=== PATIENT | male | born 1980 | race Two or more races ===

== ENCOUNTER → 2016-12-11 | Day surgery (SDC) | payer MEDICARE, MEDICAID ==
[~2016-12-11] VITALS: Ht 175.3 cm; Wt 104.8 kg
[~2016-12-11] MED LIST: DEXAMETHASONE SOD PHOS 10MG/1ML VIAL INJ ONE; HYDROmorphone HCL 2 MG/ML VL IV PRN; KETOROLAC TROMETH 30 MG/ML 1ML VIAL IV ONE; LABETALOL HCL 5 MG/ML 4ML SYRINGE IV PRN; METOCLOPRAMIDE HCL 5MG/ml INJ 2ml VIAL IV ONE; MIDAZOLAM HCL 1MG/1ML-2 ML VIAL IV PRN; MIDAZOLAM HCL 1MG/1ML-2 ML VIAL ONE; MORPHINE SULF INJ 2 MG/ML SYRINGE 1ML IV PRN; ONDANSETRON HCL 4 MG/2 ML VIAL IV ONE; PROPOFOL 10 MG/ML 20 ML IV ONE; ceFAZolin 1GM/50ML D5W 50 ML IV ONE; ePHEDrine SULFATE 50 MG/ML AMP IV PRN; fentaNYL CITRATE 100 MCG/2 ML VL ONE
[2016-12-11 15:30] VITALS: BP 154/83
== END | disposition home or self-care (01) ==
LOC: SUR 09:29
PROVIDERS: ATTEND Urology
DX: N34.2 Other urethritis (principal); E66.9 Obesity, unspecified
CPT/HCPCS: 52224; C1769; J0690; J1100; J2250; J2704; J2765; J3010; J7030

== ENCOUNTER 2017-10-29 17:13 | Emergency (ER) | payer MEDICAID, MEDICARE ==
[~2017-10-29] VITALS: Ht 172.7 cm; Wt 158.8 kg
[2017-10-29 17:30] VITALS: BP 133/70
[2017-10-29 18:04] LABS: Basophils # (auto) 0 uL; Basophils % (auto) 0.5 % (0.0-2.0); Eosinophils # (auto) 0.1 uL; Eosinophils % (auto) 2.4 % (0.0-7.0); Hematocrit 40.8 % (41.0-53.0); Hemoglobin 13.7 g/dL (13.5-17.5); Lymphocytes # (auto) 0.9 uL; Lymphocytes % (auto) 17.7 % (10.0-50.0); Mean Corpuscular Hemoglobin 29.3 pg (28.0-32.0); Mean Corpuscular Hgb Conc. 33.6 g/dL (32.0-36.0); Mean Corpuscular Volume 87.2 fL (80.0-100.0); Monocytes # (auto) 0.6 uL; Monocytes % (auto) 11.1 % (0.0-12.0); Neutrophils # (auto) 3.4 uL; Neutrophils % (auto) 68.3 % (37.0-80.0); Nucleated Red Blood Cells % 0.3 %; Platelet Count (auto) 254 10^3/uL (140-450); Red Blood Cells 4.68 10^6/uL (4.5-5.90); Red Cell Distribution Width 14.7 % (11.8-14.3)
[2017-10-29 18:12] LABS: Albumin 3.1 g/dL (3.4-5.0); BUN/Creatinine Ratio 9.5; Bilirubin, Total 0.2 mg/dL (0.2-1.0); Calcium 8.3 mg/dL (8.5-10.1); Potassium 3.9 mmol/L (3.5-5.1); Total Protein 6.9 g/dL (6.4-8.2)
[2017-10-29 18:30] LABS: INR 0.97 (0.9-1.15); Partial Thromboplastin Time 27.2 sec (23.78-33.04); Prothrombin Time 10.4 sec (9.27-12.13)
== END 2017-10-29 22:21 | disposition home or self-care (01) ==
LOC: EDBD 17:13 → ER 17:17
DX: K52.9 Noninfective gastroenteritis and colitis, unspecified (principal); E78.5 Hyperlipidemia, unspecified; I10 Essential (primary) hypertension; E07.9 Disorder of thyroid, unspecified; Z88.8 Allergy status to other drugs, medicaments and biological substances
CPT/HCPCS: 36415; 80053; 85025; 85610; 85730

== ENCOUNTER 2024-03-16 22:48 | Inpatient (IN) | payer OTHER, MEDICAID ==
[~2024-03-16] VITALS: Ht 165.1 cm; Wt 156.2 kg
[2024-03-17 00:21] LABS: Basophils # (auto) 0 10 ^3/uL (0-0.2); Basophils % (auto) 0.4 % (0.0-2.0); Eosinophils # (auto) 0.1 10 ^3/uL (0-0.8); Eosinophils % (auto) 1.7 % (0.0-7.0); Hematocrit 35.7 % (41.0-53.0); Hemoglobin 12.3 g/dL (13.5-17.5); Lymphocytes # (auto) 1.5 10 ^3/uL (0.4-5.4); Lymphocytes % (auto) 28.3 % (10.0-50.0); Mean Corpuscular Hemoglobin 30.1 pg (28.0-32.0); Mean Corpuscular Hgb Conc. 34.6 g/dL (32.0-36.0); Monocytes # (auto) 0.5 10 ^3/uL (0-1.3); Monocytes % (auto) 10.2 % (0.0-12.0); Neutrophils # (auto) 3.1 10 ^3/uL (1.6-8.6); Neutrophils % (auto) 59.4 % (37.0-80.0); Platelet Count (auto) 168 10^3/uL (140-450); Red Cell Distribution Width 15.3 % (11.8-14.3); White Blood Cell 5.2 10^3/uL (4.4-10.8)
[2024-03-17 00:32] LABS: Chloride 107 mmol/L (98-107); Potassium 4.3 mmol/L (3.5-5.1); Sodium 139 mmol/L (136-145)
[2024-03-17 00:33] LABS: Anion Gap 7 (5-15); Carbon Dioxide 25 mmol/L (20-31)
[2024-03-17 00:34] LABS: Calcium 8.9 mg/dL (8.7-10.4)
[2024-03-17 00:38] LABS: Glucose 245 mg/dL (74-106)
[2024-03-17 00:39] LABS: BUN/Creatinine Ratio 13.9 (10.0-20.0); Blood Urea Nitrogen 11 mg/dL (9-23)
[2024-03-17 00:54] LABS: Lactic Acid w/Reflex 2.3 mmol/L (0.4-2.0)
--- NOTE | 2024-03-17 01:23 | ED.PDOC ---
History of Present Illness HPI Comments 43 y/o M with Hx of ASD, cerebral palsy, HLD. HTN, seizures, thyroid disease, and morbid obesity BIBA for c/o non-radiating, left-sided chest pain, shortness of breath, cough and fever, onset this morning. Patient is a resident of a longterm facility. He reports ongoing chest pain which is to left chest and radiates to the axillary area. He denies nausea, vomiting or sweating. Chief Complaint: Shortness of Breath Time Seen by MD: 00:40 Reviewed Notes: Nurses Notes, Improvement Lead Notes, Medications, Allergies Allergies: Coded Allergies: Paliperidone (Verified Allergy, Severe, 12/11/16) Risperidone (Verified Allergy, Severe, 12/11/16) Ondansetron (Unverified Allergy, Unknown, NAUSEA, 10/29/17) Sulfamethoxazole w/Trimethoprim (Verified Allergy, Unknown, 12/11/16) Information Source: Patient, Emergency Med Personnel Mode of Arrival: EMS Severity: Moderate Timing: Hours Duration: Since onset Prehospital treatment: 12 Lead EKG, [employer] Past Medical History PAST MEDICAL HISTORY: High Lipids, HTN, Seizures, Thyroid Past Medical History (Other): ASD, cerebral palsy, morbid obesity Surgical History: Denies all surgeries Family History Family History: Unknown Social History Smoker: Non-Smoker Alcohol: Denies ETOH Use Drugs: Denies Drug Use Lives In: Home (longterm) Constitutional: reports: fever; denies: chills, diaphoresis, fatigue, malaise, sweats, weakness, others EENTM: denies: blurred vision, double vision, ear bleeding, ear discharge, ear drainage, ear pain, ear ringing, eye pain, eye redness, hearing loss, mouth pain, mouth swelling, nasal discharge, nose bleeding, nose congestion, nose pain, photophobia, tearing, throat pain, throat swelling, voice changes, others Respiratory: reports: cough, shortness of breath; denies: hemoptysis, or thopnea, SOB at rest, SOB with excertion, stridor, wheezing, others Cardiovascular: reports: chest pain; denies: dizzy spells, diaphoresis, Dyspnea on exertion, edema, irregular heart beat, left arm pain, lightheadedness, palpitations, PND, syncope, others Gastrointestinal: denies: abdomen distended, abdominal pain, blood streaked bowels, constipated, diarrhea, dysphagia, difficulty swallowing, hematemesis, melena, nausea, poor appetite, poor fluid intake, rectal bleeding, rectal pain, vomiting, others Genitourinary: denies: burning, dysuria, flank pain, frequency, hematuria, incontinence, penile discharge, penile sore, pain, testicle pain, testicle swelling, urgency, others Neurological: denies: dizziness, fainting, headache, left sided numbness, left sided weakness, numbness, paresthesia, pre-existing deficit, right sided numbness, right sided weakness, seizure, speech problems, tingling, tremors, we akness, others Musculoskeletal: denies: back pain, gout, joint pain, joint swelling, muscle pain, muscle stiffness, neck pain, others Integumetry: denies: bruises, change in color, change in hair/nails, dryness, laceration, lesions, lumps, rash, wounds, others Allergic/Immunocompromised: denies: Difficulty Healing, Frequent Infections, Hives, Itching, others Hematologic/Lymphatic: denies: anemia, blood clots, easy bleeding, easy bruising, swollen glands, others Endocrine: denies: excessive hunger, excessive sweating, excessive thirst, excessive urination, flushing, intolerance to cold, intolerance to heat, unexplained weight gain, unexplained weight loss, others Psychiatric: denies: anxiety, bipolar disorder, depression, hopeless, panic disorder, schizophrenia, sleepless, suicidal, others All Other Systems: Reviewed and Negative Physical Exam General Appearance: No Apparent Distress, Obese HEENT: PERRL/EOMI Neck: Full Range of Motion, Normal Inspection Respiratory: Decreased Breath Sounds, No Accessory Muscle Use, No Respiratory Distress Cardiovascular: No JVD, Regular Rate/Rhythm Breast Exam: Deferred Gastrointestinal: Non Tender, Soft Genitalia: Deferred Pelvic: Deferred Rectal: Deferred Extremities: Leg edema, Normal range of motion, Non-tender, Pedal edema Neurologic: Alert, Normal Mood, Other (Flat affect) Cerebellar Function: NOT DONE Reflexes: NOT DONE Skin: Dry, Normal Color, Warm Lymphatic: NOT DONE Was a procedure done? Was a procedure done?: No EKG EKG : Comments Sinus rhythm, rate 73, normal intervals, normal axis, normal QRS, nonspecific T change. Differential Dx Considerations may include: Bronchitis, pneumonia, viral syndrome, URI, chest wall pain, ACS, OR, PE, among others X-Ray, Labs, Meds, VS Vital Signs Date Time Temp Pulse Resp B/P (MAP) Pulse Ox O2 Delivery O2 Flow Rate FiO2 03/16/24 23:01 98.9 74 17 140/83 (102) 96 03/16/24 23:00 17 96 Room Air* 0 21 03/16/24 22:51 73 Lab Test 03/17/24 04:25 03/17/24 01:55 03/16/24 23:59 Range/Units Urine Color Pending Urine Clarity Pending Urine pH Pending Urine Specific [place] Pending Urine Protein Pending Urine Ketones Pending Urine Blood Pending Urine Nitrite Pending Urine Bilirubin Pending Urine Urobilinogen Pending Urine Leukocyte Esterase Pending Urine RBC Pending Urine WBC Pending Urine Squamous Epithelial Cells Pending Urine Bacteria Pending Urine Glucose Pending Lactic Acid Level 1.6 2.3 *H 0.4-2.0 mmol/L Troponin I High Sensitivity < 3 L < 3 L </=54 ng/L White Blood Count 5.2 4.4-10.8 10^3/uL Red Blood Count 4.10 L 4.5-5.90 10^6/uL Hemoglobin 12.3 L 13.5-17.5 g/dL Hematocrit 35.7 L 41.0-53.0 % Mean Corpuscular Volume 87.0 80.0-100.0 fL Mean Corpuscular Hemoglobin 30.1 28.0-32.0 pg Mean Corpuscular Hemoglobin Concent 34.6 32.0-36.0 g/dL Red Cell Distribution Width 15.3 H 11.8-14.3 % Platelet Count 168 140-450 10^3/uL Mean Platelet Volume 7.5 6.9-10.8 fL Neutrophils (%) (Auto) 59.4 37.0-80.0 % Lymphocytes (%) (Auto) 28.3 10.0-50.0 % Monocytes (%) (Auto) 10.2 0.0-12.0 % Eosinophils (%) (Auto) 1.7 0.0-7.0 % Basophils (%) (Auto) 0.4 0.0-2.0 % Neutrophils # (Auto) 3.1 1.6-8.6 10 ^3/uL Lymphocytes # (Auto) 1.5 0.4-5.4 10 ^3/uL Monocytes # (Auto) 0.5 0-1.3 10 ^3/uL Eosinophils # (Auto) 0.1 0-0.8 10 ^3/uL Basophils # (Auto) 0 0-0.2 10 ^3/uL Nucleated Red Blood Cells 0.0 % Sodium Level 139 136-145 mmol/L Potassium Level 4.3 3.5-5.1 mmol/L Chloride Level 107 98-107 mmol/L Carbon Dioxide Level 25 20-31 mmol/L Anion Gap 7 5-15 Blood Urea Nitrogen 11 9-23 mg/dL Creatinine 0.79 0.700-1.30 mg/dL Glomerular Filtration Rate Calc 114 >90 mL/min BUN/Creatinine Ratio 13.9 10.0-20.0 Serum Glucose 245 H 74-106 mg/dL Calcium Level 8.9 8.7-10.4 mg/dL B-Type Natriuretic Peptide 9.26 0-100 pg/mL PROCEDURE(s): CXRP - CHEST PORTABLE REASON: cp ORDER NUMBER(s): [id number], ACCESSION NUMBER(s): [id number] CHEST RADIOGRAPH Indication: cp Technique: Single frontal view of the chest was obtained Comparison: None FINDINGS: Lines and Tubes: None Lungs: No focal consolidation. Pleura: No effusion. No pneumothorax. Cardiomediastinal contours: Unremarkable Bones: No acute osseous abnormality. IMPRESSION: 1. No acute cardiopulmonary disease. X-Ray, Labs, Meds, VS Comment 43 y/o M with Hx of ASD, cerebral palsy, HLD. HTN, seizures, thyroid disease, and morbid obesity complaining of shortness a breath, cough, subjective fever and chest pain Vitals unremarkable Exam remarkable for diminished breath sounds, lower extremity edema EKG sinus rhythm, nonspecific T changes Chest x-ray unremarkable CBC unremarkable, basic metabolic panel remarkable for glucose 245, BNP and serial troponins negative Lactate 2.3 Patient treated with the following in the ED: Albuterol 5 mg/Atrovent 0.5 mg nebulized, aspirin 325 mg p.o. On re-evaluation, patient appears to be resting comfortably, but still complaining of chest pain. Heart score is 4. Plan is to admit the patient for Cardiology evaluation. Time of 1ST Reevaluation: 01:10 Reevaluation 1ST: Unchanged Time of 2ND Reevaluation: 05:21 Reevaluation 2ND: Unchanged Patient Education/Counseling: Diagnosis, Treatment Family Education/Counseling: No Family Present Departure 1 Departure Time of Disposition: 05:21 Impression: Primary Impression: Chest pain Qualified Codes: I25.9 - Chronic ischemic heart disease, unspecified Disposition: 09 ADMITTED INPATIENT Admit to: Tele Condition: Guarded Critical Care Note Critical Care Time?: No Stability Stability form required: No Heart Score Heart Score: Heart Score Response (Comments) Value History Moderate Suspicious 1 EKG Repolarization Disturb 1 Age <45 0 Risk Factors >3 or Hx ASHD 2 Troponin Normal limit 0 Total 4 I personally scribed for ANTONETTE LOPEZ MD ([email or web address]) on 03/17/24 at 01:23. Electronically submitted by Denzel Robles [email or web address]). ANTONETTE LOPEZ MD Mar 17, 2024 01:23
[2024-03-17 04:51] LABS: Urine Bacteria None Seen /hpf (None Seen)
--- NOTE | 2024-03-17 05:12 | DVH ---
CHEST RADIOGRAPH Indication: cp Technique: Single frontal view of the chest was obtained Comparison: None FINDINGS: Lines and Tubes: None Lungs: No focal consolidation. Pleura: No effusion. No pneumothorax. Cardiomediastinal contours: Unremarkable Bones: No acute osseous abnormality. IMPRESSION: 1. No acute cardiopulmonary disease.
[2024-03-17] MEDS: ASPirin 325 MG TAB PO ONE (05:20)
[2024-03-17] MEDS: ALBUTEROL SULF 2.5 MG/0.5ML(0.5%) NEB SOLN NEB ONE (05:22)
[2024-03-17 05:23] VITALS: BP 118/80; PULSE 74; RESP 16; TEMP 97; O2SAT 100
[2024-03-17] MEDS: IPRATROPIUM BROM 0.5 MG/2.5ML INH SOL NEB ONE (05:23)
[2024-03-17 05:51] LABS: Urine Blood TRACE /uL (Negative); Urine Clarity Clear (Clear); Urine Color Yellow (Yellow); Urine Mucus FEW (None Seen); Urine Protein, UAD TRACE (Negative); Urine Specific Gravity 1.036 (1.001-1.035); Urine Urobilinogen 2 mg/dL (Negative); Urine WBC 2 /hpf (0 - 3)
[2024-03-17 06:36] VITALS: PULSE 69; RESP 20; O2SAT 97
--- NOTE | 2024-03-17 07:14 | DVHHP2 ---
History of Present Illness Reason for Visit: Chest pain History of Present Illness 43-year-old male presents for evaluation of chest pain. Patient presents with a one day history of left-sided chest pain that is nonradiating and associated shortness for breath. Denies fever or chills. Denies nausea or vomiting. No other acute complaints reported. Past Medical History Seizure, thyroid, autism, hypertension, dyslipidemia, morbid obesity, cerebral palsy Past Surgical History None Family History Noncontributory Smoke: No ALCOHOL: none Drugs: None Lives: with Family Review of Systems Review of Systems Systems are currently negative otherwise addressed in HPI. Allergies: Coded Allergies: Paliperidone (Verified Allergy, Severe, 12/11/16) Risperidone (Verified Allergy, Severe, 12/11/16) Ondansetron (Unverified Allergy, Unknown, NAUSEA, 10/29/17) Sulfamethoxazole w/Trimethoprim (Verified Allergy, Unknown, 12/11/16) Medications Current Medications Medications Dose Ordered Sig/[place] Route Start Time Stop Time Status Last Admin Dose Admin Lisinopril 20 mg DAILY PO 03/17/24 10:00 UNV Divalproex Sodium 500 mg BID PO 03/17/24 10:00 UNV Tamsulosin HCl 0.4 mg QPM PO 03/17/24 18:00 UNV Fluoxetine HCl 20 mg DAILY PO 03/17/24 10:00 UNV Quetiapine Fumarate 200 mg BID PO 03/17/24 10:00 UNV Aspirin 81 mg DAILY PO 03/17/24 10:00 UNV Atorvastatin Calcium 10 mg HS PO 03/17/24 22:00 UNV Albuterol 2.5 mg Q6HPRN PRN NEB 03/17/24 07:15 UNV Temazepam 15 mg QHSP PRN PO 03/17/24 07:15 UNV Ondansetron HCl 4 mg Q4HP PRN IV 03/17/24 07:15 UNV Acetaminophen 650 mg Q6HP PRN PO 03/17/24 07:15 UNV Nitroglycerin 0.4 mg Q5MINP PRN SL 03/17/24 07:15 UNV Morphine Sulfate 2 mg Q30M PRN IV 03/17/24 07:15 UNV Exam Vital Signs Vital Signs Date Time Temp Pulse Resp B/P (MAP) Pulse Ox O2 Delivery O2 Flow Rate FiO2 03/17/24 06:36 69 20 97 Room Air* 0 21 03/17/24 06:02 97.7 118/80 (40) 97.7 Exam Gen: 43-year-old male in mild distress, obese Skin: Warm, dry, normal color and texture, no rash. HEENT: Normocephalic atraumatic, mucous membranes moist and pink. Neck: Cervical and supraclavicular nodes normal without enlargement, trachea is midline, thyroid gland is normal without masses. Pulmonary: Clear to auscultation and percussion bilaterally. Cardiac: Regular rate and rhythm. No murmur Abdomen: Soft, nontender, nondistended, bowel sounds present all 4 quadrants, no guarding, no rigidity, no organomegaly. Extremities: No cyanosis, clubbing, no edema Neuro: Cranial nerves II through XII grossly intact, normal affect and speech, no focal motor deficits. Labs/Xrays ORDERING PHYSICIAN: ANTONETTE LOPEZ MD PROCEDURE(s): CXRP - CHEST PORTABLE REASON: cp ORDER NUMBER(s): [id number], ACCESSION NUMBER(s): [id number] CHEST RADIOGRAPH Indication: cp Technique: Single frontal view of the chest was obtained Comparison: None FINDINGS: Lines and Tubes: None Lungs: No focal consolidation. Pleura: No effusion. No pneumothorax. Cardiomediastinal contours: Unremarkable Bones: No acute osseous abnormality. IMPRESSION: 1. No acute cardiopulmonary disease. Labs Test 03/17/24 04:25 03/17/24 01:55 03/16/24 23:59 Range/Units Urine Color Yellow Yellow Urine Clarity Clear Clear Urine pH 6.0 5.0-9.0 Urine Specific [place] 1.036 H 1.001-1.035 Urine Protein Trace H Negative Urine Ketones 1+ H Negative Urine Blood Trace H Negative /uL Urine Nitrite Negative Negative Urine Bilirubin Negative Negative Urine Urobilinogen 2 H Negative mg/dL Urine Leukocyte Esterase Negative Negative /uL Urine RBC 13 0 - 3 /hpf Urine WBC 2 0 - 3 /hpf Urine Squamous Epithelial Cells Few <5 /hpf Urine Bacteria None seen None Seen /hpf Urine Mucus Few None Seen Urine Glucose 4+ H Normal mg/dL Lactic Acid Level 1.6 0.4-2.0 mmol/L Troponin I High Sensitivity < 3 L </=54 ng/L White Blood Count 5.2 4.4-10.8 10^3/uL Red Blood Count 4.10 L 4.5-5.90 10^6/uL Hemoglobin 12.3 L 13.5-17.5 g/dL Hematocrit 35.7 L 41.0-53.0 % Mean Corpuscular Volume 87.0 80.0-100.0 fL Mean Corpuscular Hemoglobin 30.1 28.0-32.0 pg Mean Corpuscular Hemoglobin Concent 34.6 32.0-36.0 g/dL Red Cell Distribution Width 15.3 H 11.8-14.3 % Platelet Count 168 140-450 10^3/uL Mean Platelet Volume 7.5 6.9-10.8 fL Neutrophils (%) (Auto) 59.4 37.0-80.0 % Lymphocytes (%) (Auto) 28.3 10.0-50.0 % Monocytes (%) (Auto) 10.2 0.0-12.0 % Eosinophils (%) (Auto) 1.7 0.0-7.0 % Basophils (%) (Auto) 0.4 0.0-2.0 % Neutrophils # (Auto) 3.1 1.6-8.6 10 ^3/uL Lymphocytes # (Auto) 1.5 0.4-5.4 10 ^3/uL Monocytes # (Auto) 0.5 0-1.3 10 ^3/uL Eosinophils # (Auto) 0.1 0-0.8 10 ^3/uL Basophils # (Auto) 0 0-0.2 10 ^3/uL Nucleated Red Blood Cells 0.0 % Sodium Level 139 136-145 mmol/L Potassium Level 4.3 3.5-5.1 mmol/L Chloride Level 107 98-107 mmol/L Carbon Dioxide Level 25 20-31 mmol/L Anion Gap 7 5-15 Blood Urea Nitrogen 11 9-23 mg/dL Creatinine 0.79 0.700-1.30 mg/dL Glomerular Filtration Rate Calc 114 >90 mL/min BUN/Creatinine Ratio 13.9 10.0-20.0 Serum Glucose 245 H 74-106 mg/dL Calcium Level 8.9 8.7-10.4 mg/dL B-Type Natriuretic Peptide 9.26 0-100 pg/mL Assessment/Plan Assessment/Plan Assessment Chest pain rule out ACS Hypertension Autism History of seizures Plan Admit the patient to telemetry to the hospitalist ACS protocol Echocardiogram pending Resume home medications Continue treatment per orders. Plan discussed with: Patient My Orders Orders - OLIVARESMARLINE FONTANA AGACNP Procedure Category Date Status Time * Cardiology Consult CONS 03/17/24 Transmitted 07:04 Lisinopril Tablet PHA 03/17/24 Logged (Zestril Tablet) 10:[address] Tablet PHA 03/17/24 Logged (Depakote "Dr" Tabl 10:00 Tamsulosin PHA 03/17/24 Logged Hydrochloride (Flomax) 18:00 Fluoxetine Capsule PHA 03/17/24 Logged (Prozac Capsule) 10:00 Quetiapine Fumarate PHA 03/17/24 Logged Tablet (Seroquel Tab 10:00 Aspirin Tablet PHA 03/17/24 Logged 10:00 Atorvastatin (Lipitor) PHA 03/17/24 Logged 22:00 Albuterol Medneb PHA 03/17/24 Logged (Ventolin Medneb) 07:15 Basic Metabolic Panel LAB 03/18/24 Verified 04:00 Admit ADMIT 03/17/24 Transmitted 07:04 Temazepam (Restoril) PHA 03/17/24 Logged 07:15 Ondansetron Hcl PHA 03/17/24 Logged (Zofran) 07:15 Complete Blood Count LAB 03/18/24 Verified 04:00 Cardiac DIET 03/17/24 Transmitted Diet-2gna,Lofat,Lochol Breakfast Echo 2d Mode Cardiac US 03/17/24 Logged DOP 07:04 Condition: Fair [facility] 03/17/24 In Process 07:04 Acetaminophen Tablet [facility] 03/17/24 Logged (Tylenol Tablet) 07:15 Bedrest With Bathroom [facility] 03/17/24 In Process Privileg 07:04 Nitroglycerin [facility] 03/17/24 Logged Sublingual (Ntrostat 07:15 Morphine Sulfate PHA 03/17/24 Logged Injection 07:15 Stat Ekg For Chest [facility] 03/17/24 In Process Pain 07:04 Notify Md Of Changes [facility] 03/17/24 In Process From Base 07:04 Assistant Distribution Manager For [facility] 03/17/24 In Process 24 Hours 07:04 Emergency Dysrhythmia [facility] 03/17/24 In Process Protocol 07:04 Rhythm Strips Once [facility] 03/17/24 In Process Every Shift 07:04 Oxygen By Nasal RT 03/17/24 Transmitted Cannula 07:04 Date of Service: Mar 17, 2024 Billing Provider: MARLINE OLIVARES Common Visit Codes: [id number] INP/OBS CARE (HIGH) MARLINE OLIVARES Mar 17, 2024 07:14
[2024-03-17] MEDS ORDERED: TEMAZEPAM 15 MG CAP PO PRN (07:15)
[2024-03-17] MEDS ORDERED: NITROGLYCERIN 0.4 MG SL TAB SL PRN (07:15)
[2024-03-17] MEDS ORDERED: ALBUTEROL SULF 2.5 MG/0.5ML(0.5%) NEB SOLN NEB PRN (07:15)
--- NOTE | 2024-03-17 08:58 | DVHINCON2 ---
Date Seen: Mar 17, 2024 Referring Physician TRINA Read Reason for Consultation Chest pain History of Present Illness This is a 43-year-old male who presented to the emergency room via EMS from a intermediate facility with a chief complaint of chest pain since last night. Describes his chest pain as substernal radiating to the left area, pressure- like, worse with inspiration/expiration, and worse with movement. The pain was reproducible upon auscultation. He underwent a 12 lead electrocardiogram revealing normal sinus rhythm. Serial troponin levels are negative. Significant medical history includes congenital heart disease with atrial septal defect, cerebral palsy, seizure activity, autism, hypertension, depression, and morbid obesity. Past Medical History Past medical history reviewed. No other significant than mentioned above. Past Surgical History Falling object retrieval from urethra Family History Unable to obtain family history at this time. Social History Unable to obtain social history this time. Allergies: Coded Allergies: Paliperidone (Verified Allergy, Severe, 12/11/16) Risperidone (Verified Allergy, Severe, 12/11/16) Ondansetron (Unverified Allergy, Unknown, NAUSEA, 10/29/17) Sulfamethoxazole w/Trimethoprim (Verified Allergy, Unknown, 12/11/16) Home Meds Home medications reviewed. Current Medications Current Medications Medications (Trade) Dose Ordered Sig/[place] Route PRN Reason Start Time Stop Time Status Last Admin Lisinopril (Zestril Tablet) 20 mg DAILY PO 03/17/24 10:00 Divalproex Sodium (Depakote "Dr" Tablet) 500 mg BID PO 03/17/24 10:00 Tamsulosin HCl (Flomax) 0.4 mg QPM PO 03/17/24 18:00 Fluoxetine HCl (PROzac CAPSULE) 20 mg DAILY PO 03/17/24 10:00 Quetiapine Fumarate (SEROquel TABLET) 200 mg BID PO 03/17/24 10:00 Aspirin 81 mg DAILY PO 03/17/24 10:00 Atorvastatin Calcium (Lipitor) 10 mg HS PO 03/17/24 22:00 Albuterol (Ventolin Medneb) 2.5 mg Q6HPRN PRN NEB SHORTNESS OF BREATH 03/17/24 07:15 Temazepam (Restoril) 15 mg QHSP PRN PO FOR INSOMNIA 03/17/24 07:15 Ondansetron HCl (Zofran) 4 mg Q4HP PRN IV NAUSEA / VOMITING 03/17/24 07:15 Acetaminophen (Tylenol Tablet) 650 mg Q6HP PRN PO PAIN SCALE 1-3 OR TEMP>100.4 03/17/24 07:15 Nitroglycerin (Ntrostat Sublingual) 0.4 mg Q5MINP PRN SL FOR CHEST PAIN 03/17/24 07:15 Morphine Sulfate 2 mg Q30M PRN IV FOR CHEST PAIN 03/17/24 07:15 Review of Systems Constitutional: No symptom reported Ears, Nose, & Throat: No symptom reported Eyes: No symptom reported Neurological: No symptoms reported Pulmonary/Respiratory: No symptom reported Cardiovascular: No symptom reported Gastrointestinal: No symptom reported Genitourinary: No symptom reported Musculoskeletal: Chest pain Skin: No symptom reported Psychiatric: No symptom reported Endocrine: No symptom reported Hemotologic/Lymphatic: No symptom reported Vital Signs Vital Signs Date Time Temp Pulse Resp B/P (MAP) Pulse Ox O2 Delivery O2 Flow Rate FiO2 03/17/24 06:36 69 20 97 Room Air* 0 21 03/17/24 06:02 97.7 118/80 (93) 97.7 Physical Exam General Appearance: Cooperative. Cognitive delay present. Morbidly obese. In no acute distress Head Exam: Normal inspection Neck Exam: Normal inspection. Non-tender. Normal alignment Pulmonary/Respiratory: Chest tender to palpation/auscultation. Clear bilateral breath sounds Cardiovascular/Chest: Regular rate and rhythm. S1, S2. NSR. No murmurs. No JVD. Peripheral Pulses: 2+ Radial (R). 2+ Radial (L). 2+ Pedal (R). 2+ Pedal (L) Abdominal Exam: Normal bowel sounds. Soft. Nontender. Ankle Exam: Negative ankle edema Lower extremities: Negative lower extremity edema Neuro/Mental Status: A&O x3. Coherent. Positive cognitive delay Thoughts/Psych: Normal thought pattern. Appropriate mood and affect. Passive Appearance: In no acute distress Skin Exam: Normal inspection. Normal color. Warm. Dry Labs/Diagnostic Data Labs Test 03/17/24 04:25 03/17/24 01:55 03/16/24 23:59 Range/Units Urine Color Yellow Yellow Urine Clarity Clear Clear Urine pH 6.0 5.0-9.0 Urine Specific [place] 1.036 H 1.001-1.035 Urine Protein Trace H Negative Urine Ketones 1+ H Negative Urine Blood Trace H Negative /uL Urine Nitrite Negative Negative Urine Bilirubin Negative Negative Urine Urobilinogen 2 H Negative mg/dL Urine Leukocyte Esterase Negative Negative /uL Urine RBC 13 0 - 3 /hpf Urine WBC 2 0 - 3 /hpf Urine Squamous Epithelial Cells Few <5 /hpf Urine Bacteria None seen None Seen /hpf Urine Mucus Few None Seen Urine Glucose 4+ H Normal mg/dL Lactic Acid Level 1.6 0.4-2.0 mmol/L Troponin I High Sensitivity < 3 L </=54 ng/L White Blood Count 5.2 4.4-10.8 10^3/uL Red Blood Count 4.10 L 4.5-5.90 10^6/uL Hemoglobin 12.3 L 13.5-17.5 g/dL Hematocrit 35.7 L 41.0-53.0 % Mean Corpuscular Volume 87.0 80.0-100.0 fL Mean Corpuscular Hemoglobin 30.1 28.0-32.0 pg Mean Corpuscular Hemoglobin Concent 34.6 32.0-36.0 g/dL Red Cell Distribution Width 15.3 H 11.8-14.3 % Platelet Count 168 140-450 10^3/uL Mean Platelet Volume 7.5 6.9-10.8 fL Neutrophils (%) (Auto) 59.4 37.0-80.0 % Lymphocytes (%) (Auto) 28.3 10.0-50.0 % Monocytes (%) (Auto) 10.2 0.0-12.0 % Eosinophils (%) (Auto) 1.7 0.0-7.0 % Basophils (%) (Auto) 0.4 0.0-2.0 % Neutrophils # (Auto) 3.1 1.6-8.6 10 ^3/uL Lymphocytes # (Auto) 1.5 0.4-5.4 10 ^3/uL Monocytes # (Auto) 0.5 0-1.3 10 ^3/uL Eosinophils # (Auto) 0.1 0-0.8 10 ^3/uL Basophils # (Auto) 0 0-0.2 10 ^3/uL Nucleated Red Blood Cells 0.0 % Sodium Level 139 136-145 mmol/L Potassium Level 4.3 3.5-5.1 mmol/L Chloride Level 107 98-107 mmol/L Carbon Dioxide Level 25 20-31 mmol/L Anion Gap 7 5-15 Blood Urea Nitrogen 11 9-23 mg/dL Creatinine 0.79 0.700-1.30 mg/dL Glomerular Filtration Rate Calc 114 >90 mL/min BUN/Creatinine Ratio 13.9 10.0-20.0 Serum Glucose 245 H 74-106 mg/dL Calcium Level 8.9 8.7-10.4 mg/dL B-Type Natriuretic Peptide 9.26 0-100 pg/mL Assessment Noncardiac chest pain, pleuritic in nature Rule out structural heart disease Congenital heart disease with ASD Hypertension Cerebral palsy Seizure activity Morbid obesity Autism Plan/Recommendation (Dr. Mackey) The patient presents with noncardiac chest pain. The symptoms are pleuritic in nature. Given history of congenital heart disease including an atrial septal defect we will continue further cardiac evaluation with a transthoracic echocardiogram with a bubble study. In the setting of an unremarkable ec hocardiogram, there is no further cardiac workup indicated at this time. Thank you for allowing us to participate in this patient's care. Please call if you have any questions or concerns. This medical document was created using an electronic medical record system with voice recognition software and computerized dictation system. Although this document has been carefully reviewed, there might still be some phonetic and typographical errors. Occasional wrong-word or ``sound-alike substitutions may have occurred due to the inherent limitations of voice recognition software. These areas are purely typographical due to imperfections of the software programs and do not reflect any compromise in the patient's medical care. Please read the chart carefully and recognize, using context, where these substitutions have occurred. Plan discussed with: Patient, Other Date of Service: Mar 17, 2024 Billing Provider: PATY MACKEY MD Cardiology Common Codes: [id number] INP/OBS CARE (High) STARKSANTONIA [facility] Mar 17, 2024 08:58
[2024-03-17 09:10] VITALS: PULSE 67; RESP 18; O2SAT 99
[2024-03-17] MEDS: ONDANSETRON HCL 4 MG/2 ML VIAL IV PRN (09:44)
[2024-03-17] MEDS: MORPHINE SULFATE INJ 2 MG/ml SYRG IV PRN (09:44)
--- NOTE | 2024-03-17 10:39 | ECG ---
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
[2024-03-17] MEDS: ASPirin 81 mg TAB PO SCH (11:05)
[2024-03-17] MEDS: QUEtiapine FUMARATE 100 MG TAB PO SCH (11:08)
[2024-03-17] MEDS: FLUoxetine HCL 20 MG CAP PO SCH (11:09)
[2024-03-17] MEDS: LISINOPRIL 20 MG TAB PO SCH (11:12)
[2024-03-17] MEDS ORDERED: CLON0.5T4 PO (11:51)
[2024-03-17] MEDS ORDERED: DIVA1TAB59 PO (11:51)
[2024-03-17] MEDS ORDERED: DIVA1TAB58 PO (11:51)
[2024-03-17] MEDS: TAMSULOSIN HYDROCHLORIDE 0.4 MG CAP PO SCH (18:00)
[2024-03-17 18:42] VITALS: O2SAT 96
[2024-03-17 21:00] VITALS: BP 99/58; PULSE 73; RESP 17; TEMP 98.5; O2SAT 96
[2024-03-17 21:19] LABS: COVID19 ANTIGEN SOFIA FIA NEGATIVE (NEGATIVE)
[2024-03-17 21:20] LABS: Rapid Influenza A Negative (Negative); Rapid Influenza B Negative (Negative)
[2024-03-17] MEDS: ATORVASTATIN 20 MG TAB PO SCH (21:50)
[2024-03-18] VITALS (10 sets, daily range): BP systolic 104–139; BP diastolic 58–77; PULSE 72–90; RESP 17–20; TEMP 98.3–98.6; O2SAT 93–100
[2024-03-18 05:57] LABS: Basophils # (auto) 0 10 ^3/uL (0-0.2); Basophils % (auto) 0.3 % (0.0-2.0); Eosinophils # (auto) 0.1 10 ^3/uL (0-0.8); Eosinophils % (auto) 2.5 % (0.0-7.0); Hematocrit 35.8 % (41.0-53.0); Hemoglobin 12.2 g/dL (13.5-17.5); Lymphocytes # (auto) 1.4 10 ^3/uL (0.4-5.4); Lymphocytes % (auto) 28.5 % (10.0-50.0); Mean Corpuscular Hemoglobin 29.5 pg (28.0-32.0); Mean Corpuscular Hgb Conc. 34.2 g/dL (32.0-36.0); Mean Corpuscular Volume 86.5 fL (80.0-100.0); Monocytes # (auto) 0.4 10 ^3/uL (0-1.3); Monocytes % (auto) 9.2 % (0.0-12.0); Neutrophils # (auto) 2.9 10 ^3/uL (1.6-8.6); Neutrophils % (auto) 59.5 % (37.0-80.0); Nucleated Red Blood Cells % 0.3 %; Platelet Count (auto) 177 10^3/uL (140-450); Red Blood Cells 4.14 10^6/uL (4.5-5.90); Red Cell Distribution Width 15.2 % (11.8-14.3); White Blood Cell 4.8 10^3/uL (4.4-10.8)
[2024-03-18 06:04] LABS: Anion Gap 7 (5-15); Carbon Dioxide 29 mmol/L (20-31); Chloride 105 mmol/L (98-107); Sodium 141 mmol/L (136-145)
[2024-03-18 06:05] LABS: Calcium 9.2 mg/dL (8.7-10.4)
[2024-03-18 06:10] LABS: BUN/Creatinine Ratio 13.5 (10.0-20.0); Blood Urea Nitrogen 10 mg/dL (9-23)
[2024-03-18 06:14] LABS: Glucose 120 mg/dL (74-106)
[2024-03-18] MEDS: ACETAMINOPHEN 325 MG TAB PO PRN (09:17)
[2024-03-18 12:29] LABS: Alanine Aminotransferase 12 U/L (7-40); Albumin 3.4 g/dL (3.2-4.8); Alkaline Phosphatase 65 U/L (46-116); Anion Gap 5 (5-15); Aspartate Aminotransferase 10 U/L (13-40); Bilirubin, Total 0.2 mg/dL (0.2-1.0); Blood Urea Nitrogen 13 mg/dL (9-23); Calcium 9.3 mg/dL (8.7-10.4); Carbon Dioxide 31 mmol/L (20-31); Chloride 104 mmol/L (98-107); Cholesterol 155 mg/dL (< 200); Glucose 131 mg/dL (74-106); HDL Cholesterol 31 mg/dL (40-59); LDL Cholesterol 92 mg/dL (< 100); Potassium 4.1 mmol/L (3.5-5.1); Sodium 140 mmol/L (136-145); Total Protein 5.9 g/dL (5.7-8.2)
[2024-03-18 13:11] LABS: Triglycerides 241 mg/dL (< 150)
--- NOTE | 2024-03-18 13:23 | DVHSR ---
APPROVED REPORT EXAM: Two-dimensional and M-mode echocardiogram with Doppler, color Doppler and Bubble Study. Blood Pressure: 104/64 mmHg INDICATION Chest Pain RISK FACTORS Obesity: Height: 5'5", DIMENSIONS LVDd5.0 (3.8-5.7cm)LA (2D)4.0 (1.9-4.0cm)Aortic Root3.1 (2.0-3.7cm) LVDs3.0 (2.5-4.0cm)LA (MM) (1.9-4.0cm)Aortic Cusp Exc2.4 (1.5-2.0cm) EF (%) 69.0 (55-70%)Rt. Atrium3.5 (1.9-4.0cm)Asc. Aorta3.3 cm IVSd1.0 (0.7-1.1cm)RV (D) (1.8-2.4cm) PWd0.8 (0.7-1.1cm) Mitral Valve MitralMitral Stenosis E wave0.62m/sMV Mean GR.mmHg A wave0.58m/sMV Peak GR.mmHg E/A ratio1.12D MVAcm2 DECEL Dyhc180thGEPCV 1/2 Timems Aortic Valve Aortic ValveAortic Stenosis V11.25m/Jaki Mean GR.3mmHg V21.22m/Jaki Peak GR.6mmHg LVOT Diameter2.3 (1.8-2.4cm)Doppler AVA4.25cm2 Pulmonic Valve V20.81m/s Other Information Quality : Technically LimitedRhythm : Technically limited study due to body habitus. Conclusion Normal left ventricular size and dimension. Normal left ventricular systolic function estimated ejec tion fraction 55%. Normal diastolic function. Normal right ventricular size and dimension. Normal right ventricular systolic function. Normal biatrial size and dimension. Normal aortic valve structure and function. Normal mitral valve structure and function. Normal tricuspid valve structure and function. The pulmonary valve is grossly normal. No pericardial effusion.
--- NOTE | 2024-03-18 13:36 | DVHPN2 ---
Consult Progress Note Subjective Patient reports: No new complaints Review of Systems: HEENT:Normal, CVS:Normal, RESPIRATORY:Normal, GI:Normal Objective vital signs Vital Sign Date Time Temp Pulse Resp B/P (MAP) Pulse Ox O2 Delivery O2 Flow Rate FiO2 03/18/24 13:00 73 17 115/68 (84) 94 03/18/24 10:03 Room Air* 0 21 03/18/24 09:00 98.3 98.3 Total Intake and Output 03/17/24 03/17/24 03/18/24 15:00 23:00 07:00 Intake Total 300 ml Balance 300 ml medications Current Medications Medications Dose Ordered Sig/Savana Route Start Time Stop Time Status Last Admin Dose Admin Lisinopril 20 mg DAILY PO 03/17/24 10:00 03/18/24 09:19 20 MG Divalproex Sodium 500 mg BID PO 03/17/24 10:00 03/18/24 09:20 500 MG Tamsulosin HCl 0.4 mg QPM PO 03/17/24 18:00 Fluoxetine HCl 20 mg DAILY PO 03/17/24 10:00 03/18/24 09:23 20 MG Quetiapine Fumarate 200 mg BID PO 03/17/24 10:00 03/18/24 09:18 200 MG Aspirin 81 mg DAILY PO 03/17/24 10:00 03/18/24 09:19 81 MG Atorvastatin Calcium 10 mg HS PO 03/17/24 22:00 03/17/24 21:50 10 MG Albuterol 2.5 mg Q6HPRN PRN NEB 03/17/24 07:15 Temazepam 15 mg QHSP PRN PO 03/17/24 07:15 Ondansetron HCl 4 mg Q4HP PRN IV 03/17/24 07:15 03/17/24 09:44 4 MG Acetaminophen 650 mg Q6HP PRN PO 03/17/24 07:15 03/18/24 09:17 650 MG Nitroglycerin 0.4 mg Q5MINP PRN SL 03/17/24 07:15 Morphine Sulfate 2 mg Q30M PRN IV 03/17/24 07:15 03/17/24 09:44 2 MG Examination: GENERAL:Normal, NECK:Normal laboratory and microbiology Laboratory Tests 03/18/24 11:56 03/18/24 05:28 Test 03/18/24 11:56 Range/Units Serum Glucose 131 H 74-106 mg/dL Problem List/Assessment/Plan Problems(with codes): (1) Chest pain (2) Cerebral palsy Problem List/Assessment/Plan Noncardiac chest pain, pleuritic in nature Rule out structural heart disease Congenital heart disease with ASD Hypertension Cerebral palsy Seizure activity Morbid obesity Autism Echocardiogram shows normal left ventricular systolic function with estimated ejection fraction 65%. No dynamic EKG changes was noted. No significant valve pathology was noted. Normal chamber size indicating absence of intracardiac shunting. Patient's symptom is unlikely due to cardiac etiology. I would recommend ruling out other causes of of noncardiac chest pain. Plan discussed with: Patient Date of Service: Mar 18, 2024 Billing Provider: PATY MACKEY MD Common Visit Codes: [id number] INP/OBS CARE(HIGH) PATY MACKEY MD Mar 18, 2024 13:35
--- NOTE | 2024-03-18 16:55 | DVHPNRES ---
Progress Note Date Seen: Mar 18, 2024 Resident Creating Document: CINDYTROYSHARRONDESTINY RESIDENT Medical Necessity Reason Pt with a Central, PICC or Fol: No Subjective Review of Systems Patient is a 43-year-old male with a past medical history of seizure disorder, hypothyroidism, autism, hypertension, dyslipidemia, , depression, morbid obesity, ?atrial septal defec, obstructive sleep apnea presented to the ED with a chief complaint of chest pain for 1 day prior to admission. Patient reported that he felt substernal , pressure-like and sometimes sharp chest pain radiated with a left arm which happened on sitting with worsening on taking deep breaths and change of position, associated with the shortness of breath patient denied palpitations, nausea, vomiting, abdominal pain, headache, fever, chills. On arrival to the ED 12 lead ECG was done which revealed sinus rhythm without any evidence of acute ischemia, troponin levels were within normal limits. Chest x- ray showed no acute cardiopulmonary disease. On reviewing the labs patient had elevated lactic acid at 2.3 and triglyceride elevated at 240 mg/dL. Past medical history: As per HPI Past surgical history: None reported Social history: Patient reveals that he lives in a shelter, denies smoking, alcohol, drug use. Family history: Not able to get a proper history Home medications: Lisinopril 20 mg once daily, divalproex sodium 500 mg b.i.d. p.o., fluoxetine 20 mg daily p.o., quetiapine 200 mg b.i.d. p.o., tamsulosin 0.4 mg Review of systems Patient seen and examined at the bedside. Patient is somnolent but responds to questions and wakes up to stimulation. A/O x 3. Patient reported mild chest pain which had reproducible tenderness on palpation. Patient repeatedly kept saying that he had a hole in his heart. Patient was evaluated by Cardiology and echocardiogram with a bubble study was done which showed normal left ventricular ejection fraction 65%, no significant valve pathology, normal chamber size indicating absence of intracardiac shunting. Patient had cough nonproductive for which he was started on ceftriaxone. Patient's urinalysis showed elevated urine specific gravity likely due to dehydration. Objective vital signs Vital Sign Date Time Temp Pulse Resp B/P (MAP) Pulse Ox O2 Delivery O2 Flow Rate FiO2 03/18/24 13:00 73 17 115/68 (84) 94 03/18/24 10:03 Room Air* 0 21 03/18/24 09:00 98.3 98.3 Total Intake and Output 03/17/24 03/17/24 03/18/24 15:00 23:00 07:00 Intake Total 300 ml Balance 300 ml medications Current Medications Medications Dose Ordered Sig/Savana Route Start Time Stop Time Status Last Admin Dose Admin Lisinopril 20 mg DAILY PO 03/17/24 10:00 03/18/24 09:19 20 MG Divalproex Sodium 500 mg BID PO 03/17/24 10:00 03/18/24 09:20 500 MG Tamsulosin HCl 0.4 mg QPM PO 03/17/24 18:00 Fluoxetine HCl 20 mg DAILY PO 03/17/24 10:00 03/18/24 09:23 20 MG Quetiapine Fumarate 200 mg BID PO 03/17/24 10:00 03/18/24 09:18 200 MG Aspirin 81 mg DAILY PO 03/17/24 10:00 03/18/24 09:19 81 MG Albuterol 2.5 mg Q6HPRN PRN NEB 03/17/24 07:15 Temazepam 15 mg QHSP PRN PO 03/17/24 07:15 Ondansetron HCl 4 mg Q4HP PRN IV 03/17/24 07:15 03/17/24 09:44 4 MG Acetaminophen 650 mg Q6HP PRN PO 03/17/24 07:15 03/18/24 09:17 650 MG Nitroglycerin 0.4 mg Q5MINP PRN SL 03/17/24 07:15 Morphine Sulfate 2 mg Q30M PRN IV 03/17/24 07:15 03/17/24 09:44 2 MG Atorvastatin Calcium 20 mg HS PO 03/18/24 22:00 Ceftriaxone Sodium 50 ml @ 100 mls/hr DAILY@09 IV 03/19/24 09:00 Examination Physical Examination Gen - no pallor, no icterus, no cyanosis, no clubbing, no LAD, no edema . Skin - Patients skin is warm and dry HEENT - normocephalic, atraumatic, moist mucous membranes. Neck - full ROM, no LAD, no JVD Pulmonary - B/L vesicular breath sounds. no crackles , no wheezing, no stridor. cardiovascular - normal S1,S2 heard. no murmurs heard. peripheral pulses normal radial 2+, pedal 2+. capillary refill normal <2 secs. GI - soft abdomen without tenderness to palpation . no hepatospleenomegaly. Bowel sounds + Neurological - Patient is A/O X 3. Bilateral upper extremity strength 5/5, bilateral lower extremity strength 5/5, no facial droop, normal speech, no tremor, no sensory deficiets. laboratory and microbiology Laboratory Tests 03/18/24 11:56 03/18/24 05:28 Test 03/18/24 11:56 Range/Units Serum Glucose 131 H 74-106 mg/dL Problem List/Assessment/Plan Problem List/Assessment/Plan Assessment and plan # Chest pain ACS ruled out likely costochondritis - 12 lead ECG showed normal sinus rhythm without acute ischemic changes - troponins within normal limit - echocardiogram showed normal left ventricular ejection fraction 65%,, no significant valve pathology, normal chamber size indicating no intracardiac shunt. - patient given acetaminophen mild, ibuprofen moderate, morphine severe pain # ? Community-acquired pneumonia likely due to Gram +/- bacteria - patient is started on Rocephin 1 g IV daily - saturating above 95% on room air # lactic acidosis - Likely due to dehydration - Patient given IV fluids # history of seizure disorder Patient is started on home medication of divalproex 500 mg p.o. b.i.d. # history of hypertension On lisinopril 20 mg once daily # history of depression Started on fluoxetine 20 mg p.o. daily # history of a obstructive sleep apnea Patient on CPAP at night Goals of care discussed with the patient for over 20 minutes. Full code Plan discussed with Dr. Casiano Plan discussed with: Patient My Orders My Orders Orders - KATIE MITCHELL Procedure Category Date Status Time Atorvastatin (Lipitor) PHA 03/18/24 In Process 22:00 Ceftriaxone 1gm/50ml PHA 03/19/24 In Process D5w (Rocephin) 09:00 Date of Service: Mar 18, 2024 Billing Provider: ADITI COTO MD Common Visit Codes: [id number] INP/OBS CARE(HIGH) KATIE MITCHELL RESIDENT Mar 18, 2024 16:55 ADITI COTO MD Mar 18, 2024 22:35
[2024-03-18] MEDS: cefTRIAXone 1GM/50ML D5W 50 ML IV ONE (17:59)
[2024-03-18] MEDS ORDERED: IBUPROFEN 400 MG TAB PO PRN (19:45)
[2024-03-18] MEDS: ATORVASTATIN 20 MG TAB PO SCH (20:44)
[2024-03-18] MEDS: LACTATED RINGER'S 1,000 ML IV ONE (20:45)
[2024-03-19 01:00] VITALS: BP 110/60; PULSE 80; RESP 18; O2SAT 98
[2024-03-19 02:20] VITALS: PULSE 82; O2SAT 98
[2024-03-19 05:00] VITALS: BP 98/60; PULSE 78; RESP 20; TEMP 98.8; O2SAT 99
[2024-03-19 06:32] LABS: Basophils # (auto) 0 10 ^3/uL (0-0.2); Basophils % (auto) 0.2 % (0.0-2.0); Eosinophils # (auto) 0.1 10 ^3/uL (0-0.8); Eosinophils % (auto) 2.6 % (0.0-7.0); Hematocrit 34.1 % (41.0-53.0); Hemoglobin 11.6 g/dL (13.5-17.5); Lymphocytes # (auto) 1.1 10 ^3/uL (0.4-5.4); Lymphocytes % (auto) 26.1 % (10.0-50.0); Mean Corpuscular Hemoglobin 29.7 pg (28.0-32.0); Mean Corpuscular Hgb Conc. 34.1 g/dL (32.0-36.0); Mean Corpuscular Volume 87.1 fL (80.0-100.0); Monocytes # (auto) 0.4 10 ^3/uL (0-1.3); Monocytes % (auto) 8.8 % (0.0-12.0); Neutrophils # (auto) 2.7 10 ^3/uL (1.6-8.6); Neutrophils % (auto) 62.3 % (37.0-80.0); Nucleated Red Blood Cells % 0.1 %; Platelet Count (auto) 170 10^3/uL (140-450); Red Blood Cells 3.92 10^6/uL (4.5-5.90); Red Cell Distribution Width 15.3 % (11.8-14.3); White Blood Cell 4.3 10^3/uL (4.4-10.8)
[2024-03-19 06:41] LABS: Anion Gap 8 (5-15); Calcium 9.1 mg/dL (8.7-10.4); Carbon Dioxide 29 mmol/L (20-31); Chloride 104 mmol/L (98-107); Potassium 4.1 mmol/L (3.5-5.1); Sodium 141 mmol/L (136-145)
[2024-03-19 06:47] LABS: BUN/Creatinine Ratio 12.8 (10.0-20.0); Blood Urea Nitrogen 11 mg/dL (9-23)
[2024-03-19 06:51] LABS: Glucose 245 mg/dL (74-106)
[2024-03-19 07:45] VITALS: PULSE 75
[2024-03-19 08:27] VITALS: O2SAT 96
[2024-03-19 08:35] VITALS: BP 117/62; PULSE 72; RESP 17; O2SAT 95
[2024-03-19] MEDS: cefTRIAXone 1GM/50ML D5W 50 ML IV SCH (09:00)
--- NOTE | 2024-03-19 21:03 | DVHDSRES ---
Discharge Summary Date of Admission Resident Creating Document: KATIE MITCHELL RESIDENT Mar 17, 2024 at 07:04 Date of Discharge: Mar 19, 2024 Admitting Diagnosis Chest pain rule out ACS Hypertension Autism History of seizures Wounds: no wounds Labs/Diagnostic Data: Laboratory Results Test 03/19/24 05:34 03/18/24 11:56 03/17/24 20:20 03/17/24 04:25 White Blood Count 4.3 10^3/uL (4.4-10.8) Red Blood Count 3.92 10^6/uL (4.5-5.90) Hemoglobin 11.6 g/dL (13.5-17.5) Hematocrit 34.1 % (41.0-53.0) Mean Corpuscular Volume 87.1 fL (80.0-100.0) Mean Corpuscular Hemoglobin 29.7 pg (28.0-32.0) Mean Corpuscular Hemoglobin Concent 34.1 g/dL (32.0-36.0) Red Cell Distribution Width 15.3 % (11.8-14.3) Platelet Count 170 10^3/uL (140-450) Mean Platelet Volume 7.3 fL (6.9-10.8) Neutrophils (%) (Auto) 62.3 % (37.0-80.0) Lymphocytes (%) (Auto) 26.1 % (10.0-50.0) Monocytes (%) (Auto) 8.8 % (0.0-12.0) Eosinophils (%) (Auto) 2.6 % (0.0-7.0) Basophils (%) (Auto) 0.2 % (0.0-2.0) Neutrophils # (Auto) 2.7 10 ^3/uL (1.6-8.6) Lymphocytes # (Auto) 1.1 10 ^3/uL (0.4-5.4) Monocytes # (Auto) 0.4 10 ^3/uL (0-1.3) Eosinophils # (Auto) 0.1 10 ^3/uL (0-0.8) Basophils # (Auto) 0 10 ^3/uL (0-0.2) Nucleated Red Blood Cells 0.1 % Sodium Level 141 mmol/L (136-145) Potassium Level 4.1 mmol/L (3.5-5.1) Chloride Level 104 mmol/L (98-107) Carbon Dioxide Level 29 mmol/L (20-31) Anion Gap 8 (5-15) Blood Urea Nitrogen 11 mg/dL (9-23) Creatinine 0.86 mg/dL (0.700-1.30) Glomerular Filtration Rate Calc 112 mL/min (>90) BUN/Creatinine Ratio 12.8 (10.0-20.0) Serum Glucose 245 mg/dL (74-106) Calcium Level 9.1 mg/dL (8.7-10.4) Valproic Acid Level 46.7 ug/mL (50-100) Total Bilirubin 0.2 mg/dL (0.2-1.0) Aspartate Amino Transferase (AST) 10 U/L (13-40) Alanine Aminotransferase (ALT) 12 U/L (7-40) Alkaline Phosphatase 65 U/L (46-116) Total Protein 5.9 g/dL (5.7-8.2) Albumin 3.4 g/dL (3.2-4.8) Triglycerides Level 241 mg/dL (< 150) Cholesterol Level 155 mg/dL (< 200) LDL Cholesterol 92 mg/dL (< 100) HDL Cholesterol 31 mg/dL (40-59) Influenza Type A Antigen Negative (Negative) Influenza Type B Antigen Negative (Negative) SARS-CoV-2 Antigen (Rapid) Negative (NEGATIVE) Urine Color Yellow (Yellow) Urine Clarity Clear (Clear) Urine pH 6.0 (5.0-9.0) Urine Specific [place] 1.036 (1.001-1.035) Urine Protein Trace (Negative) Urine Ketones 1+ (Negative) Urine Blood Trace /uL (Negative) Urine Nitrite Negative (Negative) Urine Bilirubin Negative (Negative) Urine Urobilinogen 2 mg/dL (Negative) Urine Leukocyte Esterase Negative /uL (Negative) Urine RBC 13 /hpf (0 - 3) Urine WBC 2 /hpf (0 - 3) Urine Squamous Epithelial Cells Few /hpf (<5) Urine Bacteria None seen /hpf (None Seen) Urine Mucus Few (None Seen) Urine Glucose 4+ mg/dL (Normal) Test 03/17/24 01:55 03/16/24 23:59 Lactic Acid Level 1.6 mmol/L (0.4-2.0) Troponin I High Sensitivity < 3 ng/L (</=54) B-Type Natriuretic Peptide 9.26 pg/mL (0-100) Other Laboratory Tests 03/19/24 05:34 Brief Hx & Hospital Course: Patient is a 43-year-old male with a past medical history of seizure disorder, hypothyroidism, autism, hypertension, dyslipidemia, , depression, morbid obesity, ?atrial septal defec, obstructive sleep apnea presented to the ED with a chief complaint of chest pain for 1 day prior to admission. Patient reported that he felt substernal , pressure-like and sometimes sharp chest pain radiated with a left arm which happened on sitting with worsening on taking deep breaths and change of position, associated with the shortness of breath patient denied palpitations, nausea, vomiting, abdominal pain, headache, fever, chills. On arrival to the ED 12 lead ECG was done which revealed sinus rhythm without any evidence of acute ischemia, troponin levels were within normal limits. Chest x- ray showed no acute cardiopulmonary disease. On reviewing the labs patient had elevated lactic acid at 2.3 and triglyceride elevated at 240 mg/dL. Cardiology were consulted and an echocardiogram was done which showed normal LVEF 65%, no significant valve pathology was noted, normal chamber size indicated absence of intracardiac shunting. Cardiology recommended ruling out noncardiac causes of chest pain. Patient reported that he was diagnosed with a obstructive sleep apnea and has trouble sleeping at night with nighttime awakenings occasionally. During the hospital stay patient was given CPAP machine at night which helped him sleep better at patient reported feeling better the next morning. Patient is recommended to be worked up for obstructive sleep apnea in the outpatient clinic with the primary care provider. Patient is being discharged in stable condition to a long term and is advised to continue on his home medication and follow up with the primary care provider in 1 week. Patient denied chest pain, shortness of breath, dizziness at the time discharge. Consults/Reason for consult Cardiology consultation for chest pain, history of ASD Operations or Procedures Echocardiogram was done which was reported as normal left ventricular systolic function with estimated ejection fraction 65%. No dynamic EKG changes was noted. No significant valve pathology was noted. Normal chamber size indicating absence of intracardiac shunting. Condition at Discharge: Good Final Diagnosis/Problems List # Chest pain ACS ruled out likely costochondritis # H/o ASD, ECHO showed no evidemce of intracardiac shunting # ?Community-acquired pneumonia likely due to Gram +/- bacteria # lactic acidosis, resolved # history of seizure disorder # history of hypertension # history of depression # history of a obstructive sleep apnea Discharge Disposition: Home Discharge Instruct/Medications Diet: Regular Activity: No Restrictions, As Tolerated Activity comment: adivised to sleep in right or left lateral position until the patient gets the CPAP machine Follow Up/Referral: Follow up with the PCP in one week for further workup of ZENOBIA and need for CPAP machine at night. Follow up in the D/C clinic in one week Medications: continue home meds Discharge Statement: "Patient was advised to return to the ER or call 911 if any headaches, dizziness, shortness of breath, chest pain, abdominal pain, bleeding, fevers, or worsening of medical condition. Patient was counseled about treatment plan, medications, possible side effects, patientverbalized understanding. All questions were answered to the best of my ability. This discharge took greater then 30 minutes in planning, reviewing documentation, counseling the patient, and discussing with other team members." ASSESSMENT ASSESSMENT Assessment # Chest pain ACS ruled out likely costochondritis # H/o ASD, ECHO showed no evidemce of intracardiac shunting # ?Community-acquired pneumonia likely due to Gram +/- bacteria # lactic acidosis, resolved # history of seizure disorder # history of hypertension # history of depression # history of a obstructive sleep apnea Date of Service: Mar 19, 2024 Billing Provider: ADITI COTO MD Common Visit Codes: [id number] DISCH DAY >30min KATIE MITCHELL RESIDENT Mar 19, 2024 21:02 ADITI COTO MD Mar 20, 2024 09:07
== END 2024-03-19 16:20 | disposition home or self-care (01) | DRG 205 ==
LOC: EDBD 22:48 → ER 22:48 → TELE 03-17 07:04 → TELE-WESTW 03-17 20:53
PROVIDERS: ADMIT Student in an Organized Health Care Education/Training Program; ATTEND Emergency Medicine
PROC: 5A09357 Assistance with Respiratory Ventilation, Less than 24 Consecutive Hours, Continuous Positive Airway Pressure (ICD-10-PCS; principal; 2024-03-18)
DX: M94.0 Chondrocostal junction syndrome [Tietze] (principal); J15.69 Pneumonia due to other Gram-negative bacteria; J15.9 Unspecified bacterial pneumonia; F84.0 Autistic disorder; Z68.43 Body mass index [BMI] 50.0-59.9, adult; Q21.10 Atrial septal defect, unspecified; I10 Essential (primary) hypertension; G80.9 Cerebral palsy, unspecified; E66.01 Morbid (severe) obesity due to excess calories; E03.9 Hypothyroidism, unspecified; Z20.822 Contact with and (suspected) exposure to COVID-19; F32.A Depression, unspecified; G47.33 Obstructive sleep apnea (adult) (pediatric); G40.909 Epilepsy, unspecified, not intractable, without status epilepticus; Z88.3 Allergy status to other anti-infective agents
CPT/HCPCS: 36415; 71045; 80048; 80053; 80061; 80164; 81001; 83605; 83880; 84484; 85025; 87426; 87804; 93005; 93306; 94640; 94660; G0378; J2405

== ENCOUNTER 2024-05-03 23:38 | Emergency (ER) | payer OTHER, MEDICAID ==
[~2024-05-03] VITALS: Ht 180.3 cm; Wt 113.6 kg
[~2024-05-03 23:38] MED LIST changes: +CLON0.5T4 PO; -DEXAMETHASONE SOD PHOS 10MG/1ML VIAL INJ ONE; +DIVA1TAB58 PO; +DIVA1TAB59 PO; -HYDROmorphone HCL 2 MG/ML VL IV PRN; -KETOROLAC TROMETH 30 MG/ML 1ML VIAL IV ONE; -LABETALOL HCL 5 MG/ML 4ML SYRINGE IV PRN; -METOCLOPRAMIDE HCL 5MG/ml INJ 2ml VIAL IV ONE; -MIDAZOLAM HCL 1MG/1ML-2 ML VIAL IV PRN; -MIDAZOLAM HCL 1MG/1ML-2 ML VIAL ONE; -MORPHINE SULF INJ 2 MG/ML SYRINGE 1ML IV PRN; -ONDANSETRON HCL 4 MG/2 ML VIAL IV ONE; -PROPOFOL 10 MG/ML 20 ML IV ONE; -ceFAZolin 1GM/50ML D5W 50 ML IV ONE; -ePHEDrine SULFATE 50 MG/ML AMP IV PRN; -fentaNYL CITRATE 100 MCG/2 ML VL ONE
--- NOTE | 2024-05-04 00:16 | ED.PDOC ---
History of Present Illness HPI Comments 43 y/o M, with a past medical history of seizure disorder, hypothyroidism, autism, hypertension, dyslipidemia, depression, morbid obesity, and obstructive sleep apnea, is BIBA from [facility] for c/o foreign body, today. Per EMS report, patient endorses on sticking a "fork" in his penis, earlier, this evening. Patient is commented to have additional relevant Hx of putting foreign objects in his "penis" in the past and frequent ED visits. At time of assessment, patient comments on having mild penile pain, currently, with no bleeding, discharge, or additional associated symptoms or modifiers, currently Chief Complaint: Foreign Body Time Seen by MD: 23:45 Reviewed Notes: Nurses Notes, Wildlife Control Operator Notes, Medications, Allergies Allergies: Coded Allergies: Paliperidone (Verified Allergy, Severe, 12/11/16) Risperidone (Verified Allergy, Severe, 12/11/16) Ondansetron (Unverified Allergy, Unknown, NAUSEA, 10/29/17) Sulfamethoxazole w/Trimethoprim (Verified Allergy, Unknown, 12/11/16) Home Meds Reported Medications Divalproex Sodium (Divalproex Sodium Dr) 500 Mg Tab, 1 TAB PO TID 03/17/24 Divalproex Sodium (Divalproex Sodium Dr) 250 Mg Tab, TAB PO 03/17/24 Clonazepam (Clonazepam) 0.5 Mg Tab, TAB PO 03/17/24 Divalproex Sodium (Divalproex Sodium Dr) 500 Mg Tab, 1 TAB PO TID 03/17/24 Divalproex Sodium (Divalproex Sodium Dr) 250 Mg Tab, TAB PO 03/17/24 Clonazepam (Clonazepam) 0.5 Mg Tab, TAB PO 03/17/24 Information Source: Patient, Emergency Med Personnel Mode of Arrival: EMS Severity: Moderate Timing: Hours Duration: Since onset Prehospital treatment: 12 Lead EKG, Hydrology Teacher Past Medical History PAST MEDICAL HISTORY: Depression, High Lipids, HTN, Seizures, Thyroid Past Medical History (Other): ASD, morbid obesity, PNA, sleep apnea Surgical History: Denies all surgeries Family History Family History: Unknown Social History Smoker: Non-Smoker Alcohol: Denies ETOH Use Drugs: Denies Drug Use Lives In: Home Genitourinary: reports: pain (penile pain), others (foreign body in penis) All Other Systems: Reviewed and Negative (negative unless otherwise stated above or in HPI) Physical Exam General Appearance: No Apparent Distress, Obese HEENT: Normal ENT Inspection, Pharynx Normal, TMs Normal Neck: Full Range of Motion, Non-Tender, Normal, Normal Inspection Respiratory: Chest Non-Tender, Lungs Clear, No Accessory Muscle Use, No Respiratory Distress, Normal Breath Sounds Cardiovascular: No Edema, No JVD, No Murmur, No Gallop, Normal Peripheral Pulses, Regular Rate/Rhythm Breast Exam: Deferred Gastrointestinal: No Organomegaly, Non Tender, No Pulsatile Mass, Normal Bowel Sounds, Soft Genitalia: Deferred Pelvic: Deferred Rectal: Deferred Extremities: No calf tenderness, Normal capillary refill, Normal inspection, Normal range of motion, Non-tender, No pedal edema Musculoskeletal : Apperance: Normal Neurologic: Alert, audiology assistant II-XII nml as Tested, No Motor Deficits, Normal Affect, Normal Mood, No Sensory Deficits Cerebellar Function: Normal Reflexes: Normal Skin: Dry, Normal Color, Warm Lymphatic: No Adenopathy Was a procedure done? Was a procedure done?: No Differential Dx Considerations may include: foreign body X-Ray, Labs, Meds, VS Vital Signs Date Time Temp Pulse Resp B/P (MAP) Pulse Ox O2 Delivery O2 Flow Rate FiO2 05/04/24 03:06 98.2 81 18 149/99 (116) 98 98.2 05/03/24 23:45 98.5 92 18 144/96 (112) 99 Patient is a frequent Flyer to the emergency room. I have examined this patient several times the last time he was exam was [facility] with the same exact symptoms. The patient has a have a placing objects inside his penis. He is supposed to follow up with Urology Time of 1ST Reevaluation: 00:15 Reevaluation 1ST: Unchanged Patient Education/Counseling: Diagnosis, Treatment Family Education/Counseling: No Family Present Departure 1 Departure Time of Disposition: 03:49 Impression: Primary Impression: Foreign body in penis Disposition: HOME / SELF CARE / HOMELESS Condition: Stable Additional Instructions: Reassessed patient, vital signs stable. Denies any new symptoms. Patient is able to tolerate PO and ambulate/be mobile at their baseline without concern. Risks and benefits of all medications given or prescribed, if any, discussed. All lab work, imaging and diagnostic studies were reviewed by me. The patient was counseled extensively on my clinical impression, diagnosis, expected course of the disease, and plan, including their follow-up care. Will discharge patient. Patient instructed to follow up with Primary Care Physician within 24-48 hours. Strict return precautions given for further exacerbation of symptoms or for new symptoms. The patient was given the opportunity to ask questions and all questions were answered by myself and the nursing/tech staff. Patient is in agreement with the care plan. The patient verbally expressed understanding of the discharge instructions, including the reasons to return to the Emergency Department. Follow up with Urology. Discharged With: Self Critical Care Note Critical Care Time?: No Stability Stability form required: No Heart Score Heart Score: Heart Score Response (Comments) Value History N/A 0 EKG N/A 0 Age N/A 0 Risk Factors N/A 0 Troponin N/A 0 Total 0 I personally scribed for NICOLE BOB MD ([email or web address]) on 05/04/24 at 00:16. Electronically submitted by Denzel Robles ([email or web address]). NICOLE BOB MD May 04, 2024 00:16
[2024-05-04 03:06] VITALS: BP 149/99; TEMP 98.2
[2024-05-04 04:22] VITALS: PULSE 96; RESP 18; O2SAT 96
[2024-05-04 14:48] LABS: Urine Bacteria None Seen /hpf (None Seen)
[2024-05-04 15:07] LABS: Urine Blood 3+ /uL (Negative); Urine Clarity Clear (Clear); Urine Color Yellow (Yellow); Urine Mucus FEW (None Seen); Urine Protein, UAD 1+ (Negative); Urine Squamous Epithelial Cell FEW /hpf (<5); Urine Urobilinogen 2 mg/dL (Negative); Urine WBC 17 /hpf (0 - 3)
== END 2024-05-04 04:23 | disposition home or self-care (01) ==
LOC: EDBD 23:38 → ER 23:38
DX: T19.4XXA Foreign body in penis, initial encounter (principal); I10 Essential (primary) hypertension; E03.9 Hypothyroidism, unspecified; E78.5 Hyperlipidemia, unspecified; Z88.1 Allergy status to other antibiotic agents; Z88.2 Allergy status to sulfonamides; Z88.8 Allergy status to other drugs, medicaments and biological substances; Z79.899 Other long term (current) drug therapy; X58.XXXA Exposure to other specified factors, initial encounter; Y93.89 Activity, other specified; Y92.89 Other specified places as the place of occurrence of the external cause; Y99.8 Other external cause status
CPT/HCPCS: 81001

== ENCOUNTER 2024-06-05 10:24 | Inpatient (IN) | payer OTHER, MEDICAID ==
[~2024-06-05] VITALS: Ht 165.1 cm; Wt 166.1 kg
--- NOTE | 2024-06-05 10:36 | ED.PDOC ---
GI ASSESSMENT HPI Comments 43 year old male ANA presents to the ED with chief complaint of abdominal pain. Patient reports that he has been experiencing LLQ abdominal pain since yesterday with associated symptoms of chills, nausea, vomiting, and noticing some blood in his diaper earlier today. Patient relays that he believes he had been diagnosed in the past with diverticulitis. EMS states that patient has history of developmental delays and can be aggressive at times according to his family. Patient denies any diarrhea, fever, SOB, chest pain, melena, or hematemesis. Time Seen by MD: 10:33 Reviewed Notes: Nurses Notes, Triage Registered Nurse Notes, Medications, Allergies Allergies: Coded Allergies: Paliperidone (Verified Allergy, Severe, 12/11/16) Risperidone (Verified Allergy, Severe, 12/11/16) Ondansetron (Unverified Allergy, Unknown, NAUSEA, 10/29/17) Sulfamethoxazole w/Trimethoprim (Verified Allergy, Unknown, 12/11/16) Home Meds Reported Medications Quetiapine Fumerate (QUETIAPINE FUMARATE) 400 Mg Tab, 1 06/05/24 Fluticasone Propionate (Nasal) (Fluticasone Propionate) 50 Mcg/Act Spr, ANNETTA 06/05/24 Tamsulosin Hcl (Tamsulosin Hcl) 0.4 Mg Cap 06/05/24 Hydroxyzine Hcl (Hydroxyzine Hcl) 50 Mg Tab, 1 06/05/24 Terbinafine Hcl (Terbinafine Hcl) 250 Mg Tab, 1 DAILY 06/05/24 Olanzapine (OLANZAPINE) 10 Mg Tab, 1 06/05/24 Furosemide (Furosemide) 20 Mg Tab, 1 DAILY 06/05/24 Divalproex Sodium (Divalproex Sodium Dr) 500 Mg Tab, 1 TAB PO TID 03/17/24 Divalproex Sodium (Divalproex Sodium Dr) 250 Mg Tab, TAB PO 03/17/24 Clonazepam (Clonazepam) 0.5 Mg Tab, TAB PO 03/17/24 Divalproex Sodium (Divalproex Sodium Dr) 500 Mg Tab, 1 TAB PO TID 03/17/24 Divalproex Sodium (Divalproex Sodium Dr) 250 Mg Tab, TAB PO 03/17/24 Clonazepam (Clonazepam) 0.5 Mg Tab, TAB PO 03/17/24 Information Source: Patient, Emergency Med Personnel Mode of Arrival: EMS Timing: Days Duration: Since onset Prehospital treatment: None Quality: Sharp Vomitus: Watery Stool: Normal Severity: Moderate Recent: None Recent Hx of: None Pain Location: LLQ Modifying Factors: Nothing Associated sign and symptoms: Nausea, Vomiting, Abdominal Pain, Blood in Stool Past Medical History PAST MEDICAL HISTORY: Depression, High Lipids, HTN, Seizures, Thyroid Past Medical History (Other): Developmental delays Surgical History (Other): Groin surgery Family History Family History: Unknown Social History Smoker: Non-Smoker Alcohol: Denies ETOH Use Drugs: Denies Drug Use Lives In: Home Constitutional: reports: chills; denies: diaphoresis, fatigue, fever, malaise, sweats, weakness, others EENTM: denies: blurred vision, double vision, ear bleeding, ear discharge, ear drainage, ear pain, ear ringing, eye pain, eye redness, hearing loss, mouth pain, mouth swelling, nasal discharge, nose bleeding, nose congestion, nose pain, photophobia, tearing, throat pain, throat swelling, voice changes, others Respiratory: denies: cough, hemoptysis, orthopnea, SOB at rest, shortness of breath, SOB with excertion, stridor, wheezing, others Cardiovascular: denies: chest pain, dizzy spells, diaphoresis, Dyspnea on exertion, edema, irregular heart beat, left arm pain, lightheadedness, palpitations, PND, syncope, others Gastrointestinal: reports: abdominal pain, blood streaked bowels, nausea, vomiting; denies: abdomen distended, constipated, diarrhea, dysphagia, difficulty swallowing, hematemesis, melena, poor appetite, poor fluid intake, rectal bleeding, rectal pain, others Genitourinary: denies: burning, dysuria, flank pain, frequency, hematuria, incontinence, penile discharge, penile sore, pain, testicle pain, testicle swelling, urgency, others Neurological: denies: dizziness, fainting, headache, left sided numbness, left sided weakness, numbness, paresthesia, pre-existing deficit, right sided numbness, right sided weakness, seizure, speech problems, tingling, tremors, w eakness, others Musculoskeletal: denies: back pain, gout, joint pain, joint swelling, muscle pain, muscle stiffness, neck pain, others Integumetry: denies: bruises, change in color, change in hair/nails, dryness, laceration, lesions, lumps, rash, wounds, others Allergic/Immunocompromised: denies: Difficulty Healing, Frequent Infections, Hives, Itching, others Hematologic/Lymphatic: denies: anemia, blood clots, easy bleeding, easy bruising, swollen glands, others Endocrine: denies: excessive hunger, excessive sweating, excessive thirst, excessive urination, flushing, intolerance to cold, intolerance to heat, unexplained weight gain, unexplained weight loss, others Psychiatric: denies: anxiety, bipolar disorder, depression, hopeless, panic disorder, schizophrenia, sleepless, suicidal, others All Other Systems: Reviewed and Negative Physical Exam General Appearance: Moderate Distress, Obese HEENT: Normal ENT Inspection, Pharynx Normal, TMs Normal Neck: Full Range of Motion, Non-Tender, Normal, Normal Inspection Respiratory: Chest Non-Tender, Lungs Clear, No Accessory Muscle Use, No Respiratory Distress, Normal Breath Sounds Cardiovascular: No Edema, No JVD, No Murmur, No Gallop, Normal Peripheral Pulses, Regular Rate/Rhythm Breast Exam: Deferred Gastrointestinal: LLQ, No Organomegaly, No Pulsatile Mass, Normal Bowel Sounds, Soft, Tenderness Genitalia: Deferred Pelvic: Deferred Rectal: Deferred Extremities: No calf tenderness, Normal capillary refill, No pedal edema Musculoskeletal : Apperance: Normal Neurologic: Alert, chief medical director II-XII nml as Tested, Motor Weakness, Normal Affect, Normal Mood, No Sensory Deficits Cerebellar Function: Normal Reflexes: Normal Skin: Dry, Normal Color, Warm Lymphatic: No Adenopathy Was a procedure done? Was a procedure done?: No GI differential Dx Differential Diagnosis: Diverticular disease, Gastritis/PUD, Gastroenteritis X-Ray, Labs, Meds, VS Vital Signs Date Time Temp Pulse Resp B/P (MAP) Pulse Ox O2 Delivery O2 Flow Rate FiO2 06/05/24 11:59 91 22 98 Room Air 06/05/24 11:59 98.4 92 22 140/94 (109) 95 98.4 06/05/24 10:38 98.4 85 16 132/92 (105) 96 Lab Test 06/05/24 11:56 06/05/24 11:50 Range/Units POC Glucose 133 H 70-106 mg/dl White Blood Count 4.8 4.4-10.8 10^3/uL Red Blood Count 4.75 4.5-5.90 10^6/uL Hemoglobin 13.5 13.5-17.5 g/dL Hematocrit 40.4 L 41.0-53.0 % Mean Corpuscular Volume 85.1 80.0-100.0 fL Mean Corpuscular Hemoglobin 28.3 28.0-32.0 pg Mean Corpuscular Hemoglobin Concent 33.3 32.0-36.0 g/dL Red Cell Distribution Width 15.9 H 11.8-14.3 % Platelet Count 208 140-450 10^3/uL Mean Platelet Volume 7.2 6.9-10.8 fL Neutrophils (%) (Auto) 57.7 37.0-80.0 % Lymphocytes (%) (Auto) 27.8 10.0-50.0 % Monocytes (%) (Auto) 12.0 0.0-12.0 % Eosinophils (%) (Auto) 2.2 0.0-7.0 % Basophils (%) (Auto) 0.3 0.0-2.0 % Neutrophils # (Auto) 2.8 1.6-8.6 10 ^3/uL Lymphocytes # (Auto) 1.3 0.4-5.4 10 ^3/uL Monocytes # (Auto) 0.6 0-1.3 10 ^3/uL Eosinophils # (Auto) 0.1 0-0.8 10 ^3/uL Basophils # (Auto) 0 0-0.2 10 ^3/uL Nucleated Red Blood Cells 0.1 % Sodium Level 140 136-145 mmol/L Potassium Level 4.0 3.5-5.1 mmol/L Chloride Level 103 98-107 mmol/L Carbon Dioxide Level 29 20-31 mmol/L Anion Gap 8 5-15 Blood Urea Nitrogen 11 9-23 mg/dL Creatinine 0.71 0.700-1.30 mg/dL Glomerular Filtration Rate Calc 118 >90 mL/min BUN/Creatinine Ratio 15.5 10.0-20.0 Serum Glucose 130 H 74-106 mg/dL Calcium Level 9.9 8.7-10.4 mg/dL Total Bilirubin 0.2 0.2-1.0 mg/dL Aspartate Amino Transferase (AST) 33 13-40 U/L Alanine Aminotransferase (ALT) 43 H 7-40 U/L Alkaline Phosphatase 90 46-116 U/L Total Protein 7.4 5.7-8.2 g/dL Albumin 4.2 3.2-4.8 g/dL Lipase 30 12-53 U/L CT Abd/Pel indicates: FINDINGS: Evaluation of the abdomen and pelvis is limited without intravenous contrast. There is diffuse fatty infiltration of the liver. The gallbladder, pancreas, kidneys, adrenal glands, and spleen appear within normal limits. There is no gross evidence of abdominal lymphadenopathy. There is no free fluid or free air. The stomach grossly appears unremarkable. The small and large bowel loops demonstrate normal caliber and appear within normal limits. There is a normal- appearing appendix seen in the right lower quadrant abdomen.. The abdominal aorta and IVC appear within normal limits. The bladder appears unremarkable for the degree of distention. Pelvic organ appears within normal limits. There is no gross evidence of a pelvic mass. There is no free fluid collection. Lung bases are clear. There is no acute osseous abnormality. IMPRESSION: 1. There is no acute process in the abdomen and pelvis. 2. Hepatic steatosis. The patient is being admitted at this time. The patient continues to have significant abdominal pain as well as rectal bleeding The patient's CBC and chemistry panel are within normal limits The patient was being admitted Images Reviewed?: Images reviewed and evaluated by me Time of 1ST Reevaluation: 14:10 Reevaluation 1ST: Unchanged Patient Education/Counseling: Diagnosis, Treatment Family Education/Counseling: No Family Present Additional Information - I reviewed the following notes from patient's past medical encounters: 05/03/24 for foreign object - The following tests were ordered, and results were reviewed by me: (Labs, X- Ray, EKG): UA, Lipase, CBC, CMP, CT Abd/Pel - Additional information was gathered from interviewing the following independent Historian: (Family, Other Providers, EMT): EMS - I reviewed and agreed with the following test results read by other provider: (X-ray, CT, US): CT Abd/Pel - I discussed treatments and results with medical personnel. Departure 1 Departure Time of Disposition: 14:06 Impression: Primary Impression: Intractable abdominal pain Additional Impression: Lower GI bleed Disposition: ADMITTED INPATIENT Admit to: Med Surg Condition: Fair Critical Care Note Critical Care Time?: No Stability Stability form required: Yes Unstable for transfer: Telemetry monitoring (Telemetry monitoring required), ED Physician Assesment (Clinical assesment) Heart Score Heart Score: Heart Score Response (Comments) Value History N/A 0 EKG N/A 0 Age N/A 0 Risk Factors N/A 0 Troponin N/A 0 Total 0 I personally scribed for JOHN SNELL MD ([email or web address]) on 06/05/24 at 10:36. Electronically submitted by Maurice Damian ([email or web address]). I personally scribed for JOHN SNELL MD ([email or web address]) on 06/05/24 at 11:01. Electronically submitted by Maurice Damian ([email or web address]). I personally scribed for JOHN SNELL MD ([email or web address]) on 06/05/24 at 11:12. Electronically submitted by Maurice Damian ([email or web address]). I personally scribed for JOHN SNELL MD ([email or web address]) on 06/05/24 at 11:12. Electronically submitted by Maurice Damian ([email or web address]). JOHN SNELL MD Jun 05, 2024 10:36
--- NOTE | 2024-06-05 11:06 | DVH ---
CT ABDOMEN AND PELVIS WITHOUT CONTRAST CLINICAL HISTORY: llq pain TECHNIQUE: Multiple contiguous axial images of the abdomen and pelvis without intravenous contrast. The images were reformatted degenerate coronal and sagittal reconstructions. All CT scans at this medical facility are performed using dose modulation techniques as appropriate t o a performed exam including the following:Automated exposure control was utilized; adjustment of the MA and/or KV according to patient size; and use of iterative reconstruction technique. Radiation Dose Information: CT Dose: CTDI volume is 25 mGy. Dose-length product is 1460 mGy*cm Comparison: None FINDINGS: Evaluation of the abdomen and pelvis is limited without intravenous contrast. There is diffuse fatty infiltration of the liver. The gallbladder, pancreas, kidneys, adrenal glan ds, and spleen appear within normal limits. There is no gross evidence of abdominal lymphadenopathy. There is no free fluid or free air. The stomach grossly appears unremarkable. The small and large bowel loops demonstrate normal caliber and appear within normal limits. There is a normal-appearing appendix seen in the right lower quadra nt abdomen.. The abdominal aorta and IVC appear within normal limits. The bladder appears unremarkable for the degree of distention. Pelvic organ appears within normal martinez its. There is no gross evidence of a pelvic mass. There is no free fluid collection. Lung bases are clear. There is no acute osseous abnormality. IMPRESSION: 1. There is no acute process in the abdomen and pelvis. 2. Hepatic steatosis. HS:Y
[2024-06-05 12:24] LABS: Albumin 4.2 g/dL (3.2-4.8); Alkaline Phosphatase 90 U/L (46-116); Anion Gap 8 (5-15); Aspartate Aminotransferase 33 U/L (13-40); BUN/Creatinine Ratio 15.5 (10.0-20.0); Blood Urea Nitrogen 11 mg/dL (9-23); Calcium 9.9 mg/dL (8.7-10.4); Carbon Dioxide 29 mmol/L (20-31); Chloride 103 mmol/L (98-107); Lipase 30 U/L (12-53); Sodium 140 mmol/L (136-145)
[2024-06-05 12:25] LABS: Total Protein 7.4 g/dL (5.7-8.2)
[2024-06-05 12:29] LABS: Alanine Aminotransferase 43 U/L (7-40); Bilirubin, Total 0.2 mg/dL (0.2-1.0); Glucose 130 mg/dL (74-106)
[2024-06-05 12:40] LABS: Basophils # (auto) 0 10 ^3/uL (0-0.2); Basophils % (auto) 0.3 % (0.0-2.0); Eosinophils # (auto) 0.1 10 ^3/uL (0-0.8); Eosinophils % (auto) 2.2 % (0.0-7.0); Hematocrit 40.4 % (41.0-53.0); Hemoglobin 13.5 g/dL (13.5-17.5); Lymphocytes # (auto) 1.3 10 ^3/uL (0.4-5.4); Lymphocytes % (auto) 27.8 % (10.0-50.0); Mean Corpuscular Hemoglobin 28.3 pg (28.0-32.0); Mean Corpuscular Hgb Conc. 33.3 g/dL (32.0-36.0); Mean Corpuscular Volume 85.1 fL (80.0-100.0); Monocytes # (auto) 0.6 10 ^3/uL (0-1.3); Neutrophils # (auto) 2.8 10 ^3/uL (1.6-8.6); Neutrophils % (auto) 57.7 % (37.0-80.0); Nucleated Red Blood Cells % 0.1 %; Platelet Count (auto) 208 10^3/uL (140-450); Red Blood Cells 4.75 10^6/uL (4.5-5.90); Red Cell Distribution Width 15.9 % (11.8-14.3); White Blood Cell 4.8 10^3/uL (4.4-10.8)
[2024-06-05] MEDS ORDERED: HYDROcodone-ACET 5/325MG TAB PO PRN (13:30)
[2024-06-05] MEDS ORDERED: MORPHINE SULFATE INJ 2 MG/ml SYRG IV PRN (13:30)
[2024-06-05] MEDS ORDERED: ACETAMINOPHEN 325 MG TAB PO PRN (13:30)
[2024-06-05] MEDS ORDERED: METOCLOPRAMIDE HCL 5MG/ml INJ 2ml VIAL IV PRN (13:30)
[2024-06-05] MEDS ORDERED: TAMS0.4C39 (14:04)
[2024-06-05] MEDS ORDERED: QUET400T13 (14:04)
[2024-06-05] MEDS ORDERED: HYDR50TA69 (14:04)
[2024-06-05] MEDS ORDERED: FLUT50SP NAS (14:04)
[2024-06-05] MEDS ORDERED: OLAN1TAB19 (14:04)
[2024-06-05] MEDS ORDERED: FURO20TA4 (14:04)
[2024-06-05] MEDS ORDERED: TERB250T92 (14:04)
[2024-06-05] MEDS ORDERED: ALBUTEROL SULF 2.5 MG/0.5ML(0.5%) NEB SOLN NEB PRN (14:15)
[2024-06-05] MEDS ORDERED: clonazePAM 0.5 MG TAB PO SCH (14:20)
--- NOTE | 2024-06-05 14:24 | DVHHP2 ---
History of Present Illness Reason for Visit: Abdominal pain History of Present Illness Jr Alston is a 43-year-old male with past medical history of hypertension, hyperlipidemia, seizures, hypothyroidism, autism, morbid obesity, cerebral palsy, cystoscopy who presents to the ED for abdominal pain, chills, nausea, vomiting, and blood in the diaper x1 day. Patient reports that he lives in a board and care and his abdominal pain just started today aching and burning 10/10 constant pain. Patient reports that he believes he ingested spoiled food which was cheese that was consumed last night. Patient denies any chest pain, shortness of breath, diarrhea, lightheadedness, weakness, dizziness, and fever. Patient reported that he had blood in his diaper but no stool with blood. 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: Seizure Endocrine: Hypothyroidism Past Medical History Morbid obesity Cerebral palsy Past Surgical History: Other (Cystoscopy) Family History: DM, Other (Dad with diabetes) Smoke: No ALCOHOL: none Drugs: None Lives: Other Domestic Violence: Neg Review of Systems Constitutional: Yes: Chills; No: Fever, Sweats, Weakness, Malaise, Other Eyes: No: Pain, Vision change, Conjunctivae inflammation, Eyelid inflammation, Other, Redness ENT: No: Ear pain, Ear discharge, Nose pain, Nose discharge, Nose congestion, Mouth pain, Mouth swelling, Throat pain, Throat swelling, Other Respiratory: No: Cough, Dry, Shortness of breath, SOB with excertion, Wheezing, Hemoptysis, Pleuritic Pain, Sputum, Wheezing, Other Cardiovascular: No: Chest Pain, Palpitations, Orthopnea, Paroxysmal Noc. Dy spnea, Edema, Lt Headedness, Other Gastrointestinal: Nausea, Vomiting, Abdominal Pain Genitourinary: No Dysuria, No Frequency, No Incontinence, No Hematuria, No Retention, No Other Musculoskeletal: No: other, neck pain, shoulder pain, arm pain, back pain, hand pain, leg pain, foot pain Skin: No: Rash, Lesions, Jaundice, Bruising, Other Neurological: No: Weakness, Numbness, Incoordination, Change in speech, Confusion, Seizures, Other Allergies: Coded Allergies: Paliperidone (Verified Allergy, Severe, 12/11/16) Risperidone (Verified Allergy, Severe, 12/11/16) Ondansetron (Unverified Allergy, Unknown, NAUSEA, 10/29/17) Sulfamethoxazole w/Trimethoprim (Verified Allergy, Unknown, 12/11/16) Medications Current Medications Medications Dose Ordered Sig/Savana Route Start Time Stop Time Status Last Admin Dose Admin Acetaminophen/ Hydrocodone Bitart 1 tab Q4HP PRN PO 06/05/24 13:30 UNV Acetaminophen 650 mg Q6HP PRN PO 06/05/24 13:30 UNV Morphine Sulfate 2 mg Q4HPRN PRN IV 06/05/24 13:30 UNV Metoclopramide HCl 5 mg Q6HPRN PRN IV 06/05/24 13:30 UNV Divalproex Sodium 250 mg TID PO 06/05/24 14:00 UNV Clonazepam 0.5 mg DAILY PO 06/06/24 10:00 UNV Albuterol 2.5 mg Q4HPRN PRN NEB 06/05/24 14:15 UNV Exam Vital Signs Vital Signs Date Time Temp Pulse Resp B/P (MAP) Pulse Ox O2 Delivery O2 Flow Rate FiO2 06/05/24 11:59 91 22 98 Room Air 06/05/24 11:59 98.4 140/94 (109) 98.4 General Appearance: Alert, Oriented X3, Cooperative, No acute distress HEENT: Atraumatic, PERRLA, EOMI, Mucous membr. moist/pink Respiratory: Clear to auscultation, Normal air movement Cardiovascular: Regular rate, Normal S1, Normal S2, No murmurs Abdominal: Normal bowel sounds, Soft, No hepatospenomegaly, No masses Extremities: No clubbing, No cyanosis, No edema, Normal pulses, No tenderness/swelling Skin: No rashes, No breakdown, No significant lesion Neuro: Normal gait, Normal speech, Strength at 5/5 X4 ext, Normal tone, Sensation intact Psych/Mental Status: Mental status NL Labs/Xrays Labs Test 06/05/24 11:56 06/05/24 11:50 Range/Units POC Glucose 133 H 70-106 mg/dl White Blood Count 4.8 4.4-10.8 10^3/uL Red Blood Count 4.75 4.5-5.90 10^6/uL Hemoglobin 13.5 13.5-17.5 g/dL Hematocrit 40.4 L 41.0-53.0 % Mean Corpuscular Volume 85.1 80.0-100.0 fL Mean Corpuscular Hemoglobin 28.3 28.0-32.0 pg Mean Corpuscular Hemoglobin Concent 33.3 32.0-36.0 g/dL Red Cell Distribution Width 15.9 H 11.8-14.3 % Platelet Count 208 140-450 10^3/uL Mean Platelet Volume 7.2 6.9-10.8 fL Neutrophils (%) (Auto) 57.7 37.0-80.0 % Lymphocytes (%) (Auto) 27.8 10.0-50.0 % Monocytes (%) (Auto) 12.0 0.0-12.0 % Eosinophils (%) (Auto) 2.2 0.0-7.0 % Basophils (%) (Auto) 0.3 0.0-2.0 % Neutrophils # (Auto) 2.8 1.6-8.6 10 ^3/uL Lymphocytes # (Auto) 1.3 0.4-5.4 10 ^3/uL Monocytes # (Auto) 0.6 0-1.3 10 ^3/uL Eosinophils # (Auto) 0.1 0-0.8 10 ^3/uL Basophils # (Auto) 0 0-0.2 10 ^3/uL Nucleated Red Blood Cells 0.1 % Sodium Level 140 136-145 mmol/L Potassium Level 4.0 3.5-5.1 mmol/L Chloride Level 103 98-107 mmol/L Carbon Dioxide Level 29 20-31 mmol/L Anion Gap 8 5-15 Blood Urea Nitrogen 11 9-23 mg/dL Creatinine 0.71 0.700-1.30 mg/dL Glomerular Filtration Rate Calc 118 >90 mL/min BUN/Creatinine Ratio 15.5 10.0-20.0 Serum Glucose 130 H 74-106 mg/dL Calcium Level 9.9 8.7-10.4 mg/dL Total Bilirubin 0.2 0.2-1.0 mg/dL Aspartate Amino Transferase (AST) 33 13-40 U/L Alanine Aminotransferase (ALT) 43 H 7-40 U/L Alkaline Phosphatase 90 46-116 U/L Total Protein 7.4 5.7-8.2 g/dL Albumin 4.2 3.2-4.8 g/dL Lipase 30 12-53 U/L CT ABDOMEN AND PELVIS WITHOUT CONTRAST CLINICAL HISTORY: llq pain TECHNIQUE: Multiple contiguous axial images of the abdomen and pelvis without intravenous contrast. The images were reformatted degenerate coronal and sagittal reconstructions. All CT scans at this medical facility are performed using dose modulation techniques as appropriate to a performed exam including the following:Automated exposure control was utilized; adjustment of the MA and/or KV according to patient size; and use of iterative reconstruction technique. Radiation Dose Information: CT Dose: CTDI volume is 25 mGy. Dose-length product is 1460 mGy*cm Comparison: None FINDINGS: Evaluation of the abdomen and pelvis is limited without intravenous contrast. There is diffuse fatty infiltration of the liver. The gallbladder, pancreas, kidneys, adrenal glands, and spleen appear within normal limits. There is no gross evidence of abdominal lymphadenopathy. There is no free fluid or free air. The stomach grossly appears unremarkable. The small and large bowel loops demonstrate normal caliber and appear within normal limits. There is a normal- appearing appendix seen in the right lower quadrant abdomen.. The abdominal aorta and IVC appear within normal limits. The bladder appears unremarkable for the degree of distention. Pelvic organ appears within normal limits. There is no gross evidence of a pelvic mass. There is no free fluid collection. Lung bases are clear. There is no acute osseous abnormality. IMPRESSION: 1. There is no acute process in the abdomen and pelvis. 2. Hepatic steatosis. Assessment/Plan Assessment/Plan Assessment/Plan: Intractable abdominal pain likely due to gastroenteritis Hepatic steatosis Labs Type and screen CT abdomen and pelvis noted UA Lipase Stool occult A.m. labs Antiemetics Pain management Last echo on 03/22/2024 EF 55% Chronic hypertension Continue home medications Chronic hyperlipidemia continue home medication History of seizure Continue home medication History of hypothyroidism Continue home medications History of autism Follow up outpatient with PCP History of cerebral palsy Follow up outpatient with PCP Morbid obesity Counseled patient on lifestyle modifications, diet, and exercise FEN/PPX Diet Hep-Lock DVT prophylaxis not indicated patient ambulating PUD prophylaxis -omeprazole Admit to med surg Home medications reconciled Discussed plan of care with patient and nurse Plan discussed with: Patient My Orders Orders - [facility] Procedure Category Date Status Time Admit ADMIT 06/05/24 Transmitted 13:29 Allergies EDIS 06/05/24 In Process 13:29 Code Status CODE 06/05/24 Transmitted 13:29 2 Gm Sodium Diet DIET 06/05/24 Transmitted Lunch Hydrocodone-Acet PHA 06/05/24 Logged 5/325mg Tab ([place] 13:30 Complete Blood Count LAB 06/06/24 Verified 04:00 Comprehensive LAB 06/06/24 Verified Metabolic Panel 04:00 Acetaminophen Tablet PHA 06/05/24 Logged (Tylenol Tablet) 13:30 Morphine Sulfate PHA 06/05/24 Logged Injection 13:30 Metoclopramide PHA 06/05/24 Logged Injection (Reglan 13:[address] Tablet PHA 06/05/24 Logged (Depakote "Dr" Tabl 14:00 Clonazepam Tablet PHA 06/06/24 Logged (Klonopin Tablet) 10:00 Albuterol Medneb PHA 06/05/24 Logged (Ventolin Medneb) 14:15 Date of Service: Jun 05, 2024 Billing Provider: [facility] Common Visit Codes: [id number] INP/OBS CARE (HIGH) [facility] Jun 05, 2024 14:24
[2024-06-05 16:22] VITALS: BP 140/94; PULSE 89; RESP 18; TEMP 98.4; O2SAT 97
[2024-06-05 18:00] VITALS: BP 135/83; PULSE 85; RESP 19; TEMP 98.1; O2SAT 98
[2024-06-05 18:11] LABS: Urine Bacteria None Seen /hpf (None Seen)
[2024-06-05 18:19] LABS: Urine Blood 1+ /uL (Negative); Urine Budding Yeast OCCASIONAL /hpf (None Seen); Urine Clarity Clear (Clear); Urine Color Yellow (Yellow); Urine Mucus FEW (None Seen); Urine Protein, UAD TRACE (Negative); Urine Specific Gravity 1.024 (1.001-1.035); Urine Squamous Epithelial Cell FEW /hpf (<5); Urine Urobilinogen Normal (Negative); Urine WBC 21 /HPF (0-3); Urine pH 5.5 (5.0-9.0)
[2024-06-05 20:00] VITALS: PULSE 85; RESP 18; O2SAT 98
[2024-06-05 21:00] VITALS: BP 132/75; PULSE 98; RESP 19; TEMP 98.1; O2SAT 92
[2024-06-05 23:43] VITALS: O2SAT 96
[2024-06-06] VITALS (8 sets, daily range): BP systolic 109–134; BP diastolic 79–87; PULSE 70–90; RESP 16–22; TEMP 97.9–98.3; O2SAT 92–98
[2024-06-06 03:53] LABS: Basophils # (auto) 0 10 ^3/uL (0-0.2); Basophils % (auto) 0.7 % (0.0-2.0); Eosinophils # (auto) 0.1 10 ^3/uL (0-0.8); Eosinophils % (auto) 2.5 % (0.0-7.0); Hematocrit 38.4 % (41.0-53.0); Hemoglobin 13.5 g/dL (13.5-17.5); Lymphocytes # (auto) 1.5 10 ^3/uL (0.4-5.4); Lymphocytes % (auto) 28.2 % (10.0-50.0); Mean Corpuscular Hgb Conc. 35.2 g/dL (32.0-36.0); Mean Corpuscular Volume 85.1 fL (80.0-100.0); Monocytes # (auto) 0.7 10 ^3/uL (0-1.3); Monocytes % (auto) 13.4 % (0.0-12.0); Neutrophils % (auto) 55.2 % (37.0-80.0); Nucleated Red Blood Cells % 0.1 %; Platelet Count (auto) 202 10^3/uL (140-450); Red Blood Cells 4.51 10^6/uL (4.5-5.90); Red Cell Distribution Width 16.2 % (11.8-14.3); White Blood Cell 5.4 10^3/uL (4.4-10.8)
[2024-06-06 04:14] LABS: Alanine Aminotransferase 38 U/L (7-40); Albumin 3.9 g/dL (3.2-4.8); Alkaline Phosphatase 84 U/L (46-116); Anion Gap 9 (5-15); Aspartate Aminotransferase 30 U/L (13-40); BUN/Creatinine Ratio 15.4 (10.0-20.0); Blood Urea Nitrogen 12 mg/dL (9-23); Calcium 9.6 mg/dL (8.7-10.4); Carbon Dioxide 27 mmol/L (20-31); Chloride 102 mmol/L (98-107); Potassium 3.8 mmol/L (3.5-5.1); Sodium 138 mmol/L (136-145)
[2024-06-06 04:15] LABS: Bilirubin, Total 0.3 mg/dL (0.2-1.0); Total Protein 6.9 g/dL (5.7-8.2)
[2024-06-06 04:28] LABS: Glucose 155 mg/dL (74-106)
--- NOTE | 2024-06-06 13:14 | DVHPN2 ---
Reviewed: Care Plan, H&P, Labs, Medications, Previous Orders, Radiology Changes from previous H/P or p: No Changes Eyes: No Pain, No Vision change, No Conjunctivae inflammation, No Eyelid inflammation, No Other, No Redness ENT: No Ear pain, No Ear discharge, No Nose pain, No Nose discharge, No Nose congestion, No Mouth pain, No Mouth swelling, No Throat pain, No Throat swelling, No Other Cardiovascular: No Chest Pain, No Palpitations, No Orthopnea, No Paroxysmal Noc. Dyspnea, No Edema, No Lt Headedness, No Other Respiratory: No Cough, No Dry, No Shortness of breath, No SOB with excertion, No Wheezing, No Hemoptysis, No Pleuritic Pain, No Sputum, No Other Gastrointestinal: Nausea, Vomiting, Abdominal Pain Genitourinary: No Dysuria, No Frequency, No Incontinence, No Hematuria, No Retention, No Other Musculoskeletal: No other, No neck pain, No shoulder pain, No arm pain, No back pain, No hand pain, No leg pain, No foot pain Skin: No Rash, No Lesions, No Jaundice, No Bruising, No Other Objective Vitals Vital Signs Date Time Temp Pulse Resp B/P (MAP) Pulse Ox O2 Delivery O2 Flow Rate FiO2 06/06/24 09:55 95 Room Air 0.0 06/06/24 09:55 21 06/06/24 05:00 98.0 90 21 121/82 (95) 98.0 Intake/Output Intake and Output 06/06/24 07:00 Intake Total 1250 ml Balance 1250 ml Intake Oral 1250 ml Medications Current Medications Medications Dose Ordered Sig/Savana Route Start Time Stop Time Status Last Admin Dose Admin Acetaminophen/ Hydrocodone Bitart 1 tab Q4HP PRN PO 06/05/24 13:30 Acetaminophen 650 mg Q6HP PRN PO 06/05/24 13:30 Morphine Sulfate 2 mg Q4HPRN PRN IV 06/05/24 13:30 Metoclopramide HCl 5 mg Q6HPRN PRN IV 06/05/24 13:30 Divalproex Sodium 250 mg TID PO 06/05/24 14:00 06/06/24 05:46 250 MG Clonazepam 0.5 mg DAILY PO 06/05/24 14:20 Hold Albuterol 2.5 mg Q4HPRN PRN NEB 06/05/24 14:15 Laboratory Results Laboratory Tests 06/06/24 03:30 Chemistry Test 06/06/24 03:30 Albumin 3.9 g/dL (3.2-4.8) Calcium Level 9.6 mg/dL (8.7-10.4) Total Protein 6.9 g/dL (5.7-8.2) LFT Test 06/06/24 03:30 Alanine Aminotransferase (ALT) 38 U/L (7-40) Alkaline Phosphatase 84 U/L (46-116) Aspartate Amino Transferase (AST) 30 U/L (13-40) Total Bilirubin 0.3 mg/dL (0.2-1.0) Urinalysis Test 06/05/24 17:30 Urine Color Yellow (Yellow) Urine Clarity Clear (Clear) Urine pH 5.5 (5.0-9.0) Urine Specific [place] 1.024 (1.001-1.035) Urine Protein Trace (Negative) H Urine Ketones Trace (Negative) Urine Blood 1+ /uL (Negative) H Urine Nitrite Negative (Negative) Urine Bilirubin Negative (Negative) Urine Urobilinogen Normal mg/dL (Negative) Urine Leukocyte Esterase 2+ /uL (Negative) Urine RBC 33 /hpf (0 - 3) Urine Microscopic WBC 21 /HPF (0-3) H Urine Squamous Epithelial Cells Few /hpf (<5) Urine Bacteria None seen /hpf (None Seen) Urine Mucus Few (None Seen) Urine Yeast (Budding) Occasional /hpf (None Urine Glucose Normal mg/dL (Normal) Labs and/or images reviewed: Labs reviewed by me, Image(s) reviewed by me Assessment/Plan Assessment/Plan Sepsis Secondary to acute urinary tract infection Acute urinary tract infection: Urine cultures Rocephin Intractable Abdominal pain Hepatic steatosis Hypertension Cholesterol Seizures Hypothyroidism Autism Cerebral Palsy Morbid obesity Patient wants to go home today Plan discussed with: Patient Date of Service: Jun 06, 2024 Billing Provider: ISAMAR HER MD Common Visit Codes: [id number] INP/OBS CARE(HIGH) ISAMAR HER MD Jun 06, 2024 13:14
[2024-06-06] MEDS: cefTRIAXone 1GM/50ML D5W 50 ML IV ONE (13:15)
[2024-06-06] MEDS ORDERED: CIPR-173 PO (13:15)
--- NOTE | 2024-06-06 13:19 | DVHDS2 ---
Discharge Summary Date of Admission Jun 05, 2024 at 13:29 Date of Discharge: Jun 06, 2024 Admitting Diagnosis Abdominal pain Wounds: None Labs/Diagnostic Data: Laboratory Results Test 06/06/24 03:30 06/05/24 17:30 06/05/24 11:56 06/05/24 11:50 White Blood Count 5.4 10^3/uL (4.4-10.8) Red Blood Count 4.51 10^6/uL (4.5-5.90) Hemoglobin 13.5 g/dL (13.5-17.5) Hematocrit 38.4 % (41.0-53.0) Mean Corpuscular Volume 85.1 fL (80.0-100.0) Mean Corpuscular Hemoglobin 30.0 pg (28.0-32.0) Mean Corpuscular Hemoglobin Concent 35.2 g/dL (32.0-36.0) Red Cell Distribution Width 16.2 % (11.8-14.3) Platelet Count 202 10^3/uL (140-450) Mean Platelet Volume 7.1 fL (6.9-10.8) Neutrophils (%) (Auto) 55.2 % (37.0-80.0) Lymphocytes (%) (Auto) 28.2 % (10.0-50.0) Monocytes (%) (Auto) 13.4 % (0.0-12.0) Eosinophils (%) (Auto) 2.5 % (0.0-7.0) Basophils (%) (Auto) 0.7 % (0.0-2.0) Neutrophils # (Auto) 3.0 10 ^3/uL (1.6-8.6) Lymphocytes # (Auto) 1.5 10 ^3/uL (0.4-5.4) Monocytes # (Auto) 0.7 10 ^3/uL (0-1.3) Eosinophils # (Auto) 0.1 10 ^3/uL (0-0.8) Basophils # (Auto) 0 10 ^3/uL (0-0.2) Nucleated Red Blood Cells 0.1 % Sodium Level 138 mmol/L (136-145) Potassium Level 3.8 mmol/L (3.5-5.1) Chloride Level 102 mmol/L (98-107) Carbon Dioxide Level 27 mmol/L (20-31) Anion Gap 9 (5-15) Blood Urea Nitrogen 12 mg/dL (9-23) Creatinine 0.78 mg/dL (0.700-1.30) Glomerular Filtration Rate Calc 115 mL/min (>90) BUN/Creatinine Ratio 15.4 (10.0-20.0) Serum Glucose 155 mg/dL (74-106) Calcium Level 9.6 mg/dL (8.7-10.4) Total Bilirubin 0.3 mg/dL (0.2-1.0) Aspartate Amino Transferase (AST) 30 U/L (13-40) Alanine Aminotransferase (ALT) 38 U/L (7-40) Alkaline Phosphatase 84 U/L (46-116) Total Protein 6.9 g/dL (5.7-8.2) Albumin 3.9 g/dL (3.2-4.8) Urine Color Yellow (Yellow) Urine Clarity Clear (Clear) Urine pH 5.5 (5.0-9.0) Urine Specific [place] 1.024 (1.001-1.035) Urine Protein Trace (Negative) Urine Ketones Trace (Negative) Urine Blood 1+ /uL (Negative) Urine Nitrite Negative (Negative) Urine Bilirubin Negative (Negative) Urine Urobilinogen Normal mg/dL (Negative) Urine Leukocyte Esterase 2+ /uL (Negative) Urine RBC 33 /hpf (0 - 3) Urine Microscopic WBC 21 /HPF (0-3) Urine Squamous Epithelial Cells Few /hpf (<5) Urine Bacteria None seen /hpf (None Seen) Urine Mucus Few (None Seen) Urine Yeast (Budding) Occasional /hpf (None Urine Glucose Normal mg/dL (Normal) POC Glucose 133 mg/dl (70-106) Lipase 30 U/L (12-53) Other Laboratory Tests 06/06/24 03:30 Brief Hx & Hospital Course: 43-year-old male with a history of hypertension cholesterol seizures hypothyroidism autism cerebral palsy morbid obesity brought in from board and care for abdominal pain. CT abdomen pelvis without contrast was negative for any acute pathology except for hepatic steatosis urine showed infection treated with Rocephin urine cultures pending patient is demanding to be discharged back to board and care today [facility] Consults/Reason for consult None Operations or Procedures CT abdomen pelvis without contrast Condition at Discharge: Fair Final Diagnosis/Problems List Sepsis Secondary to acute urinary tract infection Acute urinary tract infection: Urine cultures Rocephin Intractable Abdominal pain Hepatic steatosis Hypertension Cholesterol Seizures Hypothyroidism Autism Cerebral Palsy Morbid obesity Discharge Disposition: Assisted Living Facility Discharge Instruct/Medications Diet: Cardiac 2g Na,low cholest Activity: Light activity Follow Up/Referral: Follow up with the primary Dr Medications: Cipro transmitted to pharmacy 39 (Time taken for discharge summary 39 minutes) Discharge Statement: "Patient was advised to return to the ER or call 911 if any headaches, dizziness, shortness of breath, chest pain, abdominal pain, bleeding, fevers, or worsening of medical condition. Patient was counseled about treatment plan, medications, possible side effects, patientverbalized understanding. All questions were answered to the best of my ability. This discharge took greater then 30 minutes in planning, reviewing documentation, counseling the patient, and discussing with other team members." ASSESSMENT ASSESSMENT Hospital Course Uneventful Assessment Sepsis Secondary to acute urinary tract infection Acute urinary tract infection: Urine cultures Rocephin Intractable Abdominal pain Hepatic steatosis Hypertension Cholesterol Seizures Hypothyroidism Autism Cerebral Palsy Morbid obesity Date of Service: Jun 06, 2024 Billing Provider: ISAMAR HER MD Common Visit Codes: [id number] DISCH DAY >30min ISAMAR HER MD Jun 06, 2024 13:18
[2024-06-06] MEDS: LACTULOSE 20Gm/30ML SOLN PO ONE (13:58)
[2024-06-07] MEDS ORDERED: cefTRIAXone 1GM/50ML D5W 50 ML IV SCH (09:00)
== END 2024-06-06 17:35 | disposition home or self-care (01) | DRG 690 ==
LOC: EDBD 10:24 → ER 10:24 → OVERFLOW 13:29 → WEST WING 18:03
DX: N30.01 Acute cystitis with hematuria (principal); F84.0 Autistic disorder; Z68.43 Body mass index [BMI] 50.0-59.9, adult; E66.01 Morbid (severe) obesity due to excess calories; E03.9 Hypothyroidism, unspecified; I10 Essential (primary) hypertension; G80.9 Cerebral palsy, unspecified; E78.5 Hyperlipidemia, unspecified; K76.0 Fatty (change of) liver, not elsewhere classified; F32.A Depression, unspecified; R56.9 Unspecified convulsions; Z88.3 Allergy status to other anti-infective agents; Z83.3 Family history of diabetes mellitus
CPT/HCPCS: 36415; 74176; 80053; 81001; 82962; 83690; 85025; 86850; 86900; 86901; 87086; G0378

== ENCOUNTER 2024-06-21 17:50 | Emergency (ER) | payer OTHER, MEDICAID ==
[~2024-06-21] VITALS: Ht 180.3 cm; Wt 160.0 kg
[~2024-06-21 17:50] MED LIST changes: +CIPR-173 PO; +FLUT50SP NAS; +FURO20TA4; +HYDR50TA69; +OLAN1TAB19; +QUET400T13; +TAMS0.4C39; +TERB250T92
--- NOTE | 2024-06-21 19:06 | ED.PDOC ---
History of Present Illness HPI Comments 43 y/o M is BIBA for c/o right-upper and lower quadrant abdominal pain, nausea, vomiting, and diarrhea for 1x week, today. Patient is a poor historian and endorses on unprovoked onset of symptoms that have been progressively worsening since. He denies any hematemesis, hematochezia, urinary symptoms, fever, chills, or other associated symptoms or modifiers at this time. Chief Complaint: Abdominal Pain Time Seen by MD: 18:45 Primary Care Provider: LUBIN Reviewed Notes: Nurses Notes, Junior Linux Administrator Notes, Medications, Allergies Allergies: Coded Allergies: Brompheniramine (Verified Allergy, Severe, 06/21/24) Paliperidone (Verified Allergy, Severe, 12/11/16) Risperidone (Verified Allergy, Severe, 12/11/16) Ondansetron (Unverified Allergy, Unknown, NAUSEA, 10/29/17) Sulfamethoxazole w/Trimethoprim (Verified Allergy, Unknown, 12/11/16) Home Meds Active Scripts Dicyclomine Hcl (BENTYL CAPSULE) 10 Mg Cp, 1 CAP PO Q6HPRN PRN for 10 Days, #40 CAP 3 Refills Prov:BRITTANY COSBY MD 06/21/24 Loperamide Hcl (Imodium) 2 Mg Cp, 2 MG PO Q6HP PRN for 7 Days, #30 CAP 1 Refill Prov:BRITTANY COSBY MD 06/21/24 Ondansetron HCl (Ondansetron Hydrochloride) 8 Mg Tab, 8 MG PO Q6HP PRN for 7 Days, #28 TAB 1 Refill Prov:BRITTANY COSBY MD 06/21/24 Ciprofloxacin Hcl (Cipro) 500 Mg Tab, 1 TAB PO BID, #20 TAB Prov:ISAMAR HER MD 06/06/24 Reported Medications Quetiapine Fumerate (QUETIAPINE FUMARATE) 400 Mg Tab, 1 06/05/24 Fluticasone Propionate (Nasal) (Fluticasone Propionate) 50 Mcg/Act Spr, ANNETTA 06/05/24 Tamsulosin Hcl (Tamsulosin Hcl) 0.4 Mg Cap 06/05/24 Hydroxyzine Hcl (Hydroxyzine Hcl) 50 Mg Tab, 1 06/05/24 Terbinafine Hcl (Terbinafine Hcl) 250 Mg Tab, 1 DAILY 06/05/24 Olanzapine (OLANZAPINE) 10 Mg Tab, 1 06/05/24 Furosemide (Furosemide) 20 Mg Tab, 1 DAILY 06/05/24 Divalproex Sodium (Divalproex Sodium Dr) 500 Mg Tab, 1 TAB PO TID 03/17/24 Divalproex Sodium (Divalproex Sodium Dr) 250 Mg Tab, TAB PO 03/17/24 Clonazepam (Clonazepam) 0.5 Mg Tab, TAB PO 03/17/24 Divalproex Sodium (Divalproex Sodium Dr) 500 Mg Tab, 1 TAB PO TID 03/17/24 Divalproex Sodium (Divalproex Sodium Dr) 250 Mg Tab, TAB PO 03/17/24 Clonazepam (Clonazepam) 0.5 Mg Tab, TAB PO 03/17/24 Mode of Arrival: EMS Past Medical History PAST MEDICAL HISTORY: Depression, High Lipids, HTN, Seizures, Thyroid Past Medical History (Other): morbid obesity Surgical History: Denies all surgeries Family History Family History: Unknown Social History Smoker: Non-Smoker Alcohol: Denies ETOH Use Drugs: Denies Drug Use Lives In: Home All Other Systems: Reviewed and Negative (negative unless otherwise stated in HPI) Physical Exam General Appearance: Mild Distress, Obese HEENT: Normal ENT Inspection, Pharynx Normal, TMs Normal Neck: Full Range of Motion, Non-Tender, Normal, Normal Inspection Respiratory: Chest Non-Tender, Lungs Clear, No Accessory Muscle Use, No Respiratory Distress, Normal Breath Sounds Cardiovascular: No Edema, No JVD, No Murmur, No Gallop, Normal Peripheral Pulses, Regular Rate/Rhythm Breast Exam: Deferred Gastrointestinal: No Organomegaly, No Pulsatile Mass, Normal Bowel Sounds, RLQ (tenderness), RUQ (tenderness), Soft, Tenderness (RUQ and RLQ) Genitalia: Deferred Pelvic: Deferred Rectal: Deferred Extremities: No calf tenderness, Normal capillary refill, Normal inspection, Normal range of motion, Non-tender, No pedal edema Musculoskeletal : Apperance: Normal Neurologic: Alert, fruit bar maker II-XII nml as Tested, No Motor Deficits, Normal Affect, Normal Mood, No Sensory Deficits Cerebellar Function: Normal Reflexes: Normal Skin: Dry, Normal Color, Warm Lymphatic: No Adenopathy Was a procedure done? Was a procedure done?: No Differential Dx Considerations may include: gastritis, gastroenteritis, viral syndrome, spoiled food, cholecystitis, cholelithiasis, nephrolithiasis, UTI X-Ray, Labs, Meds, VS Vital Signs Date Time Temp Pulse Resp B/P (MAP) Pulse Ox O2 Delivery O2 Flow Rate FiO2 06/21/24 19:55 98.1 89 19 151/98 (115) 95 98.1 06/21/24 19:55 89 19 95 Room Air 06/21/24 18:11 99.5 92 18 179/72 (107) 98 Lab Test 06/21/24 19:24 06/21/24 18:15 Range/Units White Blood Count 4.8 4.4-10.8 10^3/uL Red Blood Count 4.45 L 4.5-5.90 10^6/uL Hemoglobin 12.5 L 13.5-17.5 g/dL Hematocrit 37.9 L 41.0-53.0 % Mean Corpuscular Volume 85.2 80.0-100.0 fL Mean Corpuscular Hemoglobin 28.1 28.0-32.0 pg Mean Corpuscular Hemoglobin Concent 32.9 32.0-36.0 g/dL Red Cell Distribution Width 15.9 H 11.8-14.3 % Platelet Count 182 140-450 10^3/uL Mean Platelet Volume 7.4 6.9-10.8 fL Neutrophils (%) (Auto) 63.4 37.0-80.0 % Lymphocytes (%) (Auto) 22.1 10.0-50.0 % Monocytes (%) (Auto) 11.7 0.0-12.0 % Eosinophils (%) (Auto) 2.0 0.0-7.0 % Basophils (%) (Auto) 0.8 0.0-2.0 % Neutrophils # (Auto) 3.0 1.6-8.6 10 ^3/uL Lymphocytes # (Auto) 1.1 0.4-5.4 10 ^3/uL Monocytes # (Auto) 0.6 0-1.3 10 ^3/uL Eosinophils # (Auto) 0.1 0-0.8 10 ^3/uL Basophils # (Auto) 0 0-0.2 10 ^3/uL Nucleated Red Blood Cells 0.3 % Sodium Level 140 136-145 mmol/L Potassium Level 3.9 3.5-5.1 mmol/L Chloride Level 103 98-107 mmol/L Carbon Dioxide Level 30 20-31 mmol/L Anion Gap 7 5-15 Blood Urea Nitrogen 13 9-23 mg/dL Creatinine 0.84 0.700-1.30 mg/dL Glomerular Filtration Rate Calc 112 >90 mL/min BUN/Creatinine Ratio 15.5 10.0-20.0 Serum Glucose 181 H 74-106 mg/dL Calcium Level 9.3 8.7-10.4 mg/dL Total Bilirubin < 0.2 L 0.2-1.0 mg/dL Aspartate Amino Transferase (AST) 29 13-40 U/L Alanine Aminotransferase (ALT) 31 7-40 U/L Alkaline Phosphatase 85 46-116 U/L Total Protein 6.7 5.7-8.2 g/dL Albumin 3.9 3.2-4.8 g/dL Lipase 31 12-53 U/L Urine Color Light-orange Yellow Urine Clarity Ex.turbid Clear Urine pH 7.5 5.0-9.0 Urine Specific [place] 1.023 1.001-1.035 Urine Protein 3+ H Negative Urine Ketones Trace Negative Urine Blood Negative Negative /uL Urine Nitrite Negative Negative Urine Bilirubin Negative Negative Urine Urobilinogen Normal Negative mg/dL Urine Leukocyte Esterase Trace Negative /uL Urine RBC 4 0 - 3 /hpf Urine Microscopic WBC 6 H 0-3 /HPF Urine Squamous Epithelial Cells Few <5 /hpf Urine Bacteria Few H None Seen /hpf Urine Hyaline Casts Few 0 - 2 /lpf Urine Mucus Few None Seen Urine Glucose Normal Normal mg/dL Current Medications Medications (Trade) Dose Ordered Sig/Savana Route Start Time Stop Time Status Last Admin Ondansetron HCl (Zofran Po) 8 mg ONCE ONCE PO 06/21/24 19:15 06/21/24 19:16 DC 06/21/24 19:52 Acetaminophen/ Hydrocodone Bitart ([place] 10/325MG Tab) 1 tab ONCE ONCE PO 06/21/24 19:15 06/21/24 19:16 DC 06/21/24 19:52 Time of 1ST Reevaluation: 19:15 Reevaluation 1ST: Unchanged Time of 2ND Reevaluation: 20:30 Reevaluation 2ND: Improved Patient Education/Counseling: Diagnosis, Treatment Family Education/Counseling: No Family Present Departure 1 Departure Time of Disposition: 20:30 Impression: Primary Impression: Right sided abdominal pain Disposition: 01 HOME / SELF CARE / HOMELESS Condition: Stable e-Prescriptions Dicyclomine Hcl (BENTYL CAPSULE) 10 Mg Cp 1 CAP PO Q6HPRN PRN for 10 Days, #40 CAP 3 Refills Prov: BRITTANY COSBY MD 06/21/24 Loperamide Hcl (Imodium) 2 Mg Cp 2 MG PO Q6HP PRN for 7 Days, #30 CAP 1 Refill Prov: BRITTANY COSBY MD 06/21/24 Ondansetron HCl (Ondansetron Hydrochloride) 8 Mg Tab 8 MG PO Q6HP PRN for 7 Days, #28 TAB 1 Refill Prov: BRITTANY COSBY MD 06/21/24 Discharged With: Self Comments I personally reviewed and interpreted the lab and imaging studies. I reviewed the results with the patient and using shared decision making we decided on outpatient management with closed outpatient follow up. I did notify the patient that there was a risk that his condition could worsen and he agreed to immediately return to the Emergency Department for any worsening symptoms or concerns. Critical Care Note Critical Care Time?: No Stability Stability form required: No Heart Score Heart Score: Heart Score Response (Comments) Value History N/A 0 EKG N/A 0 Age N/A 0 Risk Factors N/A 0 Troponin N/A 0 Total 0 I personally scribed for BRITTANY COSBY MD ([email or web address]) on 06/21/24 at 19:06. Electronically submitted by Denzel Robles ([email or web address]). BRITTANY COSBY MD Jun 21, 2024 19:06
[2024-06-21 19:22] LABS: Urine Bacteria FEW /hpf (None Seen); Urine Blood Negative /uL (Negative); Urine Clarity Ex.Turbid (Clear); Urine Color Light-Orange (Yellow); Urine Hyaline Cast FEW /lpf (0 - 2); Urine Mucus FEW (None Seen); Urine Protein, UAD 3+ (Negative); Urine Specific Gravity 1.023 (1.001-1.035); Urine Squamous Epithelial Cell FEW /hpf (<5); Urine Urobilinogen Normal (Negative); Urine WBC 6 /HPF (0-3); Urine pH 7.5 (5.0-9.0)
[2024-06-21] MEDS: HYDROcodone-ACET 10/325MG TAB PO ONE (19:52)
[2024-06-21] MEDS: ONDANSETRON ODT 4 MG TAB PO ONE (19:52)
[2024-06-21 19:53] LABS: Alanine Aminotransferase 31 U/L (7-40); Alkaline Phosphatase 85 U/L (46-116); Anion Gap 7 (5-15); BUN/Creatinine Ratio 15.5 (10.0-20.0); Basophils # (auto) 0 10 ^3/uL (0-0.2); Basophils % (auto) 0.8 % (0.0-2.0); Blood Urea Nitrogen 13 mg/dL (9-23); Calcium 9.3 mg/dL (8.7-10.4); Carbon Dioxide 30 mmol/L (20-31); Chloride 103 mmol/L (98-107); Eosinophils # (auto) 0.1 10 ^3/uL (0-0.8); Hematocrit 37.9 % (41.0-53.0); Hemoglobin 12.5 g/dL (13.5-17.5); Lipase 31 U/L (12-53); Lymphocytes # (auto) 1.1 10 ^3/uL (0.4-5.4); Lymphocytes % (auto) 22.1 % (10.0-50.0); Mean Corpuscular Hemoglobin 28.1 pg (28.0-32.0); Mean Corpuscular Hgb Conc. 32.9 g/dL (32.0-36.0); Mean Corpuscular Volume 85.2 fL (80.0-100.0); Monocytes # (auto) 0.6 10 ^3/uL (0-1.3); Monocytes % (auto) 11.7 % (0.0-12.0); Neutrophils % (auto) 63.4 % (37.0-80.0); Nucleated Red Blood Cells % 0.3 %; Platelet Count (auto) 182 10^3/uL (140-450); Potassium 3.9 mmol/L (3.5-5.1); Red Blood Cells 4.45 10^6/uL (4.5-5.90); Red Cell Distribution Width 15.9 % (11.8-14.3); Sodium 140 mmol/L (136-145); White Blood Cell 4.8 10^3/uL (4.4-10.8)
[2024-06-21 19:54] LABS: Albumin 3.9 g/dL (3.2-4.8); Aspartate Aminotransferase 29 U/L (13-40); Total Protein 6.7 g/dL (5.7-8.2)
[2024-06-21 19:55] VITALS: BP 151/98; PULSE 89; RESP 19; TEMP 98.1; O2SAT 95
[2024-06-21 19:57] LABS: Bilirubin, Total < 0.2 mg/dL (0.2-1.0); Glucose 181 mg/dL (74-106)
--- NOTE | 2024-06-21 21:15 | DVH ---
Exam: CT CT AB PEL WO CON-NO ORAL OR IV History: right flank pain Comparison Study: None available at time of dictation. TECHNIQUE: Multidetector CT of the abdomen was performed from lung bases to pubic symphysis. Imaging was performed without IV contrast. Axial, coronal and sagittal multiplanar reformats were obtained fr om the axial data set by the technologist. Radiation Dose Information: CT Dose: CTDI volume is 26.36 mGy. Dose-length product is 1607.77 mGy*cm FINDINGS: Evaluation of solid organs is limited due to lack of intravenous contrast use. Findings: Lung Bases: No acute or significant lung base finding. Normal heart size. No pleural or pericardial effusion. Liver: The liver is normal in size. No focal lesions. Gallbladder and Biliary Tree: Unremarkable Spleen: Unremarkable Pancreas: The pancreas is grossly normal in appearance. Adrenal Glands: Unremarkable Kidneys: Kidneys are grossly normal without calculi or hydronephrosis. Bladder: Grossly unremarkable for degree of distention. Bowel: The stomach is grossly normal in appearance. Small bowel and colon are normal in caliber and d istribution. The appendix is not visualized; however, no secondary findings of acute appendicitis id entified. Ascites: Absent Lymphadenopathy: No mesenteric, retroperitoneal or periportal lymphadenopathy. Abdominal Wall and Mesentery: Unremarkable. Vasculature: The visualized abdominal aorta is normal in size and caliber. Evaluation of abdominal a nd pelvic vessels is limited due to lack of intravenous contrast. Pelvic Organs: Unremarkable Musculoskeletal: No aggressive focal bony lesions, acute fractures or dislocation. Soft tissues: Unremarkable IMPRESSION: 1. No nephrolithiasis or hydronephrosis. 2. No bladder calculi. Radiation optimization: All CT scans at this facility use at least one of these dose optimization te chniques: automated exposure control mA and/or kV adjustment per patient size (includes targeted exa ms where dose is matched to clinical indication) or iterative reconstruction.
[2024-06-21] MEDS ORDERED: LOPE2CAP16 PO (21:32)
[2024-06-21] MEDS ORDERED: DICY10CA PO (21:32)
[2024-06-21] MEDS ORDERED: ONDA-180 PO (21:32)
== END 2024-06-21 22:38 | disposition home or self-care (01) ==
LOC: EDBD 17:50 → ER 17:50
DX: R10.31 Right lower quadrant pain (principal); R10.11 Right upper quadrant pain; I10 Essential (primary) hypertension; F32.A Depression, unspecified; E78.5 Hyperlipidemia, unspecified; E03.9 Hypothyroidism, unspecified; E66.01 Morbid (severe) obesity due to excess calories; Z79.899 Other long term (current) drug therapy; Z98.890 Other specified postprocedural states; Z88.1 Allergy status to other antibiotic agents; Z88.2 Allergy status to sulfonamides; Z88.8 Allergy status to other drugs, medicaments and biological substances
CPT/HCPCS: 36415; 74176; 80053; 81001; 83690; 85025; 99284; Q0162

== ENCOUNTER 2024-06-27 10:43 | Emergency (ER) | payer OTHER, MEDICAID ==
[~2024-06-27] VITALS: Ht 177.8 cm; Wt 159.0 kg
[~2024-06-27 10:43] MED LIST changes: +DICY10CA PO; +LOPE2CAP16 PO; +ONDA-180 PO
[2024-06-27 11:14] VITALS: BP 155/62; PULSE 82; TEMP 98.3
--- NOTE | 2024-06-27 11:23 | ED.PDOC ---
SOB-HPI HPI Comments A 43 YEAR OLD MALE BROUGHT IN BY AMBULANCE PRESENTS TO THE ED WITH COMPLAINT OF COUGH. PATIENT STATES HE HAS BEEN EXPERIENCING A COUGH AND NASAL CONGESTION FOR THE PAST 1 WEEK. PER PATIENT, HE HAS A HISTORY OF COPD AND ASTHMA AND USES 2L OF O2 AT HOME. PATIENT DENIES FEVER, CHILLS, SHORTNESS OF BREATH, CHEST PAIN, ABDOMINAL PAIN, NAUSEA, VOMITING, HEADACHE, OR OTHER COMPLAINTS. NO OTHER SYMPTOMS OR MODIFYING FACTORS AT THIS TIME. PATIENT IS ALERT, ORIENTED X 4, AND HAS STEADY GAIT. Chief Complaint: Flu like Time Seen by MD: 10:55 Primary Care Provider: AMEE Reviewed notes: Nurses Notes, Medications, Allergies Information Source: Patient, Emergency Med Personnel Mode of Arrival: EMS Severity: Moderate Timing: Days Duration: Since onset, Days Context: Spontaneous Onset PE Risk Factors: None History of: Asthma, COPD Prehospital treatment: None Modifying Factors: Nothing Associated Signs and Symptoms: Cough, Nasal Congestion If cough with SOB: Productive Past Medical History PAST MEDICAL HISTORY: Asthma, COPD, Depression, High Lipids, HTN, Seizures, Thyroid Surgical History: Denies all surgeries Family History Family History: Reviewed,noncontributory to illness Social History Smoker: Non-Smoker Alcohol: Denies ETOH Use Drugs: Denies Drug Use Lives In: Home Constitutional: denies: chills, diaphoresis, fatigue, fever, malaise, sweats, weakness, others EENTM: reports: nose congestion; denies: blurred vision, double vision, ear bleeding, ear discharge, ear drainage, ear pain, ear ringing, eye pain, eye redness, hearing loss, mouth pain, mouth swelling, nasal discharge, nose bleeding, nose pain, photophobia, tearing, throat pain, throat swelling, voice changes, others Respiratory: reports: cough; denies: hemoptysis, orthopnea, SOB at rest, shortness of breath, SOB with excertion, stridor, wheezing, others Cardiovascular: denies: chest pain, dizzy spells, diaphoresis, Dyspnea on exertion, edema, irregular heart beat, left arm pain, lightheadedness, palpitations, PND, syncope, others Gastrointestinal: denies: abdomen distended, abdominal pain, blood streaked bowels, constipated, diarrhea, dysphagia, difficulty swallowing, hematemesis, melena, nausea, poor appetite, poor fluid intake, rectal bleeding, rectal pain, vomiting, others Genitourinary: denies: burning, dysuria, flank pain, frequency, hematuria, incontinence, penile discharge, penile sore, pain, testicle pain, testicle swelling, urgency, others Neurological: denies: dizziness, fainting, headache, left sided numbness, left sided weakness, numbness, paresthesia, pre-existing deficit, right sided numbness, right sided weakness, seizure, speech problems, tingling, tremors, weakness, others Musculoskeletal: denies: back pain, gout, joint pain, joint swelling, muscle pain, muscle stiffness, neck pain, others Integumetry: denies: bruises, change in color, change in hair/nails, dryness, laceration, lesions, lumps, rash, wounds, others Allergic/Immunocompromised: denies: Difficulty Healing, Frequent Infections, Hives, Itching, others Hematologic/Lymphatic: denies: anemia, blood clots, easy bleeding, easy bruising, swollen glands, others Endocrine: denies: excessive hunger, excessive sweating, excessive thirst, excessive urination, flushing, intolerance to cold, intolerance to heat, unexplained weight gain, unexplained weight loss, others Psychiatric: denies: anxiety, bipolar disorder, depression, hopeless, panic disorder, schizophrenia, sleepless, suicidal, others All Other Systems: Reviewed and Negative Physical Exam General Appearance: Obese HEENT: Normal ENT Inspection, PERRL/EOMI, Pharynx Normal, TMs Normal Neck: Full Range of Motion, Non-Tender, Normal, Normal Inspection Respiratory: Chest Non-Tender, Expiration, No Accessory Muscle Use, No Respiratory Distress, Rhonchi Cardiovascular: No Edema, No JVD, No Murmur, No Gallop, Normal Peripheral Pulses, Regular Rate/Rhythm Breast Exam: Deferred Gastrointestinal: No Organomegaly, Non Tender, No Pulsatile Mass, Normal Bowel Sounds, Soft Genitalia: Deferred Pelvic: Deferred Rectal: Deferred Extremities: No calf tenderness, Normal capillary refill, Normal inspection, Normal range of motion, Non-tender, No pedal edema Musculoskeletal : Apperance: Normal Neurologic: Alert, fish egg packer II-XII nml as Tested, No Motor Deficits, Normal Affect, Normal Mood, No Sensory Deficits Cerebellar Function: Normal Reflexes: Normal Skin: Dry, Normal Color, Warm Peripheral Pulses: 2+ carotid (R), 2+ carotid (L) Lymphatic: No Adenopathy Was a procedure done? Was a procedure done?: No Differential Dx Differential Diagnosis: Bronchitis, Pneumonia, Sinusitis, Allergic Rhinitis, Otitis Media, Pharyngitis, URI X-Ray, Labs, Meds, VS Vital Signs Date Time Temp Pulse Resp B/P (MAP) Pulse Ox O2 Delivery O2 Flow Rate FiO2 06/27/24 11:41 18 99 Nasal Cannula* 2 28 06/27/24 11:14 82 18 94 Nasal Cannula 2.0 06/27/24 11:14 98.3 82 18 155/62 (93) 94 98.3 06/27/24 10:56 98.3 82 18 155/62 (93) 94 06/27/24 10:50 85 Current Medications Medications (Trade) Dose Ordered Sig/Savana Route Start Time Stop Time Status Last Admin Albuterol (Ventolin Medneb) 2.5 mg ONCE ONCE NEB 06/27/24 11:30 06/27/24 11:31 DC 06/27/24 11:41 Ipratropium [place] (Atrovent Medneb) 0.5 mg ONCE ONCE NEB 06/27/24 11:30 06/27/24 11:31 DC 06/27/24 11:40 Methylprednisolone Sodium Succinate (Solu Medrol) 125 mg ONCE ONCE IM 06/27/24 11:30 06/27/24 11:31 DC 06/27/24 11:35 CHEST RADIOGRAPH Indication: COUGH Technique: Single frontal view of the chest was obtained COMPARISON: XY CHEST PORTABLE on DOS: 03/17/24 FINDINGS: Lines and Tubes: None Lungs: Clear Pleura: No effusion. No pneumothorax. Cardiomediastinal contours: Unremarkable Bones: Unremarkable IMPRESSION: No acute disease. ATED BY: GERMÁN MILLER MD DICTATED DATE/TIME: 06/27/24 1131 SIGNED BY: GERMÁN MILLER MD SIGNED DATE/TIME: 06/27/24 1131 CC: X-Ray, Labs, Meds, VS Comment EXTERNAL MEDICAL RECORDS REVIEWED: [NONE] INDEPENDENT HISTORIANS: [NONE] SOCIAL DETERMINANTS OF HEALTH: [NONE] LABS ORDERED: NONE REVIEWED AND INTERPRETED RESULTS: NONE IMAGING ORDERED: XR CHEST TREATMENTS ORDERED: SOLU-MEDROL 125MG IM, DUONEB 3MG INHL PROCEDURES PERFORMED: NONE CRITICAL CARE TIME: NONE I HAVE DISCUSSED THE PATIENT WITH THE ATTENDING PHYSICIAN DR. SHANNAN JUDGE AND SHE AGREES WITH THE PATIENT'S PLAN OF CARE AND DISPOSITION. BASED ON HISTORY OF PRESENT ILLNESS, AND PHYSICAL EXAM, PATIENT WILL BE DISCHARGED HOME. SHARED DECISION MAKING: PATIENT INSTRUCTED TO FOLLOW UP WITH PRIMARY CARE PROVIDER IN 1-2 DAYS FOR RE-EVALUATION OF SYMPTOMS. PATIENT VERBALIZES UNDERSTANDING TO RETURN TO ED FOR NEW OR WORSENING SYMPTOMS OR IF FOLLOW UP WITH PCP CANNOT BE OBTAINED. PATIENT FEELS COMFORTABLE GOING HOME AT THIS TIME. ALL QUESTIONS ADDRESSED AT TIME OF DISCHARGE. Images Reviewed?: Images reviewed and evaluated by me Time of 1ST Reevaluation: 12:05 Reevaluation 1ST: Improved Patient Education/Counseling: Diagnosis, Treatment, Need For Follow Up Family Education/Counseling: Diagnosis, Treatment, Need For Follow Up Medical Screening: No EMC Exist At This Time Departure 1 Departure Time of Disposition: 12:05 Impression: Primary Impression: COPD with chronic bronchitis Additional Impression: Morbid obesity Disposition: HOME / SELF CARE / HOMELESS Condition: Stable Additional Instructions: FOLLOW-UP WITH PCP IN 1 TO 2 DAYS. TAKE MEDICATION PRESCRIBED. RETURN TO ED FOR ANY NEW OR WORSENING SYMPTOMS. e-Prescriptions Benzonatate (Benzonatate) 200 Mg Cap 1 CAP PO TIDP, #30 CAP Prov: FLY CHOWDHURY 06/27/24 Prednisone (Prednisone) 20 Mg Tab 60 MG PO DAILY, #18 TAB Prov: FLY CHOWDHURY 06/27/24 Levofloxacin Hemihydrate (LEVAQUIN 500 MG) 500 Mg Tab 1 TAB PO DAILY, #10 TAB Prov: FLY CHOWDHURY 06/27/24 Discharged With: Self Critical Care Note Critical Care Time?: No Stability Stability form required: No Heart Score Heart Score: Heart Score Response (Comments) Value History N/A 0 EKG N/A 0 Age N/A 0 Risk Factors N/A 0 Troponin N/A 0 Total 0 I personally scribed for FLY CHOWDHURY ([email or web address]) on 06/27/24 at 11:23. Electr onically submitted by Arcadio Palmer ([email or web address]). I personally scribed for FLY CHOWDHURY ([email or web address]) on 06/27/24 at 11:45. Electron ically submitted by Arcadio Palemr ([email or web address]). FLY CHOWDHURY Jun 27, 2024 11:23
[2024-06-27] MEDS: methylPREDNISolone SOD SUCC 125 MG/2 ML VL IM ONE (11:35)
--- NOTE | 2024-06-27 11:36 | DVH ---
CHEST RADIOGRAPH Indication: COUGH Technique: Single frontal view of the chest was obtained COMPARISON: XY CHEST PORTABLE on DOS: 03/17/24 FINDINGS: Lines and Tubes: None Lungs: Clear Pleura: No effusion. No pneumothorax. Cardiomediastinal contours: Unremarkable Bones: Unremarkable IMPRESSION: No acute disease.
[2024-06-27] MEDS: IPRATROPIUM BROM 0.5 MG/2.5ML INH SOL NEB ONE (11:40)
[2024-06-27 11:41] VITALS: RESP 18; O2SAT 99
[2024-06-27] MEDS: ALBUTEROL SULF 2.5 MG/0.5ML(0.5%) NEB SOLN NEB ONE (11:41)
[2024-06-27] MEDS ORDERED: LEVO500T91 PO (12:07)
[2024-06-27] MEDS ORDERED: PRED20TA2 PO (12:07)
[2024-06-27] MEDS ORDERED: BENZ200C64 PO (12:07)
--- NOTE | 2024-06-27 16:34 | ECG ---
[facility] Test Date: 2024-06-27 Test Time: 10:50:37 Pat Name: CRISTINA LA Department: ER Room: Gender: Primer Supervisor: TRINA : 1980 Requested By: FLY CHOWDHURY Order Number: [id number] Reading MD: Johnathon Bobo Measurements Intervals [place] Rate: 85 P: 40 TN: 162 QRS: 59 QRSD: 91 T: 21 QT: 357 QTc: 425 Interpretive Statements Sinus rhythm Electronically Signed On 06-28-2024 18:46:43 PST by Johnathon Bobo Please click the below link to view image of tracing.
[2024-06-27] MEDS ORDERED: CLON-853 (17:07)
[2024-06-27] MEDS ORDERED: RISP4TAB53 (17:07)
[2024-06-27] MEDS ORDERED: PANT40T (17:07)
== END 2024-06-27 12:19 | disposition home or self-care (01) ==
LOC: EDBD 10:43 → ER 10:43
DX: J42 Unspecified chronic bronchitis (principal); E66.01 Morbid (severe) obesity due to excess calories; I10 Essential (primary) hypertension; Z68.43 Body mass index [BMI] 50.0-59.9, adult
CPT/HCPCS: 71045; 93005; 94640; 96372; 99283; J2919

== ENCOUNTER 2024-06-27 14:18 | Inpatient (IN) | payer OTHER, MEDICAID ==
[~2024-06-27] VITALS: Ht 180.3 cm; Wt 114.0 kg
[~2024-06-27 14:18] MED LIST changes: +BENZ200C64 PO; +LEVO500T91 PO; +PRED20TA2 PO
--- NOTE | 2024-06-27 15:52 | ED.PDOC ---
SOB-HPI HPI Comments 43-year-old male presents with a chief complaint of SOB. Patient was seen earlier today in [facility] and was D/C home, but states that he never left because "I didn't have a ride". Patient decided to check back in and state that he cannot breathe. Patient does not use supplemental oxygen. No acute distress noted at this time. Chief Complaint: Shortness of Breath Time Seen by MD: 15:20 Primary Care Provider: AMEE Reviewed notes: Medications, Allergies Information Source: Patient Mode of Arrival: Ambulatory Severity: Moderate Timing: Minutes Duration: Since onset Context: At Rest PE Risk Factors: None History of: COPD Prehospital treatment: None Modifying Factors: Inhaler Past Medical History PAST MEDICAL HISTORY: Asthma, COPD, Depression, High Lipids, HTN, Seizures, Thyroid Surgical History: Denies all surgeries Family History Family History: Reviewed,noncontributory to illness Social History Smoker: Non-Smoker Alcohol: Denies ETOH Use Drugs: Denies Drug Use Lives In: Home Constitutional: denies: chills, diaphoresis, fatigue, fever, malaise, sweats, weakness, others EENTM: denies: blurred vision, double vision, ear bleeding, ear discharge, ear drainage, ear pain, ear ringing, eye pain, eye redness, hearing loss, mouth pain, mouth swelling, nasal discharge, nose bleeding, nose congestion, nose pain, photophobia, tearing, throat pain, throat swelling, voice changes, others Respiratory: reports: shortness of breath; denies: cough, hemoptysis, orthopnea, SOB at rest, SOB with excertion, stridor, wheezing, others Cardiovascular: denies: chest pain, dizzy spells, diaphoresis, Dyspnea on exertion, edema, irregular heart beat, left arm pain, lightheadedness, palpitations, PND, syncope, others Gastrointestinal: denies: abdomen distended, abdominal pain, blood streaked bowels, constipated, diarrhea, dysphagia, difficulty swallowing, hematemesis, melena, nausea, poor appetite, poor fluid intake, rectal bleeding, rectal pain, vomiting, others Genitourinary: denies: burning, dysuria, flank pain, frequency, hematuria, incontinence, penile discharge, penile sore, pain, testicle pain, testicle swelling, urgency, others Neurological: denies: dizziness, fainting, headache, left sided numbness, left sided weakness, numbness, paresthesia, pre-existing deficit, right sided numbness, right sided weakness, seizure, speech problems, tingling, tremors, weakness, others Musculoskeletal: denies: back pain, gout, joint pain, joint swelling, muscle pain, muscle stiffness, neck pain, others Integumetry: denies: bruises, change in color, change in hair/nails, dryness, laceration, lesions, lumps, rash, wounds, others Allergic/Immunocompromised: denies: Difficulty Healing, Frequent Infections, Hives, Itching, others Hematologic/Lymphatic: denies: anemia, blood clots, easy bleeding, easy bruising, swollen glands, others Endocrine: denies: excessive hunger, excessive sweating, excessive thirst, excessive urination, flushing, intolerance to cold, intolerance to heat, unexplained weight gain, unexplained weight loss, others Psychiatric: denies: anxiety, bipolar disorder, depression, hopeless, panic disorder, schizophrenia, sleepless, suicidal, others All Other Systems: Reviewed and Negative Physical Exam General Appearance: No Apparent Distress, Obese HEENT: Normal ENT Inspection, Pharynx Normal, TMs Normal Neck: Full Range of Motion, Non-Tender, Normal, Normal Inspection Respiratory: Chest Non-Tender, Lungs Clear, No Accessory Muscle Use, No Respiratory Distress, Other (DIMINISHED BREATH SOUNDS) Cardiovascular: No Edema, No JVD, No Murmur, No Gallop, Normal Peripheral Puls es, Regular Rate/Rhythm Breast Exam: Deferred Gastrointestinal: No Organomegaly, Non Tender, No Pulsatile Mass, Normal Bowel Sounds, Soft Genitalia: Deferred Pelvic: Deferred Rectal: Deferred Extremities: No calf tenderness, Normal capillary refill, Normal inspection, Normal range of motion, Non-tender, No pedal edema Musculoskeletal : Apperance: Normal Neurologic: Alert, visual coordinator II-XII nml as Tested, No Motor Deficits, Normal Affect, Normal Mood, No Sensory Deficits Cerebellar Function: Normal Reflexes: Normal Skin: Dry, Normal Color, Warm Lymphatic: No Adenopathy Was a procedure done? Was a procedure done?: No Differential Dx Differential Diagnosis: Anxiety, Asthma, Bronchitis, COPD, Panic Attack, Pneumonia, Respiratory Distress, Sinusitis, Allergic Rhinitis, URI X-Ray, Labs, Meds, VS Vital Signs Date Time Temp Pulse Resp B/P (MAP) Pulse Ox O2 Delivery O2 Flow Rate FiO2 06/27/24 15:15 20 94 Room Air* 0 21 06/27/24 15:15 98.4 92 20 149/94 (678) 94 43-year-old male with a known history of COPD presents here with difficulty breathing. He was seen earlier today by ALIVIA Garcia and was discharged. However upon discharge patient return back to the ER and checked back in as he was having continued difficulty breathing and did not feel comfortable going back to the board and care facility. On my evaluation patient was clutching his chest. Reporting difficulty breathing. Patient had shallow breathing on my examination. Generally appeared that he did not feel well. I have reviewed the notes that were done Radha BUNCH on earlier today he was given breathing treatments in the emergency department chest x-ray was done, he was also discharged home with several prescriptions. I reviewed all imaging studies. At this time however he prefers to be admitted to the hospitalist. Hospitalist team has been contacted for admission. Time of 1ST Reevaluation: 16:00 Reevaluation 1ST: Unchanged Patient Education/Counseling: Diagnosis, Treatment, Prognosis Family Education/Counseling: Diagnosis, Treatment, Prognosis Departure 1 Departure Time of Disposition: 16:30 Impression: Primary Impression: COPD exacerbation Disposition: ADMITTED INPATIENT Condition: Fair Critical Care Note Critical Care Time?: No Stability Stability form required: No Heart Score Heart Score: Heart Score Response (Comments) Value History N/A 0 EKG N/A 0 Age N/A 0 Risk Factors N/A 0 Troponin N/A 0 Total 0 I personally scribed for JAN SORIANO MD ([email or web address]) on 06/27/24 at 15:52. Electronically submitted by Abiodun Payton ([email or web address]). I personally scribed for JAN SORIANO MD ([email or web address]) on 06/27/24 at 15:57. Electronically submitted by Abiodun Payton ([email or web address]). I personally scribed for JAN SORIANO MD ([email or web address]) on 06/27/24 at 16:00. Electronically submitted by Abiodun Payton ([email or web address]). JAN SORIANO MD Jun 27, 2024 15:52
[2024-06-27] MEDS ORDERED: PANT40T (17:07)
[2024-06-27] MEDS ORDERED: CLON-853 (17:07)
[2024-06-27] MEDS ORDERED: RISP4TAB53 (17:07)
[2024-06-27] MEDS ORDERED: ONDANSETRON HCL 4 MG/2 ML VIAL IV PRN (17:15)
[2024-06-27] MEDS ORDERED: DOCUSATE SOD 100 MG CAP PO PRN (17:15)
--- NOTE | 2024-06-27 17:17 | DVHHP2 ---
History of Present Illness Reason for Visit: Shortness of breaths History of Present Illness Patient was a 43-year-old male presenting to the emergency room with reports of shortness of breath. Patient states that he has a shortness of breath has been worsening over the past two days. Patient was seen in the emergency room, and after being discharged, had worsening shortness of breath and wheezing. At the time of assessment, the patient does have some inspiratory wheezing. Chest x- ray is unremarkable. He was also found to be tachycardic with a heart rate of 118. Significant history of the patient includes cognitive delay, seizure disorder, and COPD. 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 Past Surgical History: None Family History: None Smoke: No ALCOHOL: none Drugs: None Lives: Other (Residential facility) Review of Systems Constitutional: No: Fever, Chills, Sweats, Weakness, Malaise, Other Eyes: No: Pain, Vision change, Conjunctivae inflammation, Eyelid inflammation, Other, Redness ENT: No: Ear pain, Ear discharge, Nose pain, Nose discharge, Nose congestion, Mouth pain, Mouth swelling, Throat pain, Throat swelling, Other Respiratory: Cough, Shortness of breath; No: Dry, SOB with excertion, Wheezing, Hemoptysis, Pleuritic Pain, Sputum, Wheezing, Other Cardiovascular: No: Chest Pain, Palpitations, Orthopnea, Paroxysmal Noc. Dyspnea, Edema, Lt Headedness, Other Gastrointestinal: No: Nausea, Vomiting, Abdominal Pain, Diarrhea, Constipation, Melena, Hematochezia, Other Genitourinary: No Dysuria, No Frequency, No Incontinence, No Hematuria, No Retention, No Other Musculoskeletal: No: other, neck pain, shoulder pain, arm pain, back pain, hand pain, leg pain, foot pain Skin: No: Rash, Lesions, Jaundice, Bruising, Other Neurological: No: Weakness, Numbness, Incoordination, Change in speech, Confusion, Seizures, Other Allergies: Coded Allergies: Brompheniramine (Verified Allergy, Severe, 06/21/24) Paliperidone (Verified Allergy, Severe, 12/11/16) Risperidone (Verified Allergy, Severe, 12/11/16) Ondansetron (Unverified Allergy, Unknown, NAUSEA, 10/29/17) Sulfamethoxazole w/Trimethoprim (Verified Allergy, Unknown, 12/11/16) Medications Current Medications Medications Dose Ordered Sig/Savana Route Start Time Stop Time Status Last Admin Dose Admin Acetaminophen 500 mg Q8HP PRN PO 06/27/24 17:15 UNV Ondansetron HCl 4 mg Q6HP PRN IV 06/27/24 17:15 UNV Docusate Sodium 100 mg BID PRN PO 06/27/24 17:15 UNV Albuterol 2.5 mg Q4HPRN PRN NEB 06/27/24 17:15 UNV Ipratropium [place] 0.5 mg Q4HPRN PRN NEB 06/27/24 17:15 UNV Clonazepam 0.5 mg DAILY PO 06/28/24 10:00 UNV Divalproex Sodium 250 mg DAILY PO 06/28/24 10:00 UNV Tamsulosin HCl 0.4 mg HS PO 06/27/24 22:00 UNV Patient Own Medication 1 cap TIDP PO 06/27/24 22:00 UNV Risperidone 4 mg DAILY PO 06/28/24 10:00 UNV Exam Vital Signs Vital Signs Date Time Temp Pulse Resp B/P (MAP) Pulse Ox O2 Delivery O2 Flow Rate FiO2 06/27/24 15:15 20 94 Room Air* 0 21 06/27/24 15:15 98.4 92 149/94 (112) General Appearance: Alert, Oriented X3, Cooperative HEENT: Atraumatic, PERRLA Respiratory: Normal air movement, Other (Wheezing) Cardiovascular: Normal S1, Normal S2, Other (Tachycardia) Skin: No rashes, No breakdown Psych/Mental Status: Mental status NL, Mood NL Assessment/Plan Assessment/Plan Impression: -COPD exacerbation -cognitive delay -seizure disorder -obesity -? Behavioral condition Plan: -admit to Medical/Surgical unit -restart home medications -bronchodilators -social service consultation for discharge planning -CMP, with CBC -hold lisinopril at this time,? Etiology for cough and shortness of breath Total time spent with patient discussing and formulating plan of care: 35 minutes. This medical document was created using an electronic medical record system with [employer] system. Although this document has been carefully reviewed, there may still be some phonetic and typographical errors. These a reas are purely typographical due to imperfections of the software programs, and do not reflect any compromise in the patient's medical care. Plan discussed with: Patient, Other (RN) My Orders Orders - CASSY MICHELE ZOO DIRECTOR Procedure Category Date Status Time Complete Blood Count LAB 06/27/24 Logged 17:01 Comprehensive LAB 06/27/24 Logged Metabolic Panel 17:01 Troponin-I Hs LAB 06/27/24 Logged 17:01 Erythrocyte LAB 06/27/24 Logged Sedimentation Rate 17:01 C-Reactive Protein LAB 06/27/24 Logged 17:01 Admit ADMIT 06/27/24 Transmitted 17:01 Oxygen By Nasal RT 06/27/24 Transmitted Cannula 17:01 Hemoglobin A1c LAB 06/27/24 Logged 17:01 Acetaminophen Tab Or PHA 06/27/24 Logged Cap (Tylenol Tablet 17:15 Ondansetron Hcl PHA 06/27/24 Logged (Zofran) 17:15 Docusate Sodium PHA 06/27/24 Logged Capsule (Colace 17:15 Albuterol Medneb PHA 06/27/24 Logged (Ventolin Medneb) 17:15 Ipratropium Medneb PHA 06/27/24 Logged (Atrovent Medneb) 17:15 Clonazepam Tablet PHA 06/28/24 Logged (Klonopin Tablet) 10:[address] Tablet PHA 06/28/24 Logged (Depakote "Dr" Tabl 10:00 Tamsulosin PHA 06/27/24 Logged Hydrochloride (Flomax) 22:00 (Nf) Benzonatate PHA 06/27/24 Logged 22:00 Risperidone Tablet PHA 06/28/24 Logged (Risperdal Tablet) 10:00 Valproic Acid LAB 06/27/24 Logged (Depakene) 17:09 Regular Diet DIET 06/27/24 Transmitted Dinner Date of Service: Jun 27, 2024 Billing Provider: CASSY MICHELE ZOO DIRECTOR Common Visit Codes: [id number] INP/OBS CARE (HIGH) CASSY MICHELE NP Jun 27, 2024 17:17
[2024-06-27 18:01] VITALS: O2SAT 93
[2024-06-27 18:19] LABS: Hematocrit 43.7 % (41.0-53.0); Hemoglobin 14.4 g/dL (13.5-17.5); Mean Corpuscular Hemoglobin 28.2 pg (28.0-32.0); Mean Corpuscular Hgb Conc. 33.1 g/dL (32.0-36.0); Mean Corpuscular Volume 85.1 fL (80.0-100.0); Platelet Count (auto) 201 10^3/uL (140-450); Red Blood Cells 5.13 10^6/uL (4.5-5.90); Red Cell Distribution Width 16.2 % (11.8-14.3); White Blood Cell 7.6 10^3/uL (4.4-10.8)
[2024-06-27 18:24] VITALS: PULSE 90; RESP 20; O2SAT 96
[2024-06-27 18:32] LABS: Band Neutrophils % (manual) 0; Basophils % (manual) 0 (0.0-2.0); Blast Cells 0; Eosinophils % (manual) 0 (0-7); Metamyelocytes % 0; Myelocytes % 0; Promyelocytes % 0; Reactive Lymphocytes 0
[2024-06-27 18:47] LABS: Albumin 4.6 g/dL (3.2-4.8); Alkaline Phosphatase 94 U/L (46-116); Anion Gap 13 (5-15); BUN/Creatinine Ratio 13.7 (10.0-20.0); Blood Urea Nitrogen 13 mg/dL (9-23); Carbon Dioxide 23 mmol/L (20-31); Chloride 103 mmol/L (98-107); Potassium 4.6 mmol/L (3.5-5.1); Sodium 139 mmol/L (136-145)
[2024-06-27 19:00] LABS: Alanine Aminotransferase 45 U/L (7-40); Aspartate Aminotransferase 68 U/L (13-40); Bilirubin, Total 0.3 mg/dL (0.2-1.0); CRP High Sensitivity 1.52 mg/dL (<1.0); Glucose 177 mg/dL (74-106); Total Protein 8.3 g/dL (5.7-8.2)
[2024-06-27 19:04] VITALS: BP 149/94; PULSE 92; RESP 20; TEMP 98.4; O2SAT 94
[2024-06-27 19:11] LABS: Erythrocyte Sedimentation Rate 14 mm/hr (0-20)
[2024-06-27 19:24] LABS: Lymphocytes % (manual) 10 (10.0-50.0); Monocytes % (manual) 1 (0-12); Platelet Estimate Adequate
[2024-06-27] MEDS: BENZONATATE PO SCH (22:00)
[2024-06-27] MEDS: TAMSULOSIN HYDROCHLORIDE 0.4 MG CAP PO SCH (23:17)
[2024-06-27 23:40] VITALS: BP 155/83; PULSE 86; RESP 18; TEMP 97.8; O2SAT 94
[2024-06-28] VITALS (11 sets, daily range): BP systolic 128–147; BP diastolic 68–89; PULSE 75–97; RESP 12–20; TEMP 97.9–98.7; O2SAT 94–99
[2024-06-28] MEDS: risperiDONE 1 MG TAB PO SCH (09:39)
[2024-06-28] MEDS: clonazePAM 0.5 MG TAB PO SCH (09:39)
[2024-06-28] MEDS: LORazepam 2MG/ML-1ML VIAL IV PRN (14:05)
[2024-06-28] MEDS: levETIRAcetam 1000 mg/100ml 100 ML IV ONE ×2 (14:13→14:51)
[2024-06-28] MEDS: LORazepam 2MG/ML-1ML VIAL ONE ×2 (14:23)
[2024-06-28 14:59] LABS: Alanine Aminotransferase 35 U/L (7-40); Alkaline Phosphatase 82 U/L (46-116); Anion Gap 7 (5-15); Aspartate Aminotransferase 33 U/L (13-40); BUN/Creatinine Ratio 15.6 (10.0-20.0); Blood Urea Nitrogen 17 mg/dL (9-23); Calcium 9.5 mg/dL (8.7-10.4); Chloride 103 mmol/L (98-107); Magnesium 1.8 mg/dL (1.6-2.6); Sodium 141 mmol/L (136-145); Total Protein 7.2 g/dL (5.7-8.2)
[2024-06-28 15:00] LABS: Albumin 4.1 g/dL (3.2-4.8); Phosphorus 4.3 mg/dL (2.4-5.1)
[2024-06-28 15:03] LABS: Bilirubin, Total 0.2 mg/dL (0.2-1.0); Carbon Dioxide 31 mmol/L (20-31); Glucose 140 mg/dL (74-106)
--- NOTE | 2024-06-28 16:15 | DVH ---
EXAM: CT HEAD WITHOUT CONTRAST INDICATION: SEIZURES TECHNIQUE: CT of the head without intravenous contrast. Radiation Dose : 1. Head: CT Dose: CTDI volume is 71 mGy. Dose-length product is 1250 mGy*cm The dose indicators for CT are the volume Computed Tomography (CT) Dose Index (CTDIvol) and the Dose Length Product (DLP), and are measured in units of mGy and mGy-cm, respectively. These indicators are not patient dose, but values generated from the CT scanner acquisition factors. The report includes radiation exposure data for exposures received during this examination. COMPARISON: None Comments: Evaluation is limited by motion and beam hardening artifact, worst near the skull base and posterior fossa. FINDINGS: There is no evidence of acute intracranial hemorrhage, extra-axial collection, mass effect, midline s hift, herniation or hydrocephalus. The ventricles, sulci and cisterns are age appropriate. Mild asymmetry of the lateral ventricles (lef t larger than right) may be normal variant. The ludwig-white differentiation is intact. Patchy periventricular and subcortical white matter hypoattenuation is nonspecific but may be related to small vessel ischemic disease. The visualized paranasal sinuses and mastoid air cells are clear. Calvarium is intact. 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 IMPRESSION: 1. No evidence of acute intracranial abnormalities. Consider MRI if indicated for further workup of s eizure. 2. Hyperostosis along the inner table of the calvarium is likely a normal variant. Radiation optimization: All CT scans at this facility use at least one of these dose optimization kamila hniques: automated exposure control mA and/or kV adjustment per patient size (includes targeted exam s where dose is matched to clinical indication) or iterative reconstruction.
[2024-06-28] MEDS: ALBUTEROL SULF 2.5 MG/0.5ML(0.5%) NEB SOLN NEB PRN (18:16)
[2024-06-28] MEDS: IPRATROPIUM BROM 0.5 MG/2.5ML INH SOL NEB PRN (18:16)
[2024-06-28] MEDS: levETIRAcetam 500 mg/100ml 100 ML IV SCH (22:31)
--- NOTE | 2024-06-28 23:39 | DVHPN2 ---
Subjective 3/2-patient called code assessed called due to seizure concern. Patient evaluated he was not able to speak but is able to track people around him but then has couple episodes weak here where he was nonresponsive but on drop-arm test he was able to maintain posture almost cataplexy type. Patient is given 2 mg IV Ativan and 1 g load of Keppra. Thereafter he returns to normal baseline., appears head he has some recollection of the episode. This episode is atypical of seizure-like activity. Reviewed: H&P Changes from previous H/P or p: No Changes General: Per HPI Eyes: No Pain, No Vision change, No Conjunctivae inflammation, No Eyelid inflammation, No Other, No Redness ENT: No Ear pain, No Ear discharge, No Nose pain, No Nose discharge, No Nose congestion, No Mouth pain, No Mouth swelling, No Throat pain, No Throat swelling, No Other Cardiovascular: No Chest Pain, No Palpitations, No Orthopnea, No Paroxysmal Noc. Dyspnea, No Edema, No Lt Headedness, No Other Respiratory: Cough; No Dry; Shortness of breath; No SOB with excertion, No Wheezing, No Hemoptysis, No Pleuritic Pain, No Sputum, No Other Gastrointestinal: No Nausea, No Vomiting, No Abdominal Pain, No Diarrhea, No Constipation, No Melena, No Hematochezia, No Other Genitourinary: No Dysuria, No Frequency, No Incontinence, No Hematuria, No Retention, No Other Musculoskeletal: No other, No neck pain, No shoulder pain, No arm pain, No back pain, No hand pain, No leg pain, No foot pain Skin: No Rash, No Lesions, No Jaundice, No Bruising, No Other Objective Vitals Vital Signs Date Time Temp Pulse Resp B/P (MAP) Pulse Ox O2 Delivery O2 Flow Rate FiO2 06/28/24 21:00 98.4 75 20 135/88 (104) 98 98.4 06/28/24 18:16 Nasal Cannula* 1 24 Exam GEN: Obese individual under mild distress HEENT: NC/AT; MMM. CV: RRR, no m/r/g. LUNGS: CTAB, no w/r/c. ABD: Soft, NT/ND, NBS, no masses or organomegaly. EXT: skin Warm, well perfused. no rashes. No clubbing, cyanosis, or edema. NEURO: Ambulating with no limitations. No focal deficits. Medications Current Medications Medications Dose Ordered Sig/[place]ana Route Start Time Stop Time Status Last Admin Dose Admin Acetaminophen 500 mg Q8HP PRN PO 06/27/24 17:15 Ondansetron HCl 4 mg Q6HP PRN IV 06/27/24 17:15 Docusate Sodium 100 mg BID PRN PO 06/27/24 17:15 Albuterol 2.5 mg Q4HPRN PRN NEB 06/27/24 17:15 06/28/24 18:16 2.5 MG Ipratropium [place] 0.5 mg Q4HPRN PRN NEB 06/27/24 17:15 06/28/24 18:16 0.5 MG Clonazepam 0.5 mg DAILY PO 06/28/24 10:00 06/28/24 09:39 0.5 MG Divalproex Sodium 250 mg DAILY PO 06/28/24 10:00 06/28/24 09:40 250 MG Tamsulosin HCl 0.4 mg HS PO 06/27/24 22:00 06/28/24 22:31 0.4 MG Patient Own Medication 1 cap TIDP PO 06/27/24 22:00 Risperidone 4 mg DAILY PO 06/28/24 10:00 06/28/24 09:39 4 MG Lorazepam 1 mg Q5MINP PRN IV 06/28/24 14:15 06/28/24 14:10 1 MG Levetiracetam 100 ml @ 400 mls/hr BID IV 06/28/24 22:00 06/28/24 22:31 400 MLS/HR Laboratory Results Laboratory Tests 06/27/24 17:32 06/28/24 14:23 Chemistry Test 06/28/24 14:23 Albumin 4.1 g/dL (3.2-4.8) Calcium Level 9.5 mg/dL (8.7-10.4) Magnesium Level 1.8 mg/dL (1.6-2.6) Phosphorus Level 4.3 mg/dL (2.4-5.1) Total Protein 7.2 g/dL (5.7-8.2) LFT Test 06/28/24 14:23 Alanine Aminotransferase (ALT) 35 U/L (7-40) Alkaline Phosphatase 82 U/L (46-116) Aspartate Amino Transferase (AST) 33 U/L (13-40) Total Bilirubin 0.2 mg/dL (0.2-1.0) Labs and/or images reviewed: Labs reviewed by me, Image(s) reviewed by me Assessment/Plan Assessment/Plan 06/28-patient called code assessed called due to seizure concern. Patient evaluated he was not able to speak but is able to track people around him but then has couple episodes weak here where he was nonresponsive but on drop-arm test he was able to maintain posture almost cataplexy type. Patient is given 2 mg IV Ativan and 1 g load of Keppra. Thereafter he returns to normal baseline., appears head he has some recollection of the episode. This episode is atypical of seizure-like activity. Nonresponsive episodes, possible breakthrough seizure, seizure rule out Acute exacerbation of chronic COPD Cognitive delay Seizure disorder Obesity - social service consultation for discharge planning - restart home medications - bronchodilators - for breakthrough seizure continue home meds, status post 1 g Keppra IV load, continue IV Keppra 500 IV b.i.d. thereafter, neurology consulted - hold lisinopril at this time,? Etiology for cough and shortness of breath - q.4 H neuro checks Diet regular DVT prophylaxis-SCDs, GI prophylaxis tolerating diet fall risk precautions Med surge - one-to-one sitter Full code Plan discussed with: Patient My Orders Orders - ADITI COTO MD Procedure Category Date Status Time Lorazepam 2mg/Ml Inj PHA 06/28/24 In Process (Ativan Inj) 14:[address] 06/28/24 Resulted 14:26 Prolactin LAB 06/28/24 In Process 14:28 Levetiracetam 500 PHA 06/28/24 In Process Mg/100ml (Levetiraceta 22:00 * Neurology Consult CONS 06/28/24 Transmitted 17:47 Date of Service: Jun 28, 2024 Billing Provider: ADITI COTO MD Common Visit Codes: [id number] INP/OBS CARE(HIGH) ADITI COTO MD Jun 28, 2024 23:39
[2024-06-29] VITALS (9 sets, daily range): BP systolic 131–140; BP diastolic 82–95; PULSE 71–93; RESP 17–20; TEMP 97.8–98.5; O2SAT 94–100
[2024-06-29] MEDS: ACETAMINOPHEN 500 MG TAB or CAP PO PRN (11:32)
--- NOTE | 2024-06-29 14:28 | DVHPN2 ---
Subjective Update 06/29 06/28-patient called code assessed called due to seizure concern. Patient evaluated he was not able to speak but is able to track people around him but then has couple episodes weak here where he was nonresponsive but on drop-arm test he was able to maintain posture almost cataplexy type. Patient is given 2 mg IV Ativan and 1 g load of Keppra. Thereafter he returns to normal baseline., appears head he has some recollection of the episode. This episode is atypical of seizure-like activity. 06/29-patient is back to his baseline, no further evidence of seizure like activity. Neurology is consulted to be evaluated today. Patient was becoming agitated and spitting/throwing things at staff. We will utilize anxiety control medications to control behavior. Reviewed: H&P Changes from previous H/P or p: No Changes General: Per HPI Eyes: No Pain, No Vision change, No Conjunctivae inflammation, No Eyelid inflammation, No Other, No Redness ENT: No Ear pain, No Ear discharge, No Nose pain, No Nose discharge, No Nose congestion, No Mouth pain, No Mouth swelling, No Throat pain, No Throat swelling, No Other Cardiovascular: No Chest Pain, No Palpitations, No Orthopnea, No Paroxysmal Noc. Dyspnea, No Edema, No Lt Headedness, No Other Respiratory: Cough; No Dry; Shortness of breath; No SOB with excertion, No Wheezing, No Hemoptysis, No Pleuritic Pain, No Sputum, No Other Gastrointestinal: No Nausea, No Vomiting, No Abdominal Pain, No Diarrhea, No Constipation, No Melena, No Hematochezia, No Other Genitourinary: No Dysuria, No Frequency, No Incontinence, No Hematuria, No Retention, No Other Musculoskeletal: No other, No neck pain, No shoulder pain, No arm pain, No back pain, No hand pain, No leg pain, No foot pain Skin: No Rash, No Lesions, No Jaundice, No Bruising, No Other Objective Vitals Vital Signs Date Time Temp Pulse Resp B/P (MAP) Pulse Ox O2 Delivery O2 Flow Rate FiO2 06/29/24 08:51 98.2 87 19 134/87 (103) 99 98.2 06/29/24 06:43 Nasal Cannula* 2 28 Intake/Output Intake and Output 06/29/24 07:00 Intake Total 500 ml Balance 500 ml Intake Oral 500 ml # Voids 1 Exam GEN: Obese individual under mild distress HEENT: NC/AT; MMM. CV: RRR, no m/r/g. LUNGS: CTAB, no w/r/c. ABD: Soft, NT/ND, NBS, no masses or organomegaly. EXT: skin Warm, well perfused. no rashes. No clubbing, cyanosis, or edema. NEURO: Ambulating with no limitations. No focal deficits. Medications Current Medications Medications Dose Ordered Sig/Savana Route Start Time Stop Time Status Last Admin Dose Admin Acetaminophen 500 mg Q8HP PRN PO 06/27/24 17:15 06/29/24 11:32 500 MG Ondansetron HCl 4 mg Q6HP PRN IV 06/27/24 17:15 Docusate Sodium 100 mg BID PRN PO 06/27/24 17:15 Albuterol 2.5 mg Q4HPRN PRN NEB 06/27/24 17:15 06/28/24 18:16 2.5 MG Ipratropium [place] 0.5 mg Q4HPRN PRN NEB 06/27/24 17:15 06/28/24 18:16 0.5 MG Clonazepam 0.5 mg DAILY PO 06/28/24 10:00 06/29/24 10:47 0.5 MG Divalproex Sodium 250 mg DAILY PO 06/28/24 10:00 06/29/24 10:46 250 MG Tamsulosin HCl 0.4 mg HS PO 06/27/24 22:00 06/28/24 22:31 0.4 MG Patient Own Medication 1 cap TIDP PO 06/27/24 22:00 Risperidone 4 mg DAILY PO 06/28/24 10:00 06/29/24 10:47 4 MG Lorazepam 1 mg Q5MINP PRN IV 06/28/24 14:15 06/28/24 14:10 1 MG Levetiracetam 100 ml @ 400 mls/hr BID IV 06/28/24 22:00 06/29/24 10:46 400 MLS/HR Laboratory Results Laboratory Tests 06/27/24 17:32 06/28/24 14:23 Labs and/or images reviewed: Labs reviewed by me, Image(s) reviewed by me Assessment/Plan Assessment/Plan 06/29-patient is back to his baseline, no further evidence of seizure like activity. Neurology is consulted to be evaluated today. Patient was becoming agitated and spitting/throwing things at staff. We will utilize anxiety control medications to control behavior. Nonresponsive episodes, possible breakthrough seizure, seizure rule out Acute exacerbation of chronic COPD Cognitive delay Seizure disorder Obesity behavioral disturbances - social service consultation for discharge planning - restart home medications - bronchodilators - for breakthrough seizure continue home meds, status post 1 g Keppra IV load, continue IV Keppra 500 IV b.i.d. thereafter, neurology consulted - hold lisinopril at this time,? Etiology for cough and shortness of breath - q.4 H neuro checks Neurology is consulted to be evaluated today. - for anxiety and behavior , We will utilize anxiety control medications to control behavior. Diet regular DVT prophylaxis-SCDs, GI prophylaxis tolerating diet fall risk precautions Med surge - one-to-one sitter Full code Plan discussed with: Patient My Orders Orders - ADITI COTO MD Procedure Category Date Status Time Head Without Contrast CT 06/28/24 Resulted 14:26 Levetiracetam 500 PHA 06/28/24 In Process Mg/100ml (Levetiraceta 22:00 * Neurology Consult CONS 06/28/24 Transmitted 17:47 Comprehensive LAB 06/30/24 Verified Metabolic Panel 04:00 Complete Blood Count LAB 06/30/24 Verified 04:00 Lorazepam 2mg/Ml Inj PHA 06/29/24 Verified (Ativan Inj) 14:30 Date of Service: Jun 29, 2024 Billing Provider: ADITI COTO MD Common Visit Codes: [id number] INP/OBS CARE(HIGH) ADITI COTO MD Jun 29, 2024 14:28
[2024-06-29] MEDS: LORazepam 2MG/ML-1ML VIAL IV PRN (14:40)
[2024-06-29] MEDS: LORazepam 2MG/ML-1ML VIAL ONE (14:40)
--- NOTE | 2024-06-29 23:23 | DVHINCON2 ---
Date of service: Jun 29, [address] Sarai Toussaint Reason for Consultation Breakthrough seizure History of Present Illness Mr. Alston is a 43 years old right-handed gentleman with a history of hypertension, dyslipidemia, hypothyroidism, asthma, COPD, depression, morbid obesity, at that time, he was alert, oriented x3, not a good historian. He claims that he came to the emergency room on 06/27/2024 for shortness breath, and he had seizure activity in the emergency room. According to our ER documentation, the patient was came to the hospital on 06/27/2024 with a chief company of [facility] [place] [facility], but the patient was could not leave because he had no right, and he returned to the emergency room, where the patient reports that he was about to have seizure and following that, he did not have a seizure attack, but apparently the patient was was responsive during the seizure attack, but he had an elevated prolactin level meanwhile He reports he has a seizure disorder since infancy, in that he was spells of generalized convulsion with loss of consciousness, and he claimed that he does not remember any of his seizure symptoms, he has had biting and incontinence during the seizure attacks, he does not remember but according to our record, he was on Depakote at home, in the hospital, he was given Keppra 500 mg b.i.d., Depakote 250 mg daily During this consultation, the patient was keeps saying he needs to be transferred to [facility] for better care for his seizure, during our conversation, he he suddenly stopped talking briefly, and then he said he needs to be transferred out because he is about to have a seizure RN note 06/28/2024 1350: PATIENT STATED "I'M STARTING TO SHAKE, I'M GOING TO HAVE A SEIZURE". ASSESSED PATIENT TO SHAKING BUT ABLE TO RESPOND. PAGED DR TOUSSAINT. AWAITING CALL BACK 06/28/2024 1400: DR TOUSSAINT AND MD RESIDENT MANTILLA AT BEDSIDE. PATIENT ASSESSED TO B EING SHAKING, EYES OPENED, RESPONDING AT THIS TIME. B/P 151/84, HR 113, O2 97% ON 3LN/C 06/28/2024 1405: FIRST DOSE OF ATIVAN GIVEN, DR TOUSSAINT AND MD RESIDENT MANTILLA STILL AT BEDSIDE. PATIENT UNRESPONSIVE, CODE ASSIST CALLED Valproic acid, 06/27/2024: 82.8 CBC, 06/27/2024: Unremarkable CMP, 06/28/2024: Unremarkable HGB A1c, 06/27/2024: 7 Prolactin, 06/29/2019 09/09/24 1423: 37.99 CT head, 06/28/2024: 1. No evidence of acute intracranial abnormalities. Consider MRI if indicated for further workup of seizure. 2. Hyperostosis along the inner table of the calvarium is likely a normal variant Past Medical History Hypertension, dyslipidemia, hypothyroidism, asthma, COPD, depression, morbid obe sity Past Surgical History No major surgeries Family History: Diabetes mellitus G8 FATHER Family History Diabetes Social History He has no history of smoking, alcohol or drug abuse Allergies: Coded Allergies: Brompheniramine (Verified Allergy, Severe, 06/21/24) Paliperidone (Verified Allergy, Severe, 12/11/16) Ondansetron (Unverified Allergy, Unknown, NAUSEA, 10/29/17) Sulfamethoxazole w/Trimethoprim (Verified Allergy, Unknown, 12/11/16) Home Meds Active Scripts Benzonatate (Benzonatate) 200 Mg Cap, 1 CAP PO TIDP, #30 CAP Prov:FLY CHOWDHURY 06/27/24 Prednisone (Prednisone) 20 Mg Tab, 60 MG PO DAILY, #18 TAB Prov:FLY CHOWDHURY 06/27/24 Levofloxacin Hemihydrate (LEVAQUIN 500 MG) 500 Mg Tab, 1 TAB PO DAILY, #10 TAB Prov:FLY CHOWDHURY 06/27/24 Dicyclomine Hcl (BENTYL CAPSULE) 10 Mg Cp, 1 CAP PO Q6HPRN PRN for 10 Days, #40 CAP 3 Refills Prov:BRITTANY COSBY MD 06/21/24 Loperamide Hcl (Imodium) 2 Mg Cp, 2 MG PO Q6HP PRN for 7 Days, #30 CAP 1 Refill Prov:BRITTANY COSBY MD 06/21/24 Ondansetron HCl (Ondansetron Hydrochloride) 8 Mg Tab, 8 MG PO Q6HP PRN for 7 Days, #28 TAB 1 Refill Prov:BRITTANY COSBY MD 06/21/24 Ciprofloxacin Hcl (Cipro) 500 Mg Tab, 1 TAB PO BID, #20 TAB Prov:ISAMAR HER MD 06/06/24 Reported Medications Pantoprazole Sodium Sesquihydr (Pantoprazole Sodium) 40 Mg Tab, 1 DAILY 06/27/24 Clonazepam (Clonazepam) 1 Mg Tab, 1 06/27/24 Risperidone (Risperidone) 4 Mg Tab 06/27/24 Quetiapine Fumerate (QUETIAPINE FUMARATE) 400 Mg Tab, 1 06/05/24 Fluticasone Propionate (Nasal) (Fluticasone Propionate) 50 Mcg/Act Spr, ANNETTA 06/05/24 Tamsulosin Hcl (Tamsulosin Hcl) 0.4 Mg Cap 06/05/24 Hydroxyzine Hcl (Hydroxyzine Hcl) 50 Mg Tab, 1 06/05/24 Terbinafine Hcl (Terbinafine Hcl) 250 Mg Tab, 1 DAILY 06/05/24 Olanzapine (OLANZAPINE) 10 Mg Tab, 1 06/05/24 Furosemide (Furosemide) 20 Mg Tab, 1 DAILY 06/05/24 Divalproex Sodium (Divalproex Sodium Dr) 500 Mg Tab, 1 TAB PO TID 03/17/24 Divalproex Sodium (Divalproex Sodium Dr) 250 Mg Tab, TAB PO 03/17/24 Clonazepam (Clonazepam) 0.5 Mg Tab, TAB PO 03/17/24 Divalproex Sodium (Divalproex Sodium Dr) 500 Mg Tab, 1 TAB PO TID 03/17/24 Divalproex Sodium (Divalproex Sodium Dr) 250 Mg Tab, TAB PO 03/17/24 Clonazepam (Clonazepam) 0.5 Mg Tab, TAB PO 03/17/24 Current Medications Current Medications Medications (Trade) Dose Ordered Sig/Savana Route PRN Reason Start Time Stop Time Status Last Admin Lorazepam (Ativan Inj) 2 mg Q3HP PRN IV ANXIETY 06/29/24 14:30 06/29/24 23:08 Review of Systems As above, the other systems are negative Vital Signs Vital Signs Date Time Temp Pulse Resp B/P (MAP) Pulse Ox O2 Delivery O2 Flow Rate FiO2 06/29/24 21:00 98.1 90 17 131/82 (98) 100 98.1 06/29/24 19:45 Room Air* 0 21 Physical Exam GENERAL EXAM: General: the patient is well developed and nourished. No acute distress. HEENT: Normocephalic, neck is supple, no carotid bruits. No mass. RESPIRATORY: Normal respiratory effort with symmetrical lung expansion. Lungs clear to auscultation. CARDIOVASCULAR: Regular rate and rhythm with no murmurs. S1, S2. ABDOMEN: Soft, nontender, normal bowel sound NEUROLOGICAL: MENTAL STATUS: Awake and alert. Oriented to person, place, time, able to provide information SPEECH, LANGUAGE, HIGHER CORTICAL FUNCTION: no aphasia or dysathria. CRANIAL NERVES: #2: Intact visual mcgarry to confrontation. The optic discs were sharp. #3,4,6: Pupils are equal, round and reactive. EOMs full and conjugate. No nystag mus. #5: Facial sensation intact in all three divisions bilaterally. Mandibular strength intact. #7: Facial muscles symmetrical and strength intact. #8: Hearing grossly normal to voice. #9,10: Uvula and soft palate rise in the midline. Swallow and voice are normal. #11: Trapezius and sternomastoid strength intact bilaterally. #12: Tongue midline. No fasciculations or atrophy. SENSATION: Sensation to touch and pinprick is normal. MOTOR: Normal tone in the upper and lower extremity. Normal muscle bulk. No fasciculations. No abnormal movements or posturing. Muscle strength of the major groups in the upper extremities is 3-4/5. Muscle strength of the major groups in the lower extremities is 2/5. REFLEXES: Deep tendon reflexes are symmetrical. No pathological reflexes. CEREBELLAR/COORDINATION: Finger to nose is fine bilaterally. GAIT/STATION: deferred. Labs/Diagnostic Data Labs Test 06/28/24 14:23 06/28/24 14:06 06/27/24 17:32 Range/Units Sodium Level 141 136-145 mmol/L Potassium Level 4.0 3.5-5.1 mmol/L Chloride Level 103 98-107 mmol/L Carbon Dioxide Level 31 20-31 mmol/L Anion Gap 7 5-15 Blood Urea Nitrogen 17 9-23 mg/dL Creatinine 1.09 0.700-1.30 mg/dL Glomerular Filtration Rate Calc 87 >90 mL/min BUN/Creatinine Ratio 15.6 10.0-20.0 Serum Glucose 140 H 74-106 mg/dL Calcium Level 9.5 8.7-10.4 mg/dL Phosphorus Level 4.3 2.4-5.1 mg/dL Magnesium Level 1.8 1.6-2.6 mg/dL Total Bilirubin 0.2 0.2-1.0 mg/dL Aspartate Amino Transferase (AST) 33 13-40 U/L Alanine Aminotransferase (ALT) 35 7-40 U/L Alkaline Phosphatase 82 46-116 U/L Creatine Kinase 42 L 46-171 U/L Total Protein 7.2 5.7-8.2 g/dL Albumin 4.1 3.2-4.8 g/dL Prolactin 37.99 H 2.1-17.7 ng/mL POC Glucose 159 H 70-106 mg/dl White Blood Count 7.6 # 4.4-10.8 10^3/uL Red Blood Count 5.13 4.5-5.90 10^6/uL Hemoglobin 14.4 # 13.5-17.5 g/dL Hematocrit 43.7 # 41.0-53.0 % Mean Corpuscular Volume 85.1 80.0-100.0 fL Mean Corpuscular Hemoglobin 28.2 28.0-32.0 pg Mean Corpuscular Hemoglobin Concent 33.1 32.0-36.0 g/dL Red Cell Distribution Width 16.2 H 11.8-14.3 % Platelet Count 201 140-450 10^3/uL Mean Platelet Volume 7.4 6.9-10.8 fL Neutrophils (%) (Auto) 37.0-80.0 % Lymphocytes (%) (Auto) 10.0-50.0 % Monocytes (%) (Auto) 0.0-12.0 % Basophils (%) (Auto) 0.0-2.0 % Neutrophils # (Auto) 1.6-8.6 10 ^3/uL Lymphocytes # (Auto) 0.4-5.4 10 ^3/uL Monocytes # (Auto) 0-1.3 10 ^3/uL Differential Total Cells Counted 100.0 100 Neutrophils % (Manual) 89 H 37.0-80.0 Band Neutrophils % (Manual) 0 Lymphocytes % (Manual) 10 10.0-50.0 Monocytes % (Manual) 1 0-12 Eosinophils % (Manual) 0 0-7 Basophils % (Manual) 0 0.0-2.0 Metamyelocytes % (manual) 0 Myelocytes % (Manual) 0 Promyelocytes % (Manual) 0 Blast Cells % (Manual) 0 Reactive Lymphocytes 0 Platelet Estimate Adequate Erythrocyte Sedimentation Rate 14 0-20 mm/hr Hemoglobin A1c 7.0 H <5.7 % A1C Troponin I High Sensitivity < 3 L </=54 ng/L C-Reactive Protein High Sensitivity 1.52 H <1.0 mg/dL Valproic Acid Level 82.8 50-100 ug/mL Assessment Hypertension, dyslipidemia, hypothyroidism, asthma, COPD, depression, morbid obesity No major surgeries He does not remember major medical problem in the family He has no history of smoking, alcohol or drug abuse As above, the other systems are negative GENERAL EXAM: General: the patient is well developed and nourished. No acute distress. HEENT: Normocephalic, neck is supple, no carotid bruits. No mass. RESPIRATORY: Normal respiratory effort with symmetrical lung expansion. Lungs clear to auscultation. CARDIOVASCULAR: Regular rate and rhythm with no murmurs. S1, S2. ABDOMEN: Soft, nontender, normal bowel sound NEUROLOGICAL: MENTAL STATUS: Awake and alert. Oriented to person, place, time, able to provide information SPEECH, LANGUAGE, HIGHER CORTICAL FUNCTION: no aphasia or dysathria. CRANIAL NERVES: #2: Intact visual mcgarry to confrontation. The optic discs were sharp. #3,4,6: Pupils are equal, round and reactive. EOMs full and conjugate. No nystagmus. #5: Facial sensation intact in all three divisions bilaterally. Mandibular strength intact. #7: Facial muscles symmetrical and strength intact. #8: Hearing grossly normal to voice. #9,10: Uvula and soft palate rise in the midline. Swallow and voice are normal. #11: Trapezius and sternomastoid strength intact bilaterally. #12: Tongue midline. No fasciculations or atrophy. SENSATION: Sensation to touch and pinprick is normal. MOTOR: Normal tone in the upper and lower extremity. Normal muscle bulk. No fasciculations. No abnormal movements or posturing. Muscle strength of the major groups in the upper extremities is 3-4/5. Muscle strength of the major groups in the lower extremities is 2/5. REFLEXES: Deep tendon reflexes are symmetrical. No pathological reflexes. CEREBELLAR/COORDINATION: Finger to nose is fine bilaterally. GAIT/STATION: deferred. This is a long and complicated consultation Seizure activity I suspect some of his seizure could be nonepileptic/psychogenic Morbid obesity Elevated troponin level ? Secondary to seizure ? Pituitary adenoma Plan/Recommendation Monitoring Supportive treatment EEG MRI pituitary Keppra 500 mg b.i.d., this may be better medication for seizure control unless he has said effects Valproic acid 250 mg daily Ativan for seizure breakthrough Avoid Depakote for seizure control (he was morbid obesity) More recommendation per clinical course Prognosis: Poor This medical document was created using an electronic medical record system with [employer] dictation system. Although this document has been carefully reviewed, there may still be some phonetic and typographical errors. These areas are purely typographical due to imperfections of the software programs, and do not reflect any compromise in the patient's medical care. Plan discussed with: Other CAMELIA SUTTON MD Jun 29, 2024 23:23
[2024-06-30] MEDS ORDERED: LORazepam 2MG/ML-1ML VIAL IV PRN
[2024-06-30 01:00] VITALS: BP 139/82; PULSE 85; RESP 18; TEMP 97.8; O2SAT 96
[2024-06-30 05:00] VITALS: BP 133/82; PULSE 87; RESP 19; TEMP 98; O2SAT 95
[2024-06-30 06:00] LABS: Basophils # (auto) 0 10 ^3/uL (0-0.2); Basophils % (auto) 0.8 % (0.0-2.0); Eosinophils # (auto) 0.1 10 ^3/uL (0-0.8); Hematocrit 38.8 % (41.0-53.0); Hemoglobin 12.9 g/dL (13.5-17.5); Lymphocytes # (auto) 1.3 10 ^3/uL (0.4-5.4); Lymphocytes % (auto) 26.7 % (10.0-50.0); Mean Corpuscular Hemoglobin 28.7 pg (28.0-32.0); Mean Corpuscular Hgb Conc. 33.1 g/dL (32.0-36.0); Mean Corpuscular Volume 86.7 fL (80.0-100.0); Monocytes # (auto) 0.6 10 ^3/uL (0-1.3); Monocytes % (auto) 13.2 % (0.0-12.0); Neutrophils # (auto) 2.8 10 ^3/uL (1.6-8.6); Neutrophils % (auto) 57.3 % (37.0-80.0); Nucleated Red Blood Cells % 0.4 %; Platelet Count (auto) 186 10^3/uL (140-450); Red Blood Cells 4.48 10^6/uL (4.5-5.90); Red Cell Distribution Width 15.6 % (11.8-14.3); White Blood Cell 4.9 10^3/uL (4.4-10.8)
[2024-06-30 06:18] LABS: Albumin 3.8 g/dL (3.2-4.8); Alkaline Phosphatase 78 U/L (46-116); Anion Gap 9 (5-15); BUN/Creatinine Ratio 14.1 (10.0-20.0); Blood Urea Nitrogen 10 mg/dL (9-23); Calcium 9.3 mg/dL (8.7-10.4); Carbon Dioxide 25 mmol/L (20-31); Chloride 105 mmol/L (98-107); Glucose 105 mg/dL (74-106); Potassium 4.2 mmol/L (3.5-5.1); Sodium 139 mmol/L (136-145); Total Protein 6.9 g/dL (5.7-8.2)
[2024-06-30 06:19] LABS: Bilirubin, Total 0.3 mg/dL (0.2-1.0)
[2024-06-30 06:38] LABS: Alanine Aminotransferase 53 U/L (7-40); Aspartate Aminotransferase 63 U/L (13-40)
[2024-06-30 08:00] VITALS: RESP 16; O2SAT 100
[2024-06-30 10:00] VITALS: O2SAT 94; O2SAT 95
[2024-06-30] MEDS ORDERED: HALOPERIDOL LACTATE 5 MG/ML INJ VIAL IM ONE (10:15)
[2024-06-30] MEDS: OXcarbazepine 300 MG TAB PO ONE (11:35)
[2024-06-30] MEDS ORDERED: [UNRECOGNIZED DRUG - CODE] PO (11:51)
--- NOTE | 2024-06-30 11:57 | DVHDS2 ---
Discharge Summary Date of Admission Jun 27, 2024 at 17:01 Date of Discharge: Jun 30, 2024 Labs/Diagnostic Data: Laboratory Results Test 06/30/24 05:34 06/28/24 14:23 06/28/24 14:06 06/27/24 17:32 White Blood Count 4.9 10^3/uL (4.4-10.8) Red Blood Count 4.48 10^6/uL (4.5-5.90) Hemoglobin 12.9 g/dL (13.5-17.5) Hematocrit 38.8 % (41.0-53.0) Mean Corpuscular Volume 86.7 fL (80.0-100.0) Mean Corpuscular Hemoglobin 28.7 pg (28.0-32.0) Mean Corpuscular Hemoglobin Concent 33.1 g/dL (32.0-36.0) Red Cell Distribution Width 15.6 % (11.8-14.3) Platelet Count 186 10^3/uL (140-450) Mean Platelet Volume 6.8 fL (6.9-10.8) Neutrophils (%) (Auto) 57.3 % (37.0-80.0) Lymphocytes (%) (Auto) 26.7 % (10.0-50.0) Monocytes (%) (Auto) 13.2 % (0.0-12.0) Eosinophils (%) (Auto) 2.0 % (0.0-7.0) Basophils (%) (Auto) 0.8 % (0.0-2.0) Neutrophils # (Auto) 2.8 10 ^3/uL (1.6-8.6) Lymphocytes # (Auto) 1.3 10 ^3/uL (0.4-5.4) Monocytes # (Auto) 0.6 10 ^3/uL (0-1.3) Eosinophils # (Auto) 0.1 10 ^3/uL (0-0.8) Basophils # (Auto) 0 10 ^3/uL (0-0.2) Nucleated Red Blood Cells 0.4 % Sodium Level 139 mmol/L (136-145) Potassium Level 4.2 mmol/L (3.5-5.1) Chloride Level 105 mmol/L (98-107) Carbon Dioxide Level 25 mmol/L (20-31) Anion Gap 9 (5-15) Blood Urea Nitrogen 10 mg/dL (9-23) Creatinine 0.71 mg/dL (0.700-1.30) Glomerular Filtration Rate Calc 118 mL/min (>90) BUN/Creatinine Ratio 14.1 (10.0-20.0) Serum Glucose 105 mg/dL (74-106) Calcium Level 9.3 mg/dL (8.7-10.4) Total Bilirubin 0.3 mg/dL (0.2-1.0) Aspartate Amino Transferase (AST) 63 U/L (13-40) Alanine Aminotransferase (ALT) 53 U/L (7-40) Alkaline Phosphatase 78 U/L (46-116) Total Protein 6.9 g/dL (5.7-8.2) Albumin 3.8 g/dL (3.2-4.8) Phosphorus Level 4.3 mg/dL (2.4-5.1) Magnesium Level 1.8 mg/dL (1.6-2.6) Creatine Kinase 42 U/L (46-171) Prolactin 37.99 ng/mL (2.1-17.7) POC Glucose 159 mg/dl (70-106) Differential Total Cells Counted 100.0 (100) Neutrophils % (Manual) 89 (37.0-80.0) Band Neutrophils % (Manual) 0 Lymphocytes % (Manual) 10 (10.0-50.0) Monocytes % (Manual) 1 (0-12) Eosinophils % (Manual) 0 (0-7) Basophils % (Manual) 0 (0.0-2.0) Metamyelocytes % (manual) 0 Myelocytes % (Manual) 0 Promyelocytes % (Manual) 0 Blast Cells % (Manual) 0 Reactive Lymphocytes 0 Platelet Estimate Adequate Erythrocyte Sedimentation Rate 14 mm/hr (0-20) Hemoglobin A1c 7.0 % A1C (<5.7) Troponin I High Sensitivity < 3 ng/L (</=54) C-Reactive Protein High Sensitivity 1.52 mg/dL (<1.0) Valproic Acid Level 82.8 ug/mL (50-100) Other Laboratory Tests 06/30/24 05:34 Brief Hx & Hospital Course: HPI: 43-year-old male w Significant history of the patient includes cognitive delay, seizure disorder, and COPD. Presenting to the emergency room with reports of shortness of breath. Patient states that he has a shortness of breath has been worsening over the past two days. Patient was seen in the emergency room, and after being discharged, had worsening shortness of breath and wheezing. At the time of assessment, the patient does have some inspiratory wheezing. Chest x-ray is unremarkable. He was also found to be tachycardic with a heart rate of 118. Summary: Initially on admit patient is wheezing, shortness of breath. Admitted for COPD exacerbation, started on duo nebs, steroids. On day 2 patient has a could assist/code rapid for breakthrough seizure. Patient was given Ativan and Keppra load to control the acute breakthrough seizure. Patient returns to normal baseline thereafter. Neurology consulted prolactin is elevated. Keppra b.i.d. continued. Patient was agitated but controlled by p.r.n. Ativan for anxiety. 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 Which is confirmed later by [facility] staff. However prolactin does not add up. Patient will be started on second- line drug and follow up with Neurology as per plan below. Diagnosis: CopD exacerbation mild Breakthrough seizures, possible nonepileptic/ psychogenic History of seizure disorder developmental delay intellectual disability Discharge plan: start Keppra 500 mg b.i.d. 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 Patient was counseled about treatment plan, medications, possible side effects, patientverbalized understanding. All questions were answered to the best of my ability. This discharge took greater then 30 minutes in planning, reviewing documentation, counseling the patient, and discussing with other team members." Date of Service: Jun 30, 2024 Billing Provider: ADITI COTO MD Common Visit Codes: 44306-AWS/OBS DISCH DAY >30min ADITI COTO MD Jun 30, 2024 11:57
[2024-06-30 13:04] VITALS: TEMP 36.7
[2024-06-30 13:20] VITALS: O2SAT 94
[2024-06-30] MEDS ORDERED: HALOPERIDOL LACTATE 5 MG/ML INJ VIAL IV PRN (18:00)
[2024-06-30] MEDS ORDERED: OXcarbazepine 300 MG TAB PO SCH (22:00)
== END 2024-06-30 15:45 | disposition home or self-care (01) | DRG 192 ==
LOC: ER 14:18 → OVERFLOW 17:01 → CENTRAL 06-28 17:45
PROVIDERS: ADMIT Student in an Organized Health Care Education/Training Program; ATTEND Student in an Organized Health Care Education/Training Program
DX: J44.1 Chronic obstructive pulmonary disease with (acute) exacerbation (principal); I10 Essential (primary) hypertension; F32.A Depression, unspecified; R62.50 Unspecified lack of expected normal physiological development in childhood; F79 Unspecified intellectual disabilities; E78.5 Hyperlipidemia, unspecified; E66.01 Morbid (severe) obesity due to excess calories; G47.411 Narcolepsy with cataplexy; F41.9 Anxiety disorder, unspecified; R00.0 Tachycardia, unspecified; E03.9 Hypothyroidism, unspecified; Z88.2 Allergy status to sulfonamides; Z88.8 Allergy status to other drugs, medicaments and biological substances; Z79.899 Other long term (current) drug therapy; Z88.3 Allergy status to other anti-infective agents; Z79.1 Long term (current) use of non-steroidal anti-inflammatories (NSAID); Z68.35 Body mass index [BMI] 35.0-35.9, adult; Z83.3 Family history of diabetes mellitus; Z79.2 Long term (current) use of antibiotics; Z79.84 Long term (current) use of oral hypoglycemic drugs; R56.9 Unspecified convulsions
CPT/HCPCS: 36415; 70450; 80053; 80164; 82550; 82962; 83036; 83735; 84100; 84146; 84484; 85007; 85025; 85027; 85652; 86141; 94640; 96365; 96375; G0378

== ENCOUNTER 2024-07-07 15:15 | Emergency (ER) | payer OTHER, MEDICAID ==
[~2024-07-07] VITALS: Ht 180.3 cm; Wt 126.3 kg
[~2024-07-07 15:15] MED LIST changes: -DIVA1TAB59 PO; -LEVO500T91 PO; -OLAN1TAB19; +PANT40T; -PRED20TA2 PO; -QUET400T13; +RISP4TAB53; -TERB250T92; +[UNRECOGNIZED DRUG - CODE] PO
--- NOTE | 2024-07-07 15:27 | ED.PDOC ---
HPI (NEURO) HPI Comments 43 year old male ANA presents to the ED with chief complaint of dizziness. EMS reports patient is coming from a senior care house where patient has started to experience dizziness since earlier today. EMS relays patient had only 1 glass of water today and no food. EMS states patient's mother has power of review analyst and did not want patient to be transported to the ED today, however, she did not have the necessary paperwork on hand so they had transported him anyway. EMS states patient had orthostatics performed on scene with a systolic BP of 148 going down to 115 and a heart rate of 123. Patient notes no sick contacts are present at the half way home. Patient denies any chest pain, SOB, headache, N/V/D, abdominal pain, or fever. Time Seen by MD: 15:24 Primary Care Provider: AMEE Reviewed Notes: Nurses Notes, Software Performance Engineer Notes, Medications, Allergies Information Source: Patient, Emergency Med Personnel Mode of Arrival: EMS Severity: Moderate Dizziness/Weakness Severity: Unable to do activities Timing: Hours Duration: Since onset Prehospital treatment: None Symptoms: Vertigo History of: None Modifying factors: Nothing Associated Signs and Symptoms: None Past Medical History PAST MEDICAL HISTORY: Asthma, COPD, Depression, High Lipids, HTN, Seizures, Thyroid Past Medical History (Other): Bipolar Surgical History: Denies all surgeries Family History Family History: Reviewed,noncontributory to illness Social History Smoker: Non-Smoker Alcohol: Denies ETOH Use Drugs: Denies Drug Use Lives In: Home Constitutional: denies: chills, diaphoresis, fatigue, fever, malaise, sweats, weakness, others EENTM: denies: blurred vision, double vision, ear bleeding, ear discharge, ear drainage, ear pain, ear ringing, eye pain, eye redness, hearing loss, mouth pain, mouth swelling, nasal discharge, nose bleeding, nose congestion, nose pain, photophobia, tearing, throat pain, throat swelling, voice changes, others Respiratory: denies: cough, hemoptysis, orthopnea, SOB at rest, shortness of breath, SOB with excertion, stridor, wheezing, others Cardiovascular: denies: chest pain, dizzy spells, diaphoresis, Dyspnea on exertion, edema, irregular heart beat, left arm pain, lightheadedness, palpitations, PND, syncope, others Gastrointestinal: denies: abdomen distended, abdominal pain, blood streaked bowels, constipated, diarrhea, dysphagia, difficulty swallowing, hematemesis, melena, nausea, poor appetite, poor fluid intake, rectal bleeding, rectal pain, vomiting, others Genitourinary: denies: burning, dysuria, flank pain, frequency, hematuria, incontinence, penile discharge, penile sore, pain, testicle pain, testicle swelling, urgency, others Neurological: reports: dizziness; denies: fainting, headache, left sided numbness, left sided weakness, numbness, paresthesia, pre-existing deficit, right sided numbness, right sided weakness, seizure, speech problems, tingling, tremors, weakness, others Musculoskeletal: denies: back pain, gout, joint pain, joint swelling, muscle pain, muscle stiffness, neck pain, others Integumetry: denies: bruises, change in color, change in hair/nails, dryness, laceration, lesions, lumps, rash, wounds, others Allergic/Immunocompromised: denies: Difficulty Healing, Frequent Infections, Hives, Itching, others Hematologic/Lymphatic: denies: anemia, blood clots, easy bleeding, easy bruising, swollen glands, others Endocrine: denies: excessive hunger, excessive sweating, excessive thirst, excessive urination, flushing, intolerance to cold, intolerance to heat, unexplained weight gain, unexplained weight loss, others Psychiatric: denies: anxiety, bipolar disorder, depression, hopeless, panic disorder, schizophrenia, sleepless, suicidal, others All Other Systems: Reviewed and Negative Physical Exam General Appearance: Mild Distress, Obese HEENT: Normal ENT Inspection, Pharynx Normal, TMs Normal Neck: Full Range of Motion, Non-Tender, Normal, Normal Inspection Respiratory: Chest Non-Tender, Lungs Clear, No Accessory Muscle Use, No Respiratory Distress, Normal Breath Sounds Cardiovascular: No Edema, No JVD, No Murmur, No Gallop, Normal Peripheral Pulses, Regular Rate/Rhythm Breast Exam: Deferred Gastrointestinal: No Organomegaly, Non Tender, No Pulsatile Mass, Normal Bowel Sounds, Soft Genitalia: Deferred Pelvic: Deferred Rectal: Deferred Extremities: No calf tenderness, Normal capillary refill, Normal inspection, Normal range of motion, Non-tender, No pedal edema Musculoskeletal : Apperance: Normal Neurologic: Alert, chief scientific officer II-XII nml as Tested, No Motor Deficits, Normal Affect, Normal Mood, No Sensory Deficits Cerebellar Function: Normal Reflexes: Normal Skin: Dry, Normal Color, Warm Lymphatic: No Adenopathy Was a procedure done? Was a procedure done?: No Differential Diagnosis (SZ) Seizure: CVA/TIA, Hypoglycemia, Hyponatremia X-Ray, Labs, Meds, VS Vital Signs Date Time Temp Pulse Resp B/P (MAP) Pulse Ox O2 Delivery O2 Flow Rate FiO2 07/07/24 15:25 98.4 92 14 125/57 (79) 98 Lab Test 07/07/24 16:19 07/07/24 15:36 Range/Units White Blood Count 9.9 4.4-10.8 10^3/uL Red Blood Count 5.18 4.5-5.90 10^6/uL Hemoglobin 14.9 13.5-17.5 g/dL Hematocrit 44.3 41.0-53.0 % Mean Corpuscular Volume 85.4 80.0-100.0 fL Mean Corpuscular Hemoglobin 28.7 28.0-32.0 pg Mean Corpuscular Hemoglobin Concent 33.6 32.0-36.0 g/dL Red Cell Distribution Width 15.8 H 11.8-14.3 % Platelet Count 262 140-450 10^3/uL Mean Platelet Volume 7.5 6.9-10.8 fL Neutrophils (%) (Auto) 77.6 37.0-80.0 % Lymphocytes (%) (Auto) 13.5 10.0-50.0 % Monocytes (%) (Auto) 8.3 0.0-12.0 % Eosinophils (%) (Auto) 0.4 0.0-7.0 % Basophils (%) (Auto) 0.2 0.0-2.0 % Neutrophils # (Auto) 7.7 1.6-8.6 10 ^3/uL Lymphocytes # (Auto) 1.3 0.4-5.4 10 ^3/uL Monocytes # (Auto) 0.8 0-1.3 10 ^3/uL Eosinophils # (Auto) 0 0-0.8 10 ^3/uL Basophils # (Auto) 0 0-0.2 10 ^3/uL Nucleated Red Blood Cells 0.1 % Sodium Level 141 136-145 mmol/L Potassium Level 3.8 3.5-5.1 mmol/L Chloride Level 104 98-107 mmol/L Carbon Dioxide Level 29 20-31 mmol/L Anion Gap 8 5-15 Blood Urea Nitrogen 16 9-23 mg/dL Creatinine 1.14 0.700-1.30 mg/dL Glomerular Filtration Rate Calc 83 >90 mL/min BUN/Creatinine Ratio 14.0 10.0-20.0 Serum Glucose 110 H 74-106 mg/dL Calcium Level 10.0 8.7-10.4 mg/dL POC Glucose 101 70-106 mg/dl The patient's CBC is within normal limits The chemistry panel is within normal limits. The patient was being discharged at this time The patient will follow up with the primary care doctor The patient will return to the emergency department the condition worsens Time of 1ST Reevaluation: 18:13 Reevaluation 1ST: Unchanged Time of 2ND Reevaluation: 18:13 Reevaluation 2ND: Improved Patient Education/Counseling: Diagnosis, Treatment, Prognosis, Need For Follow Up Family Education/Counseling: No Family Present Additional Information -Reviewed patient's previous visit(s): 06/27/24 for COPD exacerbation - The following tests were ordered, and results were reviewed by me: - Additional information was gathered from interviewing the following independent Historian: EMS - I reviewed and agreed with the following test results read by other provider: - I discussed treatments and results with medical personnel and: patient Comprehensive systems review obtained and negative except for what is stated in the HPI. Departure 1 Departure Time of Disposition: 18:14 Impression: Primary Impression: Dehydration Disposition: 01 HOME / SELF CARE / HOMELESS Condition: Fair Discharged With: Self Critical Care Note Critical Care Time?: No Stability Stability form required: No Heart Score Heart Score: Heart Score Response (Comments) Value History N/A 0 EKG N/A 0 Age N/A 0 Risk Factors N/A 0 Troponin N/A 0 Total 0 I personally scribed for JOHN SNELL MD ([email or web address]) on 07/07/24 at 15:27. Electronically submitted by Maurice Damian ([email or web address]). JOHN SNELL MD Jul 07, 2024 15:27
--- NOTE | 2024-07-07 15:38 | ECG ---
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
[2024-07-07 17:12] LABS: Chloride 104 mmol/L (98-107); Potassium 3.8 mmol/L (3.5-5.1); Sodium 141 mmol/L (136-145)
[2024-07-07 17:13] LABS: Anion Gap 8 (5-15); Basophils # (auto) 0 10 ^3/uL (0-0.2); Basophils % (auto) 0.2 % (0.0-2.0); Carbon Dioxide 29 mmol/L (20-31); Eosinophils # (auto) 0 10 ^3/uL (0-0.8); Eosinophils % (auto) 0.4 % (0.0-7.0); Hematocrit 44.3 % (41.0-53.0); Hemoglobin 14.9 g/dL (13.5-17.5); Lymphocytes # (auto) 1.3 10 ^3/uL (0.4-5.4); Lymphocytes % (auto) 13.5 % (10.0-50.0); Mean Corpuscular Hemoglobin 28.7 pg (28.0-32.0); Mean Corpuscular Hgb Conc. 33.6 g/dL (32.0-36.0); Mean Corpuscular Volume 85.4 fL (80.0-100.0); Monocytes # (auto) 0.8 10 ^3/uL (0-1.3); Monocytes % (auto) 8.3 % (0.0-12.0); Neutrophils # (auto) 7.7 10 ^3/uL (1.6-8.6); Neutrophils % (auto) 77.6 % (37.0-80.0); Nucleated Red Blood Cells % 0.1 %; Platelet Count (auto) 262 10^3/uL (140-450); Red Blood Cells 5.18 10^6/uL (4.5-5.90); Red Cell Distribution Width 15.8 % (11.8-14.3); White Blood Cell 9.9 10^3/uL (4.4-10.8)
[2024-07-07 17:18] LABS: Blood Urea Nitrogen 16 mg/dL (9-23)
[2024-07-07 17:26] LABS: Glucose 110 mg/dL (74-106)
[2024-07-07] MEDS: SODIUM CHLORIDE 0.9% 1,000 ML IV ONE (19:00)
[2024-07-07 19:21] VITALS: BP 142/75; PULSE 74; RESP 22; TEMP 97.7; O2SAT 95
== END 2024-07-07 20:30 | disposition home or self-care (01) ==
LOC: EDBD 15:15 → ER 15:19
DX: E86.0 Dehydration (principal); J44.9 Chronic obstructive pulmonary disease, unspecified; I10 Essential (primary) hypertension; E78.5 Hyperlipidemia, unspecified; F32.9 Major depressive disorder, single episode, unspecified
CPT/HCPCS: 36415; 80048; 82947; 85025; 93005; 96360; 99284; J7030; 82962

== ENCOUNTER 2024-07-28 23:26 | Emergency (ER) | payer OTHER, MEDICAID ==
[~2024-07-28] VITALS: Ht 177.8 cm; Wt 136.4 kg
--- NOTE | 2024-07-29 00:05 | ED.PDOC ---
History of Present Illness HPI Comments 43-year-old male came to ER via EMS for dizziness. Patient has history of hypertension, COPD, seizures and autism. Patient resides at a [facility]. Patient called medics, stating he has been feeling very dizzy since this morning, with multiple bouts of diarrhea. Denies any nausea or vomiting. Chief Complaint: Dizziness Time Seen by MD: 00:04 Primary Care Provider: unknown Reviewed Notes: Day Porter Notes Allergies: Coded Allergies: Brompheniramine (Verified Allergy, Severe, 06/21/24) Paliperidone (Verified Allergy, Severe, 12/11/16) Ondansetron (Unverified Allergy, Unknown, NAUSEA, 10/29/17) Sulfamethoxazole w/Trimethoprim (Verified Allergy, Unknown, 12/11/16) Home Meds Active Scripts Ondansetron HCl (Ondansetron Hydrochloride) 8 Mg Tab, 8 MG PO Q6HP PRN, #30 TAB Prov:BRITTANY COSBY MD 07/29/24 Loperamide Hcl (Imodium) 2 Mg Cp, 2 MG PO Q6HP PRN, #30 CAP Prov:BRITTANY COSBY MD 07/29/24 Meclizine HCl (Antivert) 25 Mg Chw, 25 MG PO Q6HP PRN, #30 TAB.CHEW Prov:BRITTANY COSBY MD 07/29/24 Levetiracetam (LEVETIRACETAM ER) 500 Mg Tab, 500 MG PO BID for 30 Days, #60 TAB 1 Refill Prov:ADITI COTO MD 06/30/24 Benzonatate (Benzonatate) 200 Mg Cap, 1 CAP PO TIDP, #30 CAP Prov:FLY CHOWDHURY 06/27/24 Dicyclomine Hcl (BENTYL CAPSULE) 10 Mg Cp, 1 CAP PO Q6HPRN PRN for 10 Days, #40 CAP 3 Refills Prov:BRITTANY COSBY MD 06/21/24 Loperamide Hcl (Imodium) 2 Mg Cp, 2 MG PO Q6HP PRN for 7 Days, #30 CAP 1 Refill Prov:BRITTANY COSBY MD 06/21/24 Ondansetron HCl (Ondansetron Hydrochloride) 8 Mg Tab, 8 MG PO Q6HP PRN for 7 Days, #28 TAB 1 Refill Prov:BRITTANY COSBY MD 06/21/24 Ciprofloxacin Hcl (Cipro) 500 Mg Tab, 1 TAB PO BID, #20 TAB Prov:ISAMAR HER MD 06/06/24 Reported Medications Pantoprazole Sodium Sesquihydr (Pantoprazole Sodium) 40 Mg Tab, 1 DAILY 06/27/24 Risperidone (Risperidone) 4 Mg Tab 06/27/24 Fluticasone Propionate (Nasal) (Fluticasone Propionate) 50 Mcg/Act Spr, ANNETTA 06/05/24 Tamsulosin Hcl (Tamsulosin Hcl) 0.4 Mg Cap 06/05/24 Hydroxyzine Hcl (Hydroxyzine Hcl) 50 Mg Tab, 1 06/05/24 Furosemide (Furosemide) 20 Mg Tab, 1 DAILY 06/05/24 Divalproex Sodium (Divalproex Sodium Dr) 250 Mg Tab, TAB PO 03/17/24 Clonazepam (Clonazepam) 0.5 Mg Tab, TAB PO 03/17/24 Information Source: Patient, Emergency Med Personnel Mode of Arrival: EMS Severity: Moderate Timing: Hours Duration: Intermittent Prehospital treatment: None Past Medical History PAST MEDICAL HISTORY: Asthma, COPD, Depression, High Lipids, HTN, Seizures, Thyroid Past Medical History (Other): Autism Surgical History: Denies all surgeries Family History Family History: Reviewed,noncontributory to illness Social History Smoker: Non-Smoker Alcohol: Denies ETOH Use Drugs: Denies Drug Use Lives In: Assisted Care Constitutional: denies: chills, diaphoresis, fatigue, fever, malaise, sweats, weakness, others EENTM: denies: blurred vision, double vision, ear bleeding, ear discharge, ear drainage, ear pain, ear ringing, eye pain, eye redness, hearing loss, mouth pain, mouth swelling, nasal discharge, nose bleeding, nose congestion, nose pain, photophobia, tearing, throat pain, throat swelling, voice changes, others Respiratory: denies: cough, hemoptysis, orthopnea, SOB at rest, shortness of breath, SOB with excertion, stridor, wheezing, others Cardiovascular: denies: chest pain, dizzy spells, diaphoresis, Dyspnea on exertion, edema, irregular heart beat, left arm pain, lightheadedness, palpitations, PND, syncope, others Gastrointestinal: denies: abdomen distended, abdominal pain, blood streaked bowels, constipated, diarrhea, dysphagia, difficulty swallowing, hematemesis, melena, nausea, poor appetite, poor fluid intake, rectal bleeding, rectal pain, vomiting, others Genitourinary: denies: burning, dysuria, flank pain, frequency, hematuria, incontinence, penile discharge, penile sore, pain, testicle pain, testicle swelling, urgency, others Neurological: reports: dizziness; denies: fainting, headache, left sided numbness, left sided weakness, numbness, paresthesia, pre-existing deficit, right sided numbness, right sided weakness, seizure, speech problems, tingling, tremors, weakness, others Musculoskeletal: denies: back pain, gout, joint pain, joint swelling, muscle pain, muscle stiffness, neck pain, others Integumetry: denies: bruises, change in color, change in hair/nails, dryness, laceration, lesions, lumps, rash, wounds, others Allergic/Immunocompromised: denies: Difficulty Healing, Frequent Infections, Hives, Itching, others Hematologic/Lymphatic: denies: anemia, blood clots, easy bleeding, easy bruising, swollen glands, others Endocrine: denies: excessive hunger, excessive sweating, excessive thirst, excessive urination, flushing, intolerance to cold, intolerance to heat, unexplained weight gain, unexplained weight loss, others Psychiatric: denies: anxiety, bipolar disorder, depression, hopeless, panic disorder, schizophrenia, sleepless, suicidal, others Physical Exam General Appearance: No Apparent Distress, Normal HEENT: Normal ENT Inspection, Pharynx Normal, TMs Normal Neck: Full Range of Motion, Non-Tender, Normal, Normal Inspection Respiratory: Chest Non-Tender, Lungs Clear, No Accessory Muscle Use, No Respiratory Distress, Normal Breath Sounds Cardiovascular: No Edema, No JVD, No Murmur, No Gallop, Normal Peripheral Pulses, Regular Rate/Rhythm Breast Exam: Deferred Gastrointestinal: No Organomegaly, Non Tender, No Pulsatile Mass, Normal Bowel Sounds, Soft Genitalia: Deferred Pelvic: Deferred Rectal: Deferred Extremities: No calf tenderness, Normal capillary refill, Normal inspection, Normal range of motion, Non-tender, No pedal edema Musculoskeletal : Apperance: Normal Neurologic: Alert, side stitching machine operator II-XII nml as Tested, No Motor Deficits, Normal Affect, Normal Mood, No Sensory Deficits Cerebellar Function: Normal Reflexes: Normal Skin: Dry, Normal Color, Warm Lymphatic: No Adenopathy Was a procedure done? Was a procedure done?: No Differential Dx Considerations may include: Anemia, electrolyte imbalance, autism, dizziness, diarrhea X-Ray, Labs, Meds, VS Vital Signs Date Time Temp Pulse Resp B/P (MAP) Pulse Ox O2 Delivery O2 Flow Rate FiO2 07/28/24 23:34 98.1 91 16 142/84 (103) 94 98.1 07/28/24 23:29 90 Lab Test 07/29/24 00:12 Range/Units White Blood Count 4.3 L 4.4-10.8 10^3/uL Red Blood Count 4.47 L 4.5-5.90 10^6/uL Hemoglobin 13.0 L 13.5-17.5 g/dL Hematocrit 38.4 L 41.0-53.0 % Mean Corpuscular Volume 85.9 80.0-100.0 fL Mean Corpuscular Hemoglobin 29.1 28.0-32.0 pg Mean Corpuscular Hemoglobin Concent 33.9 32.0-36.0 g/dL Red Cell Distribution Width 16.1 H 11.8-14.3 % Platelet Count 180 140-450 10^3/uL Mean Platelet Volume 6.9 6.9-10.8 fL Neutrophils (%) (Auto) 56.9 37.0-80.0 % Lymphocytes (%) (Auto) 24.8 10.0-50.0 % Monocytes (%) (Auto) 14.6 H 0.0-12.0 % Eosinophils (%) (Auto) 2.8 0.0-7.0 % Basophils (%) (Auto) 0.9 0.0-2.0 % Neutrophils # (Auto) 2.4 1.6-8.6 10 ^3/uL Lymphocytes # (Auto) 1.1 0.4-5.4 10 ^3/uL Monocytes # (Auto) 0.6 0-1.3 10 ^3/uL Eosinophils # (Auto) 0.1 0-0.8 10 ^3/uL Basophils # (Auto) 0 0-0.2 10 ^3/uL Nucleated Red Blood Cells 0.1 % Sodium Level 138 136-145 mmol/L Potassium Level 4.0 3.5-5.1 mmol/L Chloride Level 102 98-107 mmol/L Carbon Dioxide Level 28 20-31 mmol/L Anion Gap 8 5-15 Blood Urea Nitrogen 10 9-23 mg/dL Creatinine 0.89 0.700-1.30 mg/dL Glomerular Filtration Rate Calc 110 >90 mL/min BUN/Creatinine Ratio 11.2 10.0-20.0 Serum Glucose 154 H 74-106 mg/dL Calcium Level 9.4 8.7-10.4 mg/dL Magnesium Level 1.7 1.6-2.6 mg/dL Total Bilirubin 0.2 0.2-1.0 mg/dL Aspartate Amino Transferase (AST) 21 13-40 U/L Alanine Aminotransferase (ALT) 18 7-40 U/L Alkaline Phosphatase 83 46-116 U/L Total Protein 7.1 5.7-8.2 g/dL Albumin 4.0 3.2-4.8 g/dL Time of 1ST Reevaluation: 23:57 Reevaluation 1ST: Unchanged Patient Education/Counseling: Diagnosis, Treatment Family Education/Counseling: No Family Present Departure 1 Departure Time of Disposition: 02:20 Impression: Primary Impression: Dizziness Additional Impression: Nausea vomiting and diarrhea Disposition: 01 HOME / SELF CARE / HOMELESS Condition: Stable e-Prescriptions Ondansetron HCl (Ondansetron Hydrochloride) 8 Mg Tab 8 MG PO Q6HP PRN, #30 TAB Prov: BRITTANY COSBY MD 07/29/24 Loperamide Hcl (Imodium) 2 Mg Cp 2 MG PO Q6HP PRN, #30 CAP Prov: BRITTANY COSBY MD 07/29/24 Meclizine HCl (Antivert) 25 Mg Chw 25 MG PO Q6HP PRN, #30 TAB.CHEW Prov: BRITTANY COSBY MD 07/29/24 Discharged With: Self Critical Care Note Critical Care Time?: No Stability Stability form required: No Heart Score Heart Score: Heart Score Response (Comments) Value History N/A 0 EKG N/A 0 Age N/A 0 Risk Factors N/A 0 Troponin N/A 0 Total 0 I personally scribed for BRITTANY COSBY MD ([email or web address]) on 07/29/24 at 00:05. Electronically submitted by Casey Camarillo ([email or web address]). BRITTANY COSBY MD Jul 29, 2024 00:05
--- NOTE | 2024-07-29 00:18 | ECG ---
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
[2024-07-29 00:21] LABS: Basophils # (auto) 0 10 ^3/uL (0-0.2); Basophils % (auto) 0.9 % (0.0-2.0); Eosinophils # (auto) 0.1 10 ^3/uL (0-0.8); Eosinophils % (auto) 2.8 % (0.0-7.0); Hematocrit 38.4 % (41.0-53.0); Lymphocytes # (auto) 1.1 10 ^3/uL (0.4-5.4); Lymphocytes % (auto) 24.8 % (10.0-50.0); Mean Corpuscular Hemoglobin 29.1 pg (28.0-32.0); Mean Corpuscular Hgb Conc. 33.9 g/dL (32.0-36.0); Mean Corpuscular Volume 85.9 fL (80.0-100.0); Monocytes # (auto) 0.6 10 ^3/uL (0-1.3); Monocytes % (auto) 14.6 % (0.0-12.0); Neutrophils # (auto) 2.4 10 ^3/uL (1.6-8.6); Neutrophils % (auto) 56.9 % (37.0-80.0); Nucleated Red Blood Cells % 0.1 %; Platelet Count (auto) 180 10^3/uL (140-450); Red Blood Cells 4.47 10^6/uL (4.5-5.90); Red Cell Distribution Width 16.1 % (11.8-14.3); White Blood Cell 4.3 10^3/uL (4.4-10.8)
[2024-07-29 00:44] LABS: Alanine Aminotransferase 18 U/L (7-40); Alkaline Phosphatase 83 U/L (46-116); Anion Gap 8 (5-15); Aspartate Aminotransferase 21 U/L (13-40); BUN/Creatinine Ratio 11.2 (10.0-20.0); Blood Urea Nitrogen 10 mg/dL (9-23); Calcium 9.4 mg/dL (8.7-10.4); Carbon Dioxide 28 mmol/L (20-31); Chloride 102 mmol/L (98-107); Magnesium 1.7 mg/dL (1.6-2.6); Sodium 138 mmol/L (136-145); Total Protein 7.1 g/dL (5.7-8.2)
[2024-07-29 00:56] LABS: Bilirubin, Total 0.2 mg/dL (0.2-1.0); Glucose 154 mg/dL (74-106)
[2024-07-29] MEDS ORDERED: MECL25CH85 PO (02:19)
[2024-07-29] MEDS: ONDANSETRON ODT 4 MG TAB PO ONE (03:26)
[2024-07-29] MEDS: LOPERAMIDE HCL 2 MG CAP/TAB PO ONE (03:26)
[2024-07-29] MEDS: MECLIZINE HCL 25 MG TAB PO ONE (03:26)
[2024-07-29] MEDS ORDERED: MORPHINE SULFATE 4 MG/ML SYR/VIAL IV ONE (03:30)
[2024-07-29] MEDS ORDERED: ONDANSETRON HCL 4 MG/2 ML VIAL IV ONE (03:30)
[2024-07-29] MEDS: MORPHINE SULFATE 4 MG/ML SYR/VIAL IM ONE (03:50)
[2024-07-29] MEDS: ONDANSETRON HCL 4 MG/2 ML VIAL IM ONE (03:50)
[2024-07-29 03:55] VITALS: BP 118/70; TEMP 97.8
[2024-07-29] MEDS: ACETAMINOPHEN 500 MG TAB or CAP PO ONE (03:59)
[2024-07-29 04:05] VITALS: PULSE 87; RESP 18; O2SAT 96
--- NOTE | 2024-07-31 13:12 | ECG ---
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
== END 2024-07-29 05:56 | disposition home or self-care (01) ==
LOC: EDBD 23:26 → ER 23:26
DX: R42 Dizziness and giddiness (principal); R11.2 Nausea with vomiting, unspecified; R19.7 Diarrhea, unspecified; J44.9 Chronic obstructive pulmonary disease, unspecified; E78.5 Hyperlipidemia, unspecified; I10 Essential (primary) hypertension; F84.0 Autistic disorder; Z88.2 Allergy status to sulfonamides; Z88.1 Allergy status to other antibiotic agents; Z79.899 Other long term (current) drug therapy
CPT/HCPCS: 36415; 80053; 83735; 85025; 93005; 99284; J8597

== ENCOUNTER 2024-08-12 09:07 | Emergency (ER) | payer OTHER, MEDICAID ==
[~2024-08-12] VITALS: Ht 180.3 cm; Wt 159.0 kg
[~2024-08-12 09:07] MED LIST changes: +MECL25CH85 PO
--- NOTE | 2024-08-12 10:50 | ED.PDOC ---
History of Present Illness HPI Comments 43Y M with PMHx autism, HTN, HLD, and seizures presents to ED via EMS with chief complaint seizure. Per EMS, board&care facility did not witness the seizure but pt states he was seizing for >25mins. No trauma or incontinence noted. Pt is taking Depakote, but facility states it is not for seizure management. No other symptoms or history reported. Chief Complaint: Seizure Time Seen by MD: 10:15 Primary Care Provider: unknown Reviewed Notes: Nurses Notes, Molder Bench Notes, Medications, Allergies Allergies: Coded Allergies: Brompheniramine (Verified Allergy, Severe, 06/21/24) Paliperidone (Verified Allergy, Severe, 12/11/16) Ondansetron (Unverified Allergy, Unknown, NAUSEA, 10/29/17) Risperidone (Verified Allergy, Unknown, 08/12/24) Sulfamethoxazole w/Trimethoprim (Verified Allergy, Unknown, 12/11/16) Home Meds Active Scripts Ondansetron HCl (Ondansetron Hydrochloride) 8 Mg Tab, 8 MG PO Q6HP PRN, #30 TAB Prov:BRITTANY COSBY MD 07/29/24 Loperamide Hcl (Imodium) 2 Mg Cp, 2 MG PO Q6HP PRN, #30 CAP Prov:BRITTANY COSBY MD 07/29/24 Meclizine HCl (Antivert) 25 Mg Chw, 25 MG PO Q6HP PRN, #30 TAB.CHEW Prov:BRITTANY COSBY MD 07/29/24 Levetiracetam (LEVETIRACETAM ER) 500 Mg Tab, 500 MG PO BID for 30 Days, #60 TAB 1 Refill Prov:ADITI COTO MD 06/30/24 Benzonatate (Benzonatate) 200 Mg Cap, 1 CAP PO TIDP, #30 CAP Prov:FLY CHOWDHURY 06/27/24 Dicyclomine Hcl (BENTYL CAPSULE) 10 Mg Cp, 1 CAP PO Q6HPRN PRN for 10 Days, #40 CAP 3 Refills Prov:BRITTANY COSBY MD 06/21/24 Loperamide Hcl (Imodium) 2 Mg Cp, 2 MG PO Q6HP PRN for 7 Days, #30 CAP 1 Refill Prov:BRITTANY COSBY MD 06/21/24 Ondansetron HCl (Ondansetron Hydrochloride) 8 Mg Tab, 8 MG PO Q6HP PRN for 7 Days, #28 TAB 1 Refill Prov:BRITTANY COSBY MD 06/21/24 Ciprofloxacin Hcl (Cipro) 500 Mg Tab, 1 TAB PO BID, #20 TAB Prov:ISAMAR HER MD 06/06/24 Reported Medications Pantoprazole Sodium Sesquihydr (Pantoprazole Sodium) 40 Mg Tab, 1 DAILY 06/27/24 Risperidone (Risperidone) 4 Mg Tab 06/27/24 Fluticasone Propionate (Nasal) (Fluticasone Propionate) 50 Mcg/Act Spr, ANNETTA 06/05/24 Tamsulosin Hcl (Tamsulosin Hcl) 0.4 Mg Cap 06/05/24 Hydroxyzine Hcl (Hydroxyzine Hcl) 50 Mg Tab, 1 06/05/24 Furosemide (Furosemide) 20 Mg Tab, 1 DAILY 06/05/24 Divalproex Sodium (Divalproex Sodium Dr) 250 Mg Tab, TAB PO 03/17/24 Clonazepam (Clonazepam) 0.5 Mg Tab, TAB PO 03/17/24 Information Source: Patient, Emergency Med Personnel Mode of Arrival: EMS Severity: Mild Timing: Minutes Duration: Minutes Prehospital treatment: None Past Medical History PAST MEDICAL HISTORY: Asthma, COPD, Depression, High Lipids, HTN, Seizures, Th yroid Surgical History: Denies all surgeries Family History Family History: Reviewed,noncontributory to illness Social History Smoker: Non-Smoker Alcohol: Denies ETOH Use Drugs: Denies Drug Use Lives In: Assisted Care Constitutional: denies: chills, diaphoresis, fatigue, fever, malaise, sweats, weakness, others EENTM: denies: blurred vision, double vision, ear bleeding, ear discharge, ear drainage, ear pain, ear ringing, eye pain, eye redness, hearing loss, mouth pain, mouth swelling, nasal discharge, nose bleeding, nose congestion, nose pain, photophobia, tearing, throat pain, throat swelling, voice changes, others Respiratory: denies: cough, hemoptysis, orthopnea, SOB at rest, shortness of breath, SOB with excertion, stridor, wheezing, others Cardiovascular: denies: chest pain, dizzy spells, diaphoresis, Dyspnea on exertion, edema, irregular heart beat, left arm pain, lightheadedness, palpita tions, PND, syncope, others Gastrointestinal: denies: abdomen distended, abdominal pain, blood streaked cristy wels, constipated, diarrhea, dysphagia, difficulty swallowing, hematemesis, melena, nausea, poor appetite, poor fluid intake, rectal bleeding, rectal pain, vomiting, others Genitourinary: denies: burning, dysuria, flank pain, frequency, hematuria, incontinence, penile discharge, penile sore, pain, testicle pain, testicle swelling, urgency, others Neurological: denies: dizziness, fainting, headache, left sided numbness, left sided weakness, numbness, paresthesia, pre-existing deficit, right sided numbness, right sided weakness, seizure, speech problems, tingling, tremors, weakness, others Musculoskeletal: denies: back pain, gout, joint pain, joint swelling, muscle pain, muscle stiffness, neck pain, others Integumetry: denies: bruises, change in color, change in hair/nails, dryness, laceration, lesions, lumps, rash, wounds, others Allergic/Immunocompromised: denies: Difficulty Healing, Frequent Infections, Hives, Itching, others Hematologic/Lymphatic: denies: anemia, blood clots, easy bleeding, easy bruisin g, swollen glands, others Endocrine: denies: excessive hunger, excessive sweating, excessive thirst, excessive urination, flushing, intolerance to cold, intolerance to heat, unexplained weight gain, unexplained weight loss, others Psychiatric: denies: anxiety, bipolar disorder, depression, hopeless, panic disorder, schizophrenia, sleepless, suicidal, others All Other Systems: Reviewed and Negative Physical Exam General Appearance: No Apparent Distress, Normal HEENT: Normal ENT Inspection, Pharynx Normal, TMs Normal Neck: Full Range of Motion, Non-Tender, Normal, Normal Inspection Respiratory: Chest Non-Tender, Lungs Clear, No Accessory Muscle Use, No Respiratory Distress, Normal Breath Sounds Cardiovascular: No Edema, No JVD, No Murmur, No Gallop, Normal Peripheral Pulses, Regular Rate/Rhythm Breast Exam: Deferred Gastrointestinal: No Organomegaly, Non Tender, No Pulsatile Mass, Normal Bowel Sounds, Soft Genitalia: Deferred Pelvic: Deferred Rectal: Deferred Extremities: No calf tenderness, Normal capillary refill, Normal inspection, Normal range of motion, Non-tender, No pedal edema Musculoskeletal : Apperance: Normal Neurologic: Alert, cable television line technician II-XII nml as Tested, No Motor Deficits, Normal Affect, Normal Mood, No Sensory Deficits Cerebellar Function: NOT DONE Reflexes: NOT DONE Skin: Dry, Normal Color, Warm Lymphatic: No Adenopathy Was a procedure done? Was a procedure done?: No Differential Dx Considerations may include: Seizure disorder, breakthrough seizure X-Ray, Labs, Meds, VS Vital Signs Date Time Temp Pulse Resp B/P (MAP) Pulse Ox O2 Delivery O2 Flow Rate FiO2 08/12/24 13:02 74 18 95 Room Air* 0 21 08/12/24 09:14 98.6 80 19 112/74 (87) 95 98.6 Current Medications Medications (Trade) Dose Ordered Sig/[place]ana Route Start Time Stop Time Status Last Admin Levetiracetam (Keppra Tablet) 1,000 mg ONCE ONCE PO 08/12/24 13:45 08/12/24 13:46 DC 08/12/24 13:44 Time of 1ST Reevaluation: 10:45 Reevaluation 1ST: Unchanged Patient Education/Counseling: Diagnosis, Treatment Family Education/Counseling: No Family Present Departure 1 Departure Time of Disposition: 14:46 (Patient had a breakthrough seizures but has now returned to baseline. We will discharge patient home with outpatient follow up) Impression: Primary Impression: Breakthrough seizure Disposition: 01 HOME / SELF CARE / HOMELESS Condition: Stable Additional Instructions: You had a breakthrough seizure today. It is important to take your seizure medication. You should stay well rested and well hydrated. You should follow up with your regular doctor within 1 week. If your symptoms worsen or you have any other concerns then please return to the emergency room. Discharged With: Self Critical Care Note Critical Care Time?: No Stability Stability form required: No Heart Score Heart Score: Heart Score Response (Comments) Value History N/A 0 EKG N/A 0 Age N/A 0 Risk Factors N/A 0 Troponin N/A 0 Total 0 I personally scribed for NELI NUGENT MD ([email or web address]) on 08/12/24 at 10:50. Electronically submitted by Steph Garcia ([email or web address]). NELI NUGENT MD Aug 12, 2024 10:50
[2024-08-12] MEDS ORDERED: levETIRAcetam 1000 mg/100ml 100 ML IV ONE (11:30)
[2024-08-12 13:00] VITALS: TEMP 98.4
[2024-08-12 13:02] VITALS: PULSE 74; RESP 18; O2SAT 95
[2024-08-12] MEDS: levETIRAcetam 500 MG TAB PO ONE (13:44)
[2024-08-12 17:00] VITALS: BP 108/72; PULSE 84; RESP 21; O2SAT 93
== END 2024-08-12 17:48 | disposition home or self-care (01) ==
LOC: EDBD 09:07 → ER 09:07
DX: R56.9 Unspecified convulsions (principal); J44.9 Chronic obstructive pulmonary disease, unspecified; F32.A Depression, unspecified; E78.5 Hyperlipidemia, unspecified; I10 Essential (primary) hypertension; Z79.899 Other long term (current) drug therapy; Z88.1 Allergy status to other antibiotic agents; Z88.2 Allergy status to sulfonamides; Z88.8 Allergy status to other drugs, medicaments and biological substances
CPT/HCPCS: 82947

== ENCOUNTER 2024-08-22 18:11 | Inpatient (IN) | payer OTHER, MEDICAID ==
[~2024-08-22] VITALS: Ht 170.2 cm; Wt 159.0 kg
--- NOTE | 2024-08-22 18:52 | DVH ---
CLINICAL INDICATION: RULE OUT FOREGIN BODY IN PENIS TECHNIQUE: Single frontal view of the pelvis XY PELVIS AP Comparison: None FINDINGS/IMPRESSION: There is no evidence of acute fracture or dislocation. No metallic foreign bodies. There is a faint linear density near the tip of the penis that measures u p to 2.5 cm. Finding could represent artifact from overlapping structures although given the provide d history a foreign body can not be entirely excluded. Recommend clinical correlation and may consid er ultrasound.
[2024-08-22 19:06] LABS: Basophils # (auto) 0 10 ^3/uL (0-0.2); Basophils % (auto) 0.3 % (0.0-2.0); Eosinophils # (auto) 0.1 10 ^3/uL (0-0.8); Eosinophils % (auto) 2.3 % (0.0-7.0); Hemoglobin 13.5 g/dL (13.5-17.5); Lymphocytes # (auto) 1.3 10 ^3/uL (0.4-5.4); Lymphocytes % (auto) 26.3 % (10.0-50.0); Mean Corpuscular Hemoglobin 28.4 pg (28.0-32.0); Mean Corpuscular Hgb Conc. 33.8 g/dL (32.0-36.0); Monocytes # (auto) 0.6 10 ^3/uL (0-1.3); Monocytes % (auto) 11.2 % (0.0-12.0); Neutrophils % (auto) 59.9 % (37.0-80.0); Nucleated Red Blood Cells % 0.1 %; Platelet Count (auto) 169 10^3/uL (140-450); Red Blood Cells 4.75 10^6/uL (4.5-5.90); Red Cell Distribution Width 15.3 % (11.8-14.3); White Blood Cell 4.9 10^3/uL (4.4-10.8)
[2024-08-22 19:23] LABS: Alanine Aminotransferase 34 U/L (7-40); Alkaline Phosphatase 78 U/L (46-116); Anion Gap 6 (5-15); Aspartate Aminotransferase 29 U/L (13-40); BUN/Creatinine Ratio 11.6 (10.0-20.0); Bilirubin, Total 0.2 mg/dL (0.2-1.0); Blood Urea Nitrogen 10 mg/dL (9-23); Calcium 9.4 mg/dL (8.7-10.4); Carbon Dioxide 32 mmol/L (20-31); Chloride 102 mmol/L (98-107); Glucose 136 mg/dL (74-106); Potassium 3.9 mmol/L (3.5-5.1); Sodium 140 mmol/L (136-145); Total Protein 7.1 g/dL (5.7-8.2)
--- NOTE | 2024-08-22 20:05 | DVH ---
PELVIC ULTRASOUND CLINICAL HISTORY: RULE OUT PENILE FOREIGN BODY (PLASTIC STRAW) COMPARISON: None TECHNIQUE: Grayscale and color flow imaging of the penile structures performed to evaluate for foreig n body. Findings and impression: Tubular, thin-walled structure seen within the imaged penile urethra. This measures approximately 2. 8 x 0.6 x 0.8 cm.
[2024-08-22] MEDS: DexAMETHasone SOD PHOS 10MG/1ML VIAL INJ IM ONE (20:38)
--- NOTE | 2024-08-22 20:48 | ED.PDOC ---
General HPI Comments BIBA FROM [facility] FOR PENILE PAIN. PT REPORTS INSERTING FLEXIBLE STRAW IN URETHRA BECAUSE HE "WAS ITCHY". REPORTS ORANGE URINE. WAS SEEN AT [facility] AND DX WITH UTI 2 DAYS AGO. 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 DENIES DIFFICULTY URINATING, ABDOMINAL PAIN, FEVER, CHILLS, NAUSEA, OR VOMITING REPORTS NO FLANK PAIN OR WEAKNESS. Chief Complaint: Penile Problem Time Seen by MD: 18:17 Primary Care Provider: unknown Reviewed notes: Nurses Notes, Medications, Allergies Allergies: Coded Allergies: Brompheniramine (Verified Allergy, Severe, 06/21/24) Paliperidone (Verified Allergy, Severe, 12/11/16) Ondansetron (Unverified Allergy, Unknown, NAUSEA, 10/29/17) Risperidone (Verified Allergy, Unknown, 08/12/24) Sulfamethoxazole w/Trimethoprim (Verified Allergy, Unknown, 12/11/16) Home Meds Active Scripts Ondansetron HCl (Ondansetron Hydrochloride) 8 Mg Tab, 8 MG PO Q6HP PRN, #30 TAB Prov:BRITTANY COSBY MD 07/29/24 Loperamide Hcl (Imodium) 2 Mg Cp, 2 MG PO Q6HP PRN, #30 CAP Prov:BRITTANY COSBY MD 07/29/24 Meclizine HCl (Antivert) 25 Mg Chw, 25 MG PO Q6HP PRN, #30 TAB.CHEW Prov:BRITTANY COSBY MD 07/29/24 Levetiracetam (LEVETIRACETAM ER) 500 Mg Tab, 500 MG PO BID for 30 Days, #60 TAB 1 Refill Prov:ADITI COTO MD 06/30/24 Benzonatate (Benzonatate) 200 Mg Cap, 1 CAP PO TIDP, #30 CAP Prov:FLY CHOWDHURY 06/27/24 Dicyclomine Hcl (BENTYL CAPSULE) 10 Mg Cp, 1 CAP PO Q6HPRN PRN for 10 Days, #40 CAP 3 Refills Prov:BRITTANY COSBY MD 06/21/24 Loperamide Hcl (Imodium) 2 Mg Cp, 2 MG PO Q6HP PRN for 7 Days, #30 CAP 1 Refill Prov:BRITTANY COSBY MD 06/21/24 Ondansetron HCl (Ondansetron Hydrochloride) 8 Mg Tab, 8 MG PO Q6HP PRN for 7 Days, #28 TAB 1 Refill Prov:BRITTANY COSBY MD 06/21/24 Ciprofloxacin Hcl (Cipro) 500 Mg Tab, 1 TAB PO BID, #20 TAB Prov:ISAMAR HER MD 06/06/24 Reported Medications Pantoprazole Sodium Sesquihydr (Pantoprazole Sodium) 40 Mg Tab, 1 DAILY 06/27/24 Risperidone (Risperidone) 4 Mg Tab 06/27/24 Fluticasone Propionate (Nasal) (Fluticasone Propionate) 50 Mcg/Act Spr, ANNETTA 06/05/24 Tamsulosin Hcl (Tamsulosin Hcl) 0.4 Mg Cap 06/05/24 Hydroxyzine Hcl (Hydroxyzine Hcl) 50 Mg Tab, 1 06/05/24 Furosemide (Furosemide) 20 Mg Tab, 1 DAILY 06/05/24 Divalproex Sodium (Divalproex Sodium Dr) 250 Mg Tab, TAB PO 03/17/24 Clonazepam (Clonazepam) 0.5 Mg Tab, TAB PO 03/17/24 Information Source: Patient Mode of Arrival: EMS Past Medical History PAST MEDICAL HISTORY: Asthma, COPD, Depression, High Lipids, HTN, Seizures, Thyroid Surgical History: Denies all surgeries Family History Family History: Reviewed,noncontributory to illness Social History Smoker: Non-Smoker Alcohol: Denies ETOH Use Drugs: Denies Drug Use Lives In: Assisted Care Constitutional: denies: chills, diaphoresis, fatigue, fever, malaise, sweats, weakness, others EENTM: denies: blurred vision, double vision, ear bleeding, ear discharge, ear drainage, ear pain, ear ringing, eye pain, eye redness, hearing loss, mouth pain, mouth swelling, nasal discharge, nose bleeding, nose congestion, nose pain, photophobia, tearing, throat pain, throat swelling, voice changes, others Respiratory: denies: cough, hemoptysis, orthopnea, SOB at rest, shortness of breath, SOB with excertion, stridor, wheezing, others Cardiovascular: denies: chest pain, dizzy spells, diaphoresis, Dyspnea on exertion, edema, irregular heart beat, left arm pain, lightheadedness, palpitations, PND, syncope, others Gastrointestinal: denies: abdomen distended, abdominal pain, blood streaked bowels, constipated, diarrhea, dysphagia, difficulty swallowing, hematemesis, melena, nausea, poor appetite, poor fluid intake, rectal bleeding, rectal pain, vomiting, others Genitourinary: reports: pain; denies: burning, dysuria, flank pain, frequency, hematuria, incontinence, penile discharge, penile sore, testicle pain, testicle swelling, urgency, others Neurological: denies: dizziness, fainting, headache, left sided numbness, left sided weakness, numbness, paresthesia, pre-existing deficit, right sided numbness, right sided weakness, seizure, speech problems, tingling, tremors, weakness, others Musculoskeletal: denies: back pain, gout, joint pain, joint swelling, muscle pain, muscle stiffness, neck pain, others Integumetry: denies: bruises, change in color, change in hair/nails, dryness, laceration, lesions, lumps, rash, wounds, others Allergic/Immunocompromised: denies: Difficulty Healing, Frequent Infections, Hives, Itching, others Hematologic/Lymphatic: denies: anemia, blood clots, easy bleeding, easy bruising, swollen glands, others Endocrine: denies: excessive hunger, excessive sweating, excessive thirst, excessive urination, flushing, intolerance to cold, intolerance to heat, unexplained weight gain, unexplained weight loss, others Psychiatric: denies: anxiety, bipolar disorder, depression, hopeless, panic disorder, schizophrenia, sleepless, suicidal, others Physical Exam General Appearance: No Apparent Distress, Normal HEENT: Pharynx Normal Neck: Full Range of Motion, Non-Tender, Normal, Normal Inspection Respiratory: Chest Non-Tender, Lungs Clear, No Respiratory Distress Cardiovascular: No Edema, No JVD, No Murmur, No Gallop, Normal Peripheral Pulses, Regular Rate/Rhythm Breast Exam: Deferred Gastrointestinal: No Organomegaly, Non Tender, No Pulsatile Mass, Normal Bowel Sounds, Soft Genitalia: Penis (MODERATE TENDERNESS ON PALPATION NO NOTED FOREIGN BODY EXTRU DING THROUGH THE HEAD OF THE THE HEAD OF PENIS NO NOTED BLEEDING OR DISCHARGE) Pelvic: Deferred Rectal: Deferred Extremities: Normal capillary refill, Normal inspection, Normal range of nidhi on, Non-tender, No pedal edema Musculoskeletal : Apperance: Normal Neurologic: Alert, stem mounter II-XII nml as Tested, No Motor Deficits, Normal Affect, Normal Mood, No Sensory Deficits Cerebellar Function: Normal Reflexes: Normal Skin: Dry, Normal Color, Warm Lymphatic: No Adenopathy Was a procedure done? Was a procedure done?: No Differential Diagnosis Kidney stone (Female): N/A Urinary Problem (Male): Bladder Obstruction, Plelonephritis, Renal Failure, Urethritis, Urinary Retention, UTI X-Ray, Labs, Meds, VS Vital Signs Date Time Temp Pulse Resp B/P (MAP) Pulse Ox O2 Delivery O2 Flow Rate FiO2 08/22/24 20:27 98.3 83 20 137/84 (101) 94 98.3 08/22/24 20:27 83 20 94 Room Air 08/22/24 18:19 99.4 83 16 143/90 (107) 94 99.4 Lab Test 08/22/24 20:30 08/22/24 18:39 Range/Units Urine Color Yellow Yellow Urine Clarity Clear Clear Urine pH 6.0 5.0-9.0 Urine Specific [place] 1.031 1.001-1.035 Urine Protein Trace H Negative Urine Ketones Trace Negative Urine Blood 1+ H Negative /uL Urine Nitrite Negative Negative Urine Bilirubin Negative Negative Urine Urobilinogen Normal Negative mg/dL Urine Leukocyte Esterase 2+ Negative /uL Urine RBC 27 0 - 3 /hpf Urine Microscopic WBC 43 H 0-3 /HPF Urine Squamous Epithelial Cells Few <5 /hpf Urine Bacteria None seen None Seen /hpf Urine Mucus Few None Seen Urine Glucose Normal Normal mg/dL Urine Opiates Screen Neg NEGATIVE Urine Fentanyl Screen Neg NEGATIVE Urine Barbiturates Screen Neg NEGATIVE Urine Phencyclidine Screen Neg NEGATIVE Urine Amphetamines Screen Neg NEGATIVE Urine Benzodiazepines Screen Neg NEGATIVE Urine Cocaine Screen Neg NEGATIVE Urine Cannabinoids Screen Neg NEGATIVE White Blood Count 4.9 4.4-10.8 10^3/uL Red Blood Count 4.75 4.5-5.90 10^6/uL Hemoglobin 13.5 13.5-17.5 g/dL Hematocrit 40.0 L 41.0-53.0 % Mean Corpuscular Volume 84.0 80.0-100.0 fL Mean Corpuscular Hemoglobin 28.4 28.0-32.0 pg Mean Corpuscular Hemoglobin Concent 33.8 32.0-36.0 g/dL Red Cell Distribution Width 15.3 H 11.8-14.3 % Platelet Count 169 140-450 10^3/uL Mean Platelet Volume 7.1 6.9-10.8 fL Neutrophils (%) (Auto) 59.9 37.0-80.0 % Lymphocytes (%) (Auto) 26.3 10.0-50.0 % Monocytes (%) (Auto) 11.2 0.0-12.0 % Eosinophils (%) (Auto) 2.3 0.0-7.0 % Basophils (%) (Auto) 0.3 0.0-2.0 % Neutrophils # (Auto) 3.0 1.6-8.6 10 ^3/uL Lymphocytes # (Auto) 1.3 0.4-5.4 10 ^3/uL Monocytes # (Auto) 0.6 0-1.3 10 ^3/uL Eosinophils # (Auto) 0.1 0-0.8 10 ^3/uL Basophils # (Auto) 0 0-0.2 10 ^3/uL Nucleated Red Blood Cells 0.1 % Prothrombin Time 10.9 9.3-11.8 sec Prothrombin Time INR 1.03 0.9-1.15 Sodium Level 140 136-145 mmol/L Potassium Level 3.9 3.5-5.1 mmol/L Chloride Level 102 98-107 mmol/L Carbon Dioxide Level 32 H 20-31 mmol/L Anion Gap 6 5-15 Blood Urea Nitrogen 10 9-23 mg/dL Creatinine 0.86 0.700-1.30 mg/dL Glomerular Filtration Rate Calc 112 >90 mL/min BUN/Creatinine Ratio 11.6 10.0-20.0 Serum Glucose 136 H 74-106 mg/dL Calcium Level 9.4 8.7-10.4 mg/dL Total Bilirubin 0.2 0.2-1.0 mg/dL Aspartate Amino Transferase (AST) 29 13-40 U/L Alanine Aminotransferase (ALT) 34 7-40 U/L Alkaline Phosphatase 78 46-116 U/L Total Protein 7.1 5.7-8.2 g/dL Albumin 4.0 3.2-4.8 g/dL X-Ray, Labs, Meds, VS Comment IMAGING: PELVIC X-RAY FINDINGS: There is no evidence of acute fracture or dislocation. No metallic foreign bodies. There is a faint linear density near the tip of the penis that measures up to 2.5 cm. Finding could represent artifact from overlapping structures although given the provided history a foreign body can not be entirely excluded. Recommend clinical correlation and may consider ultrasound. ULTRASOUND FINDINGS: Tubular, thin-walled structure seen within the imaged penile urethra. This measures approximately 2.8 x 0.6 x 0.8 cm. LABS: CBC within normal limits CMP within normal limits UA pending PLAN: DX foreign body and penis Admission placed for hospitalist Admit for Urology consult Patient agrees with plan currently stable denies any pain no noted bleeding he reports minimal discomfort we will continue to monitor. Time of 1ST Reevaluation: 20:58 Reevaluation 1ST: Unchanged Patient Education/Counseling: Diagnosis, Treatment, Prognosis, Need For Follow Up Family Education/Counseling: No Family Present Departure 1 Departure Time of Disposition: 20:47 Impression: Primary Impression: Foreign body in penis Qualified Codes: T19.4XXA - Foreign body in penis, initial encounter Disposition: ADMITTED INPATIENT Condition: Stable Discharged With: Self Critical Care Note Critical Care Time?: No Stability Stability form required: KEN Ponce Aug 22, 2024 20:48
[2024-08-22] MEDS ORDERED: MECLIZINE 25 MG PO PRN (21:30)
[2024-08-22] MEDS ORDERED: LOPERAMIDE HCL 2 MG CAP/TAB PO PRN (21:30)
[2024-08-22] MEDS ORDERED: clonazePAM 0.5 MG TAB PO PRN (21:30)
[2024-08-22] MEDS ORDERED: ONDANSETRON HCL 8 MG PO PRN (21:30)
[2024-08-22] MEDS ORDERED: DICYCLOMINE HCL 10 MG CAP PO PRN (21:30)
[2024-08-22] MEDS ORDERED: HYDROcodone-ACET 5/325MG TAB PO PRN (21:30)
[2024-08-22] MEDS ORDERED: ONDANSETRON HCL 4 MG/2 ML VIAL IV PRN (21:30)
[2024-08-22] MEDS ORDERED: DOCUSATE SOD 100 MG CAP PO PRN (21:30)
[2024-08-22] MEDS ORDERED: ACETAMINOPHEN 325 MG TAB PO PRN (21:30)
--- NOTE | 2024-08-22 21:32 | DVHHP2 ---
Admitting Diagnosis: Urethral pain History of Present Illness Patient is 43 years old male BIBA FROM [facility] FOR PENILE PAIN. PT REPORTS INSERTING FLEXIBLE STRAW IN URETHRA BECAUSE HE "WAS ITCHY". REPORTS ORANGE URINE. [facility] AND DX WITH UTI 2 DAYS AGO. PT DID NOT DOBIE MAN ANTIBIOTICS. DENIES DIFFICULTY URINATING, ABDOMINAL PAIN, FEVER, CHILLS, NAUSEA, OR VOMITING REPORTS NO FLANK PAIN OR WEAKNESS. PAST MEDICAL HISTORY: Asthma, COPD, Depression, High Lipids, HTN, Seizures, Thyroid Surgical History: Denies all surgeries Family History Family History: Reviewed,noncontributory to illness Social History Smoker: Non-Smoker Alcohol: Denies ETOH Use Drugs: Denies Drug Use Lives In: Assisted Care Patient Family History: Diabetes mellitus G8 FATHER Allergies: Coded Allergies: Brompheniramine (Verified Allergy, Severe, 06/21/24) Paliperidone (Verified Allergy, Severe, 12/11/16) Ondansetron (Unverified Allergy, Unknown, NAUSEA, 10/29/17) Risperidone (Verified Allergy, Unknown, 08/12/24) Sulfamethoxazole w/Trimethoprim (Verified Allergy, Unknown, 12/11/16) Home Meds Active Scripts Ondansetron HCl (Ondansetron Hydrochloride) 8 Mg Tab, 8 MG PO Q6HP PRN, #30 TAB Prov:BRITTANY COSBY MD 07/29/24 Loperamide Hcl (Imodium) 2 Mg Cp, 2 MG PO Q6HP PRN, #30 CAP Prov:BRITTANY COSBY MD 07/29/24 Meclizine HCl (Antivert) 25 Mg Chw, 25 MG PO Q6HP PRN, #30 TAB.CHEW Prov:BRITTANY COSBY MD 07/29/24 Levetiracetam (LEVETIRACETAM ER) 500 Mg Tab, 500 MG PO BID for 30 Days, #60 TAB 1 Refill Prov:ADITI COTO MD 06/30/24 Benzonatate (Benzonatate) 200 Mg Cap, 1 CAP PO TIDP, #30 CAP Prov:FLY CHOWDHURY 06/27/24 Dicyclomine Hcl (BENTYL CAPSULE) 10 Mg Cp, 1 CAP PO Q6HPRN PRN for 10 Days, #40 CAP 3 Refills Prov:BRITTANY COSBY MD 06/21/24 Loperamide Hcl (Imodium) 2 Mg Cp, 2 MG PO Q6HP PRN for 7 Days, #30 CAP 1 Refill Prov:BRITTANY COSBY MD 06/21/24 Ondansetron HCl (Ondansetron Hydrochloride) 8 Mg Tab, 8 MG PO Q6HP PRN for 7 Days, #28 TAB 1 Refill Prov:BRITTANY COSBY MD 06/21/24 Ciprofloxacin Hcl (Cipro) 500 Mg Tab, 1 TAB PO BID, #20 TAB Prov:ISAMAR HER MD 06/06/24 Reported Medications Pantoprazole Sodium Sesquihydr (Pantoprazole Sodium) 40 Mg Tab, 1 DAILY 06/27/24 Risperidone (Risperidone) 4 Mg Tab 06/27/24 Fluticasone Propionate (Nasal) (Fluticasone Propionate) 50 Mcg/Act Spr, ANNETTA 06/05/24 Tamsulosin Hcl (Tamsulosin Hcl) 0.4 Mg Cap 06/05/24 Hydroxyzine Hcl (Hydroxyzine Hcl) 50 Mg Tab, 1 06/05/24 Furosemide (Furosemide) 20 Mg Tab, 1 DAILY 06/05/24 Divalproex Sodium (Divalproex Sodium Dr) 250 Mg Tab, TAB PO 03/17/24 Clonazepam (Clonazepam) 0.5 Mg Tab, TAB PO 03/17/24 Vital Signs Vital Signs Date Time Temp Pulse Resp B/P (MAP) Pulse Ox O2 Delivery O2 Flow Rate FiO2 08/22/24 20:27 98.3 83 20 137/84 (101) 94 98.3 08/22/24 20:27 Room Air Physical Exam 43 years old, morbidly obese, lying in bed. No apparent distress HEENT-atraumatic, normocephalic Heart-regular rate and rhythm Lungs clear to auscultate Abdomen soft nontender nondistended Musculoskeletal no edema cyanosis -normal penile shaft, unable to see the straw in the urethra, tender to palpate urethra Neuro-AO x3, no focal deficits Results Labs Test 08/22/24 18:39 Range/Units White Blood Count 4.9 4.4-10.8 10^3/uL Red Blood Count 4.75 4.5-5.90 10^6/uL Hemoglobin 13.5 13.5-17.5 g/dL Hematocrit 40.0 L 41.0-53.0 % Mean Corpuscular Volume 84.0 80.0-100.0 fL Mean Corpuscular Hemoglobin 28.4 28.0-32.0 pg Mean Corpuscular Hemoglobin Concent 33.8 32.0-36.0 g/dL Red Cell Distribution Width 15.3 H 11.8-14.3 % Platelet Count 169 140-450 10^3/uL Mean Platelet Volume 7.1 6.9-10.8 fL Neutrophils (%) (Auto) 59.9 37.0-80.0 % Lymphocytes (%) (Auto) 26.3 10.0-50.0 % Monocytes (%) (Auto) 11.2 0.0-12.0 % Eosinophils (%) (Auto) 2.3 0.0-7.0 % Basophils (%) (Auto) 0.3 0.0-2.0 % Neutrophils # (Auto) 3.0 1.6-8.6 10 ^3/uL Lymphocytes # (Auto) 1.3 0.4-5.4 10 ^3/uL Monocytes # (Auto) 0.6 0-1.3 10 ^3/uL Eosinophils # (Auto) 0.1 0-0.8 10 ^3/uL Basophils # (Auto) 0 0-0.2 10 ^3/uL Nucleated Red Blood Cells 0.1 % Sodium Level 140 136-145 mmol/L Potassium Level 3.9 3.5-5.1 mmol/L Chloride Level 102 98-107 mmol/L Carbon Dioxide Level 32 H 20-31 mmol/L Anion Gap 6 5-15 Blood Urea Nitrogen 10 9-23 mg/dL Creatinine 0.86 0.700-1.30 mg/dL Glomerular Filtration Rate Calc 112 >90 mL/min BUN/Creatinine Ratio 11.6 10.0-20.0 Serum Glucose 136 H 74-106 mg/dL Calcium Level 9.4 8.7-10.4 mg/dL Total Bilirubin 0.2 0.2-1.0 mg/dL Aspartate Amino Transferase (AST) 29 13-40 U/L Alanine Aminotransferase (ALT) 34 7-40 U/L Alkaline Phosphatase 78 46-116 U/L Total Protein 7.1 5.7-8.2 g/dL Albumin 4.0 3.2-4.8 g/dL Primary Diagnosis Foreign object urethra Plan Patient says the patient protocol stroke in ureter last meds start beginning to have pain. Ultrasound shows foreign object in urethral Urology consult to retrieve the foreign object NPO after midnight IV fluids pain control Antiemetic Bowel regimen Full code SCD for DVT prophylaxis No GI prophylaxis needed Plan discussed with: Patient Problems List: (1) Foreign body in penis Status: Acute Date of Service: Aug 22, 2024 Billing Provider: INDER BOLAÑOS MD Common Visit Codes: [id number] INP/OBS CARE (MOD) INDER BOLAÑOS MD Aug 22, 2024 21:32
[2024-08-22] MEDS ORDERED: BENZONATATE 200 MG PO PRN (22:00)
[2024-08-22] MEDS ORDERED: LEVETIRACETAM 500 MG PO SCH (22:00)
[2024-08-22 22:28] LABS: INR 1.03 (0.9-1.15); Prothrombin Time 10.9 sec (9.3-11.8)
[2024-08-22 22:29] LABS: Urine Bacteria None Seen /hpf (None Seen)
[2024-08-22 22:35] LABS: Urine Blood 1+ /uL (Negative); Urine Clarity Clear (Clear); Urine Color Yellow (Yellow); Urine Mucus FEW (None Seen); Urine Protein, UAD TRACE (Negative); Urine Specific Gravity 1.031 (1.001-1.035); Urine Squamous Epithelial Cell FEW /hpf (<5); Urine Urobilinogen Normal (Negative); Urine WBC 43 /HPF (0-3)
[2024-08-22 22:46] LABS: Barbiturate Scree,Urine Neg (NEGATIVE); Benzodiazephine Screen, Urine Neg (NEGATIVE)
[2024-08-22 22:49] LABS: Amphetamine Screen, Urine Neg (NEGATIVE); Cannabinoid Screen, Urine Neg (NEGATIVE); Cocaine Screen, Urine Neg (NEGATIVE); Opiate Scree,Urine Neg (NEGATIVE); Phencyclidine Screen, Urine Neg (NEGATIVE)
[2024-08-22 23:27] VITALS: BP 120/74; PULSE 55; RESP 18; TEMP 98.2; O2SAT 98
[2024-08-23] VITALS (7 sets, daily range): BP systolic 104–126; BP diastolic 63–86; PULSE 62–77; RESP 16–70; TEMP 36.7; O2SAT 96–98
[2024-08-23] MEDS: SODIUM CHLOR 0.9% PF (SALINE LOCK) 10ML VIAL/SYR IV SCH (00:28)
[2024-08-23 07:50] LABS: Alanine Aminotransferase 35 U/L (7-40); Albumin 3.9 g/dL (3.2-4.8); Alkaline Phosphatase 75 U/L (46-116); Anion Gap 9 (5-15); Aspartate Aminotransferase 30 U/L (13-40); BUN/Creatinine Ratio 15.9 (10.0-20.0); Blood Urea Nitrogen 13 mg/dL (9-23); Calcium 9.3 mg/dL (8.7-10.4); Carbon Dioxide 27 mmol/L (20-31); Chloride 105 mmol/L (98-107); Potassium 4.2 mmol/L (3.5-5.1); Sodium 141 mmol/L (136-145); Total Protein 6.6 g/dL (5.7-8.2)
[2024-08-23 07:51] LABS: Bilirubin, Total 0.3 mg/dL (0.2-1.0)
[2024-08-23 07:58] LABS: Glucose 110 mg/dL (74-106)
--- NOTE | 2024-08-23 08:33 | DVHINCON2 ---
Date of service: Aug 23, 2024 Referring Physician hospitalist Reason for Consultation foreign body in urethra History of Present Illness History Source: Patient, RN Notes, MD Notes, Old Records Exam Limitations: Other HPI 43 yo male known to urology service for frequent urethral foreign bodies requiring cystoscopic retrieval. PT REPORTS INSERTING FLEXIBLE STRAW IN URETHRA A MONTH AGO BECAUSE HE "WAS ITCHY". REPORTS ORANGE URINE. [facility] AND DX WITH UTI 2 DAYS AGO. PT DID NOT SUPERVISOR WIRE ROPE FABRICATION ANTIBIOTICS. DENIES DIFFICULTY URINATING, ABDOMINAL PAIN, FEVER, CHILLS, NAUSEA, OR VOMITING REPORTS NO FLANK PAIN OR WEAKNESS. Home Meds Active Scripts Ondansetron HCl (Ondansetron Hydrochloride) 8 Mg Tab, 8 MG PO Q6HP PRN, #30 TAB Prov:BRITTANY COSBY MD 07/29/24 Loperamide Hcl (Imodium) 2 Mg Cp, 2 MG PO Q6HP PRN, #30 CAP Prov:BRITTANY COSBY MD 07/29/24 Meclizine HCl (Antivert) 25 Mg Chw, 25 MG PO Q6HP PRN, #30 TAB.CHEW Prov:BRITTANY COSBY MD 07/29/24 Levetiracetam (LEVETIRACETAM ER) 500 Mg Tab, 500 MG PO BID for 30 Days, #60 TAB 1 Refill Prov:ADITI COTO MD 06/30/24 Benzonatate (Benzonatate) 200 Mg Cap, 1 CAP PO TIDP, #30 CAP Prov:FLY CHOWDHURY 06/27/24 Dicyclomine Hcl (BENTYL CAPSULE) 10 Mg Cp, 1 CAP PO Q6HPRN PRN for 10 Days, #40 CAP 3 Refills Prov:BRITTANY COSBY MD 06/21/24 Loperamide Hcl (Imodium) 2 Mg Cp, 2 MG PO Q6HP PRN for 7 Days, #30 CAP 1 Refill Prov:BRITTANY COSBY MD 06/21/24 Ondansetron HCl (Ondansetron Hydrochloride) 8 Mg Tab, 8 MG PO Q6HP PRN for 7 Days, #28 TAB 1 Refill Prov:BRITTANY COSBY MD 06/21/24 Ciprofloxacin Hcl (Cipro) 500 Mg Tab, 1 TAB PO BID, #20 TAB Prov:ISAMAR HER MD 06/06/24 Reported Medications Pantoprazole Sodium Sesquihydr (Pantoprazole Sodium) 40 Mg Tab, 1 DAILY 06/27/24 Risperidone (Risperidone) 4 Mg Tab 06/27/24 Fluticasone Propionate (Nasal) (Fluticasone Propionate) 50 Mcg/Act Spr, ANNETTA 06/05/24 Tamsulosin Hcl (Tamsulosin Hcl) 0.4 Mg Cap 06/05/24 Hydroxyzine Hcl (Hydroxyzine Hcl) 50 Mg Tab, 1 06/05/24 Furosemide (Furosemide) 20 Mg Tab, 1 DAILY 06/05/24 Divalproex Sodium (Divalproex Sodium Dr) 250 Mg Tab, TAB PO 03/17/24 Clonazepam (Clonazepam) 0.5 Mg Tab, TAB PO 03/17/24 Past Medical History Patient Family History: Diabetes mellitus G8 FATHER H&P Exam Vital Signs Vital Signs Date Time Temp Pulse Resp B/P (MAP) Pulse Ox O2 Delivery O2 Flow Rate FiO2 08/23/24 05:00 98.0 73 19 111/83 (92) 97 98.0 08/22/24 23:27 Nasal Cannula* 2 28 General Appeara: Well developed, Well nourished, Normal Appearance, Obese Neuro/Mental St: Alert, Oriented Appearance: Appropriate appearance, Appropriate insight Eye contact/ Speech: Cooperative, Good eye contact, Normal speech Skin Exam: Normal inspection, Normal color, Warm/dry Labs/Xrays [place] [id number] Ph: [phone] DIAGNOSTIC IMAGING Diagnostic Imaging Report : [id number] Signed PATIENT: CRISTINA LA ACCT: [id number] UNIT: [id number] : 1980 LOC: ER ROOM / BED: / AGE / SEX: 43 / M ADM STATUS: REG ER SERVICE 16 ORDERING PHYSICIAN: KEN PIZARRO PROCEDURE(s): PELVS - PELVIS AP REASON: RULE OUT FOREGIN BODY IN PENIS ORDER NUMBER(s): [id number], ACCESSION NUMBER(s): [id number] CLINICAL INDICATION: RULE OUT FOREGIN BODY IN PENIS TECHNIQUE: Single frontal view of the pelvis XY PELVIS AP Comparison: None FINDINGS/IMPRESSION: There is no evidence of acute fracture or dislocation. No metallic foreign bodies. There is a faint linear density near the tip of the penis that measures up to 2.5 cm. Finding could represent artifact from overlapping structures although given the provided history a foreign body can not be entirely excluded. Recommend clinical correlation and may consider ultrasound. ATED BY: HARMEET SHERWOOD DO DICTATED DATE/TIME: 08/22/241849 SIGNED BY: HARMEET SHERWOOD DO SIGNED DATE/TIME: 08/22/241849 CC: [place] [id number] Ph: [phone] DIAGNOSTIC IMAGING Diagnostic Imaging Report : [id number] Signed PATIENT: CRISTINA LA ACCT: [id number] UNIT: [id number] : 1980 LOC: ER ROOM / BED: / AGE / SEX: 43 / M ADM STATUS: REG ER SERVICE 08 ORDERING PHYSICIAN: KEN PIZARRO PROCEDURE(s): PELUS - PELVIC REASON: RULE OUT PENILE FOREIGN BODY (PLASTIC STRAW) ORDER NUMBER(s): [id number], ACCESSION NUMBER(s): [id number] PELVIC ULTRASOUND CLINICAL HISTORY: RULE OUT PENILE FOREIGN BODY (PLASTIC STRAW) COMPARISON: None TECHNIQUE: Grayscale and color flow imaging of the penile structures performed to evaluate for foreign body. Findings and impression: Tubular, thin-walled structure seen within the imaged penile urethra. This claude ures approximately 2.8 x 0.6 x 0.8 cm. ATED BY: JOSEPH KRAMER MD DICTATED DATE/TIME: 08/22/242002 SIGNED BY: JOSEPH KRAMER MD SIGNED DATE/TIME: 08/22/242002 CC: Labs Test 08/23/24 07:49 08/23/24 06:07 08/22/24 20:30 08/22/24 18:39 Range/Units Sodium Level 141 136-145 mmol/L Potassium Level 4.2 3.5-5.1 mmol/L Chloride Level 105 98-107 mmol/L Carbon Dioxide Level 27 20-31 mmol/L Anion Gap 9 5-15 Blood Urea Nitrogen 13 9-23 mg/dL Creatinine 0.82 0.700-1.30 mg/dL Glomerular Filtration Rate Calc 113 >90 mL/min BUN/Creatinine Ratio 15.9 10.0-20.0 Serum Glucose 110 H 74-106 mg/dL Calcium Level 9.3 8.7-10.4 mg/dL Total Bilirubin 0.3 0.2-1.0 mg/dL Aspartate Amino Transferase (AST) 30 13-40 U/L Alanine Aminotransferase (ALT) 35 7-40 U/L Alkaline Phosphatase 75 46-116 U/L Total Protein 6.6 5.7-8.2 g/dL Albumin 3.9 3.2-4.8 g/dL Urine Color Yellow Yellow Urine Clarity Clear Clear Urine pH 6.0 5.0-9.0 Urine Specific [place] 1.031 1.001-1.035 Urine Protein Trace H Negative Urine Ketones Trace Negative Urine Blood 1+ H Negative /uL Urine Nitrite Negative Negative Urine Bilirubin Negative Negative Urine Urobilinogen Normal Negative mg/dL Urine Leukocyte Esterase 2+ Negative /uL Urine RBC 27 0 - 3 /hpf Urine Microscopic WBC 43 H 0-3 /HPF Urine Squamous Epithelial Cells Few <5 /hpf Urine Bacteria None seen None Seen /hpf Urine Mucus Few None Seen Urine Glucose Normal Normal mg/dL Urine Opiates Screen Neg NEGATIVE Urine Fentanyl Screen Neg NEGATIVE Urine Barbiturates Screen Neg NEGATIVE Urine Phencyclidine Screen Neg NEGATIVE Urine Amphetamines Screen Neg NEGATIVE Urine Benzodiazepines Screen Neg NEGATIVE Urine Cocaine Screen Neg NEGATIVE Urine Cannabinoids Screen Neg NEGATIVE Eosinophils (%) (Auto) 2.3 0.0-7.0 % Eosinophils # (Auto) 0.1 0-0.8 10 ^3/uL Basophils # (Auto) 0 0-0.2 10 ^3/uL Nucleated Red Blood Cells 0.1 % Prothrombin Time 10.9 9.3-11.8 sec Prothrombin Time INR 1.03 0.9-1.15 Assessment/Plan Problem List: (1) Foreign body in penis Plan cleared from urology for outpt cystoscopy and foreign body retrieval treat UTI Plan discussed with: Patient DELORIS VALDEZ TRINA Aug 23, 2024 08:33
[2024-08-23] MEDS: PANTOPRAZOLE 40 MG TAB PO SCH (09:49)
[2024-08-23] MEDS: TAMSULOSIN HYDROCHLORIDE 0.4 MG CAP PO SCH (09:49)
[2024-08-23] MEDS: FUROSEMIDE 20 MG TAB PO SCH (09:50)
[2024-08-23] MEDS: FLUTICASONE PROP NASAL SPR 0.05 % (50MCG) 16GM SCH (09:51)
[2024-08-23 11:18] LABS: Basophils # (auto) 0 10 ^3/uL (0-0.2); Basophils % (auto) 0.6 % (0.0-2.0); Eosinophils # (auto) 0.1 10 ^3/uL (0-0.8); Eosinophils % (auto) 2.6 % (0.0-7.0); Hematocrit 40.3 % (41.0-53.0); Hemoglobin 13.6 g/dL (13.5-17.5); Lymphocytes # (auto) 1.2 10 ^3/uL (0.4-5.4); Lymphocytes % (auto) 29.5 % (10.0-50.0); Mean Corpuscular Hemoglobin 28.6 pg (28.0-32.0); Mean Corpuscular Hgb Conc. 33.7 g/dL (32.0-36.0); Mean Corpuscular Volume 84.6 fL (80.0-100.0); Monocytes # (auto) 0.5 10 ^3/uL (0-1.3); Monocytes % (auto) 11.6 % (0.0-12.0); Neutrophils # (auto) 2.3 10 ^3/uL (1.6-8.6); Neutrophils % (auto) 55.7 % (37.0-80.0); Nucleated Red Blood Cells % 0.6 %; Platelet Count (auto) 150 10^3/uL (140-450); Red Blood Cells 4.77 10^6/uL (4.5-5.90); Red Cell Distribution Width 15.6 % (11.8-14.3); White Blood Cell 4.2 10^3/uL (4.4-10.8)
[2024-08-23] MEDS ORDERED: CIPR250T26 PO (17:50)
--- NOTE | 2024-08-23 17:56 | DVHDS2 ---
Discharge Summary Date of Admission Aug 22, 2024 at 21:26 Date of Discharge: Aug 23, 2024 Labs/Diagnostic Data: Laboratory Results Test 08/23/24 10:57 08/23/24 06:07 08/22/24 20:30 08/22/24 18:39 White Blood Count 4.2 10^3/uL (4.4-10.8) Red Blood Count 4.77 10^6/uL (4.5-5.90) Hemoglobin 13.6 g/dL (13.5-17.5) Hematocrit 40.3 % (41.0-53.0) Mean Corpuscular Volume 84.6 fL (80.0-100.0) Mean Corpuscular Hemoglobin 28.6 pg (28.0-32.0) Mean Corpuscular Hemoglobin Concent 33.7 g/dL (32.0-36.0) Red Cell Distribution Width 15.6 % (11.8-14.3) Platelet Count 150 10^3/uL (140-450) Mean Platelet Volume 7.3 fL (6.9-10.8) Neutrophils (%) (Auto) 55.7 % (37.0-80.0) Lymphocytes (%) (Auto) 29.5 % (10.0-50.0) Monocytes (%) (Auto) 11.6 % (0.0-12.0) Eosinophils (%) (Auto) 2.6 % (0.0-7.0) Basophils (%) (Auto) 0.6 % (0.0-2.0) Neutrophils # (Auto) 2.3 10 ^3/uL (1.6-8.6) Lymphocytes # (Auto) 1.2 10 ^3/uL (0.4-5.4) Monocytes # (Auto) 0.5 10 ^3/uL (0-1.3) Eosinophils # (Auto) 0.1 10 ^3/uL (0-0.8) Basophils # (Auto) 0 10 ^3/uL (0-0.2) Nucleated Red Blood Cells 0.6 % Sodium Level 141 mmol/L (136-145) Potassium Level 4.2 mmol/L (3.5-5.1) Chloride Level 105 mmol/L (98-107) Carbon Dioxide Level 27 mmol/L (20-31) Anion Gap 9 (5-15) Blood Urea Nitrogen 13 mg/dL (9-23) Creatinine 0.82 mg/dL (0.700-1.30) Glomerular Filtration Rate Calc 113 mL/min (>90) BUN/Creatinine Ratio 15.9 (10.0-20.0) Serum Glucose 110 mg/dL (74-106) Calcium Level 9.3 mg/dL (8.7-10.4) Total Bilirubin 0.3 mg/dL (0.2-1.0) Aspartate Amino Transferase (AST) 30 U/L (13-40) Alanine Aminotransferase (ALT) 35 U/L (7-40) Alkaline Phosphatase 75 U/L (46-116) Total Protein 6.6 g/dL (5.7-8.2) Albumin 3.9 g/dL (3.2-4.8) Urine Color Yellow (Yellow) Urine Clarity Clear (Clear) Urine pH 6.0 (5.0-9.0) Urine Specific [place] 1.031 (1.001-1.035) Urine Protein Trace (Negative) Urine Ketones Trace (Negative) Urine Blood 1+ /uL (Negative) Urine Nitrite Negative (Negative) Urine Bilirubin Negative (Negative) Urine Urobilinogen Normal mg/dL (Negative) Urine Leukocyte Esterase 2+ /uL (Negative) Urine RBC 27 /hpf (0 - 3) Urine Microscopic WBC 43 /HPF (0-3) Urine Squamous Epithelial Cells Few /hpf (<5) Urine Bacteria None seen /hpf (None Seen) Urine Mucus Few (None Seen) Urine Glucose Normal mg/dL (Normal) Urine Opiates Screen Neg (NEGATIVE) Urine Fentanyl Screen Neg (NEGATIVE) Urine Barbiturates Screen Neg (NEGATIVE) Urine Phencyclidine Screen Neg (NEGATIVE) Urine Amphetamines Screen Neg (NEGATIVE) Urine Benzodiazepines Screen Neg (NEGATIVE) Urine Cocaine Screen Neg (NEGATIVE) Urine Cannabinoids Screen Neg (NEGATIVE) Prothrombin Time 10.9 sec (9.3-11.8) Prothrombin Time INR 1.03 (0.9-1.15) Other Laboratory Tests 08/23/24 10:57 08/23/24 06:07 Brief Hx & Hospital Course: HPI: 43 years old male BIBA FROM [facility] FOR PENILE PAIN. PT REPORTS INSERTING FLEXIBLE STRAW IN URETHRA BECAUSE HE "WAS ITCHY". REPORTS ORANGE URINE. [facility] AND DX WITH UTI 2 DAYS AGO. PT DID NOT SINK CUTTER ANTIBIOTICS. DENIES DIFFICULTY URINATING, ABDOMINAL PAIN, FEVER, CHILLS, NAUSEA, OR VOMITING REPORTS NO FLANK PAIN OR WEAKNESS. summary: On presentation evaluation labs mostly at baseline. UA concerning for possible infection and is complicated with presentation as patient was tried to insert foreign body into urethra. UDS negative. PT INR normal. Urology consulted and evaluation recommends outpatient follow up for cystoscopy. Patient is cleared from Urology as he continues to be able to urinate and is pain-free. On day 2 patient was noted to have vital signs stable, tolerating p.o., urinating, bowel function intact, safe for discharge as per plan below. Diagnosis: Foreign object urethra acute complicated cystitis, with complication of above ZENOBIA Depression, hyperlipidemia HTN, Seizure disorder, cognitive delay autism Discharge plan: Take ciprofloxacin 250 mg twice daily for 5 days Continue other home medications Follow up with Urology outpatient for procedure Follow up with PCP to review discharge Condition at Discharge: Fair Final Diagnosis/Problems List Foreign object urethra acute complicated cystitis, with complication of above ZENOBIA Depression, hyperlipidemia HTN, Seizure disorder, cognitive delay autism Discharge Disposition: Home Discharge Instruct/Medications Diet: Regular Activity: No Restrictions, As Tolerated Follow Up/Referral: PCP, Urology Medications: Below Discharge Statement: "Patient was advised to return to the ER or call 911 if any headaches, dizziness, shortness of breath, chest pain, abdominal pain, bleeding, fevers, or worsening of medical condition. Patient was counseled about treatment plan, medications, possible side effects, patientverbalized understanding. All questions were answered to the best of my ability. This discharge took greater then 30 minutes in planning, reviewing documentation, counseling the patient, and discussing with other team members." Date of Service: Aug 23, 2024 Billing Provider: ADITI COTO MD Common Visit Codes: [id number] DISCH DAY >30min ADITI COTO MD Aug 23, 2024 17:56
== END 2024-08-23 19:00 | disposition home or self-care (01) | DRG 699 ==
LOC: EDBD 18:11 → ER 18:11 → OVERFLOW 21:26 → WEST WING 21:29
PROVIDERS: ADMIT Internal Medicine; ATTEND Internal Medicine
DX: T19.0XXA Foreign body in urethra, initial encounter (principal); F84.0 Autistic disorder; N30.00 Acute cystitis without hematuria; G47.33 Obstructive sleep apnea (adult) (pediatric); F32.A Depression, unspecified; E78.5 Hyperlipidemia, unspecified; G40.909 Epilepsy, unspecified, not intractable, without status epilepticus; I10 Essential (primary) hypertension; J44.89 Other specified chronic obstructive pulmonary disease; Z83.3 Family history of diabetes mellitus; Z88.3 Allergy status to other anti-infective agents; Z79.899 Other long term (current) drug therapy; Z88.1 Allergy status to other antibiotic agents; Z79.2 Long term (current) use of antibiotics; W44.9XXA Unspecified foreign body entering into or through a natural orifice, initial encounter
CPT/HCPCS: 36415; 72170; 76856; 80053; 80307; 81001; 85025; 85610; 87081; G0378; J1100

== ENCOUNTER 2024-09-02 12:23 | Emergency (ER) | payer OTHER, MEDICAID ==
[~2024-09-02] VITALS: Ht 180.3 cm; Wt 159.0 kg
[~2024-09-02 12:23] MED LIST changes: +CIPR250T26 PO
[2024-09-02] MEDS: SODIUM CHLORIDE 0.9% 1,000 ML IV ONE (14:00)
[2024-09-02] MEDS: METOCLOPRAMIDE HCL 5MG/ml INJ 2ml VIAL IV ONE (14:00)
[2024-09-02] MEDS: ACETAMINOPHEN 325 MG TAB PO ONE (14:00)
--- NOTE | 2024-09-02 14:21 | ED.PDOC ---
History of Present Illness HPI Comments 43 year old male ANA presents to the ED with chief complaint of headache and N/V. Patient reports that he has been experiencing a headache with associated nausea and vomiting since earlier today. Patient requests to be admitted. Patient denies any abdominal pain, diarrhea, dizziness, fever, chills, or chest pain. Chief Complaint: Headache Time Seen by MD: 14:19 Primary Care Provider: unknown Reviewed Notes: Nurses Notes, Global Logistics Manager Notes, Medications, Allergies Allergies: Coded Allergies: Brompheniramine (Verified Allergy, Severe, 06/21/24) Paliperidone (Verified Allergy, Severe, 12/11/16) Ondansetron (Unverified Allergy, Unknown, NAUSEA, 10/29/17) Risperidone (Verified Allergy, Unknown, 08/12/24) Sulfamethoxazole w/Trimethoprim (Verified Allergy, Unknown, 12/11/16) Home Meds Active Scripts Ciprofloxacin Hydrochloride (Ciprofloxacin HCl) 250 Mg Tab, 250 MG PO BID for 5 Days, #10 TAB 0 Refills Prov:ADITI COTO MD 08/23/24 Ondansetron HCl (Ondansetron Hydrochloride) 8 Mg Tab, 8 MG PO Q6HP PRN, #30 TAB Prov:BRITTANY COSBY MD 07/29/24 Loperamide Hcl (Imodium) 2 Mg Cp, 2 MG PO Q6HP PRN, #30 CAP Prov:BRITTANY COSBY MD 07/29/24 Meclizine HCl (Antivert) 25 Mg Chw, 25 MG PO Q6HP PRN, #30 TAB.CHEW Prov:BRITTANY COSBY MD 07/29/24 Levetiracetam (LEVETIRACETAM ER) 500 Mg Tab, 500 MG PO BID for 30 Days, #60 TAB 1 Refill Prov:ADITI COTO MD 06/30/24 Benzonatate (Benzonatate) 200 Mg Cap, 1 CAP PO TIDP, #30 CAP Prov:FLY CHOWDHURY 06/27/24 Dicyclomine Hcl (BENTYL CAPSULE) 10 Mg Cp, 1 CAP PO Q6HPRN PRN for 10 Days, #40 CAP 3 Refills Prov:BRITTANY COSBY MD 06/21/24 Loperamide Hcl (Imodium) 2 Mg Cp, 2 MG PO Q6HP PRN for 7 Days, #30 CAP 1 Refill Prov:BRITTANY COSBY MD 06/21/24 Ondansetron HCl (Ondansetron Hydrochloride) 8 Mg Tab, 8 MG PO Q6HP PRN for 7 Days, #28 TAB 1 Refill Prov:BRITTANY COSBY MD 06/21/24 Ciprofloxacin Hcl (Cipro) 500 Mg Tab, 1 TAB PO BID, #20 TAB Prov:ISAMAR HER MD 06/06/24 Reported Medications Pantoprazole Sodium Sesquihydr (Pantoprazole Sodium) 40 Mg Tab, 1 DAILY 06/27/24 Risperidone (Risperidone) 4 Mg Tab 06/27/24 Fluticasone Propionate (Nasal) (Fluticasone Propionate) 50 Mcg/Act Spr, ANNETTA 06/05/24 Tamsulosin Hcl (Tamsulosin Hcl) 0.4 Mg Cap 06/05/24 Hydroxyzine Hcl (Hydroxyzine Hcl) 50 Mg Tab, 1 06/05/24 Furosemide (Furosemide) 20 Mg Tab, 1 DAILY 06/05/24 Divalproex Sodium (Divalproex Sodium Dr) 250 Mg Tab, TAB PO 03/17/24 Clonazepam (Clonazepam) 0.5 Mg Tab, TAB PO 03/17/24 Information Source: Patient, Emergency Med Personnel Mode of Arrival: EMS Severity: Moderate Timing: Hours Duration: Since onset Prehospital treatment: None Past Medical History PAST MEDICAL HISTORY: Asthma, COPD, Depression, High Lipids, HTN, Seizures, Thyroid Surgical History: Denies all surgeries Family History Family History: Reviewed,noncontributory to illness Social History Smoker: Non-Smoker Alcohol: Denies ETOH Use Drugs: Denies Drug Use Lives In: Assisted Care Constitutional: denies: chills, diaphoresis, fatigue, fever, malaise, sweats, weakness, others EENTM: denies: blurred vision, double vision, ear bleeding, ear discharge, ear drainage, ear pain, ear ringing, eye pain, eye redness, hearing loss, mouth pain, mouth swelling, nasal discharge, nose bleeding, nose congestion, nose pain, photophobia, tearing, throat pain, throat swelling, voice changes, others Respiratory: denies: cough, hemoptysis, orthopnea, SOB at rest, shortness of breath, SOB with excertion, stridor, wheezing, others Cardiovascular: denies: chest pain, dizzy spells, diaphoresis, Dyspnea on exertion, edema, irregular heart beat, left arm pain, lightheadedness, palpitations, PND, syncope, others Gastrointestinal: reports: nausea, vomiting; denies: abdomen distended, abdominal pain, blood streaked bowels, constipated, diarrhea, dysphagia, difficulty swallowing, hematemesis, melena, poor appetite, poor fluid intake, rectal bleeding, rectal pain, others Genitourinary: denies: burning, dysuria, flank pain, frequency, hematuria, incontinence, penile discharge, penile sore, pain, testicle pain, testicle swelling, urgency, others Neurological: reports: headache; denies: dizziness, fainting, left sided numbness, left sided weakness, numbness, paresthesia, pre-existing deficit, right sided numbness, right sided weakness, seizure, speech problems, tingling, tremors, weakness, others Musculoskeletal: denies: back pain, gout, joint pain, joint swelling, muscle pain, muscle stiffness, neck pain, others Integumetry: denies: bruises, change in color, change in hair/nails, dryness, laceration, lesions, lumps, rash, wounds, others Allergic/Immunocompromised: denies: Difficulty Healing, Frequent Infections, Hives, Itching, others Hematologic/Lymphatic: denies: anemia, blood clots, easy bleeding, easy bruising, swollen glands, others Endocrine: denies: excessive hunger, excessive sweating, excessive thirst, excessive urination, flushing, intolerance to cold, intolerance to heat, unexplained weight gain, unexplained weight loss, others Psychiatric: denies: anxiety, bipolar disorder, depression, hopeless, panic disorder, schizophrenia, sleepless, suicidal, others All Other Systems: Reviewed and Negative Physical Exam General Appearance: No Apparent Distress, Normal HEENT: Normal ENT Inspection, Pharynx Normal, TMs Normal Neck: Full Range of Motion, Non-Tender, Normal, Normal Inspection Respiratory: Chest Non-Tender, Lungs Clear, No Accessory Muscle Use, No Respiratory Distress, Normal Breath Sounds Cardiovascular: No Edema, No JVD, No Murmur, No Gallop, Normal Peripheral Pulses, Regular Rate/Rhythm Breast Exam: Deferred Gastrointestinal: No Organomegaly, Non Tender, No Pulsatile Mass, Normal Bowel Sounds, Soft Genitalia: Deferred Pelvic: Deferred Rectal: Deferred Extremities: No calf tenderness, Normal capillary refill, Normal inspection, Normal range of motion, Non-tender, No pedal edema Musculoskeletal : Apperance: Normal Neurologic: Alert, turbine operator II-XII nml as Tested, No Motor Deficits, Normal Affect, Normal Mood, No Sensory Deficits Cerebellar Function: Normal Reflexes: Normal Skin: Dry, Normal Color, Warm Lymphatic: No Adenopathy Was a procedure done? Was a procedure done?: No Differential Dx Considerations may include: Migraine X-Ray, Labs, Meds, VS Vital Signs Date Time Temp Pulse Resp B/P (MAP) Pulse Ox O2 Delivery O2 Flow Rate FiO2 09/02/24 14:09 99.4 94 15 120/81 (94) 96 99.4 Time of 1ST Reevaluation: 15:19 Reevaluation 1ST: Unchanged Patient Education/Counseling: Diagnosis, Treatment Family Education/Counseling: Diagnosis, Treatment Additional Information The following tests were ordered, and results were reviewed by me: None Additional Information was gathered from interviewing the following independent historians: EMS I reviewed and agreed with the following test results read by other providers: None I discussed treatment and results with medical personnel and: patient Comprehensive systems review obtained and negative except for what is stated in the HPI. Departure 1 Departure Time of Disposition: 17:42 (Patient likely had a migraine he is feeling better. We will discharge patient home with outpatient follow up) Impression: Primary Impression: Migraine Qualified Codes: G43.109 - Migraine with aura, not intractable, without status migrainosus Disposition: 01 HOME / SELF CARE / HOMELESS Condition: Stable Additional Instructions: You likely had a migraine. You received medications in the ER. You can take tylenol and motrin as needed for pain. You should stay well rested and well hydrated. It is important to follow up with your regular doctor within one week. If your symptoms worsen or you have any other concerns then please return to the ER. Discharged With: Self Critical Care Note Critical Care Time?: No Stability Stability form required: No Heart Score Heart Score: Heart Score Response (Comments) Value History N/A 0 EKG N/A 0 Age N/A 0 Risk Factors N/A 0 Troponin N/A 0 Total 0 I personally scribed for NELI NUGENT MD ([email or web address]) on 09/02/24 at 14:21. Electronically submitted by Maurice Damian ([email or web address]). NELI NUGENT MD September 02, 2024 14:21
[2024-09-02 20:10] VITALS: BP 146/78; PULSE 84; RESP 18; TEMP 98; O2SAT 98
== END 2024-09-02 20:14 | disposition home or self-care (01) ==
LOC: ER 12:23 → EDBD 12:23 → ER 20:14
DX: G43.909 Migraine, unspecified, not intractable, without status migrainosus (principal); I10 Essential (primary) hypertension; J44.9 Chronic obstructive pulmonary disease, unspecified; F32.A Depression, unspecified; E78.5 Hyperlipidemia, unspecified; Z86.69 Personal history of other diseases of the nervous system and sense organs; Z79.899 Other long term (current) drug therapy; Z88.1 Allergy status to other antibiotic agents; Z88.2 Allergy status to sulfonamides; Z88.8 Allergy status to other drugs, medicaments and biological substances

== ENCOUNTER 2024-09-12 16:02 | Inpatient (IN) | payer OTHER, MEDICAID ==
[~2024-09-12] VITALS: Ht 180.3 cm; Wt 162.7 kg
[2024-09-12] VITALS (7 sets, daily range): BP systolic 126–138; BP diastolic 79–83; PULSE 76–92; RESP 18–23; TEMP 97.8–98.1; O2SAT 92–98
--- NOTE | 2024-09-12 16:23 | ED.PDOC ---
SOB-HPI HPI Comments 43-year-old male known history of asthma, autism presents here via EMS for asthma exacerbation. Patient states he woke up this morning with difficulty breathing and chills. He gave himself albuterol at home without any relief. EMS arrived and found him to be satting 94 95% on room air. With diminished breath sounds. They gave him 2 of albuterol and 1 of Atrovent. Patient continued to be 94 95% on room air. At this time patient continues to state he does not feel well and he is having difficulty breathing. Denies any recent fever, denies any recent cough cold runny nose. Chief Complaint: Shortness of Breath Time Seen by MD: 16:08 Primary Care Provider: UNKNOWN Mode of Arrival: EMS Past Medical History PAST MEDICAL HISTORY: Asthma, COPD, Depression, High Lipids, HTN, Seizures, Thyroid Surgical History: Denies all surgeries Family History Family History: Reviewed,noncontributory to illness Social History Smoker: Non-Smoker Alcohol: Denies ETOH Use Drugs: Denies Drug Use Lives In: Assisted Care Respiratory: reports: shortness of breath All Other Systems: Reviewed and Negative Physical Exam General Appearance: Mild Distress, Normal HEENT: Normal ENT Inspection, Pharynx Normal, TMs Normal Neck: Full Range of Motion, Non-Tender, Normal, Normal Inspection Respiratory: Chest Non-Tender, No Accessory Muscle Use, No Respiratory Distress, Other (Diminished breath sounds bilaterally) Cardiovascular: Normal Peripheral Pulses, Regular Rate/Rhythm Breast Exam: Deferred Gastrointestinal: Non Tender, Normal Bowel Sounds, Soft Genitalia: Deferred Pelvic: Deferred Rectal: Deferred Extremities: No calf tenderness, Normal inspection, Normal range of motion Musculoskeletal : Apperance: Normal Neurologic: Alert, No Motor Deficits, Normal Affect, Normal Mood, No Sensory Deficits Cerebellar Function: Normal Reflexes: Normal Skin: Dry, Normal Color, Warm Lymphatic: No Adenopathy Was a procedure done? Was a procedure done?: No Differential Dx Differential Diagnosis: Anxiety, Pneumothorax, Other Comments CHF, asthma exacerbation, pneumonia, URI X-Ray, Labs, Meds, VS Vital Signs Date Time Temp Pulse Resp B/P (MAP) Pulse Ox O2 Delivery O2 Flow Rate FiO2 09/12/24 17:06 79 22 92 Nasal Cannula* 2 28 09/12/24 17:03 83 20 126/83 (97) 91 09/12/24 16:38 18 94 Room Air* 0 21 09/12/24 16:09 98.1 88 24 135/102 (113) 100 98.1 Lab Test 09/12/24 16:33 Range/Units White Blood Count 4.6 4.4-10.8 10^3/uL Red Blood Count 4.96 4.5-5.90 10^6/uL Hemoglobin 14.0 13.5-17.5 g/dL Hematocrit 41.7 41.0-53.0 % Mean Corpuscular Volume 84.1 80.0-100.0 fL Mean Corpuscular Hemoglobin 28.1 28.0-32.0 pg Mean Corpuscular Hemoglobin Concent 33.5 32.0-36.0 g/dL Red Cell Distribution Width 15.7 H 11.8-14.3 % Platelet Count 156 140-450 10^3/uL Mean Platelet Volume 7.0 6.9-10.8 fL Neutrophils (%) (Auto) 59.0 37.0-80.0 % Lymphocytes (%) (Auto) 26.8 10.0-50.0 % Monocytes (%) (Auto) 12.2 H 0.0-12.0 % Eosinophils (%) (Auto) 1.6 0.0-7.0 % Basophils (%) (Auto) 0.4 0.0-2.0 % Neutrophils # (Auto) 2.7 1.6-8.6 10 ^3/uL Lymphocytes # (Auto) 1.2 0.4-5.4 10 ^3/uL Monocytes # (Auto) 0.6 0-1.3 10 ^3/uL Eosinophils # (Auto) 0.1 0-0.8 10 ^3/uL Basophils # (Auto) 0 0-0.2 10 ^3/uL Nucleated Red Blood Cells 0.1 % Sodium Level 140 136-145 mmol/L Potassium Level 3.9 3.5-5.1 mmol/L Chloride Level 102 98-107 mmol/L Carbon Dioxide Level 29 20-31 mmol/L Anion Gap 9 5-15 Blood Urea Nitrogen 8 L 9-23 mg/dL Creatinine 0.95 0.700-1.30 mg/dL Glomerular Filtration Rate Calc 103 >90 mL/min BUN/Creatinine Ratio 8.4 L 10.0-20.0 Serum Glucose 142 H 74-106 mg/dL Calcium Level 8.8 8.7-10.4 mg/dL Current Medications Medications (Trade) Dose Ordered Sig/[place] Route Start Time Stop Time Status Last Admin Albuterol (Ventolin Medneb) 5 mg ONCE ONCE NEB 09/12/24 16:30 09/12/24 16:31 DC 09/12/24 16:37 Dexamethasone Sodium Phosphate (Decadron Injection) 10 mg ONCE ONCE IV 09/12/24 16:30 09/12/24 16:31 DC 09/12/24 17:01 Ipratropium [place] (Atrovent Medneb) 0.5 mg ONCE ONCE NEB 09/12/24 16:30 09/12/24 16:31 DC 09/12/24 16:37 43-year-old male presents here with asthma exacerbation. He has a known history of asthma. He states despite the albuterol at home and 2 albuterol via EMS and 1 Atrovent by EMS, he continues to feel short of breath. Has diminished breath sounds on my examination. Patient has received additional albuterol and Atrovent here in the ER. Although oxygen level continues to remain 95-100% in the ER, patient continues to report difficulty breathing. At this time patient prefers to be admitted. Hospitalist team has been contacted. Time of 1ST Reevaluation: 17:00 Reevaluation 1ST: Unchanged Patient Education/Counseling: Diagnosis, Treatment, Prognosis, Need For Follow Up Family Education/Counseling: No Family Present Departure 1 Departure Time of Disposition: 17:05 Impression: Primary Impression: Asthma exacerbation Qualified Codes: J45.901 - Unspecified asthma with (acute) exacerbation Disposition: ADMITTED INPATIENT Condition: Fair Critical Care Note Critical Care Time?: No Stability Stability form required: No Heart Score Heart Score: Heart Score Response (Comments) Value History N/A 0 EKG N/A 0 Age N/A 0 Risk Factors N/A 0 Troponin N/A 0 Total 0 JAN SORIANO MD September 12, 2024 16:22
[2024-09-12] MEDS: ALBUTEROL SULF 2.5 MG/0.5ML(0.5%) NEB SOLN NEB ONE (16:37)
[2024-09-12] MEDS: IPRATROPIUM BROM 0.5 MG/2.5ML INH SOL NEB ONE (16:37)
[2024-09-12 16:43] LABS: Basophils # (auto) 0 10 ^3/uL (0-0.2); Basophils % (auto) 0.4 % (0.0-2.0); Eosinophils # (auto) 0.1 10 ^3/uL (0-0.8); Eosinophils % (auto) 1.6 % (0.0-7.0); Hematocrit 41.7 % (41.0-53.0); Lymphocytes # (auto) 1.2 10 ^3/uL (0.4-5.4); Lymphocytes % (auto) 26.8 % (10.0-50.0); Mean Corpuscular Hemoglobin 28.1 pg (28.0-32.0); Mean Corpuscular Hgb Conc. 33.5 g/dL (32.0-36.0); Mean Corpuscular Volume 84.1 fL (80.0-100.0); Monocytes # (auto) 0.6 10 ^3/uL (0-1.3); Monocytes % (auto) 12.2 % (0.0-12.0); Neutrophils # (auto) 2.7 10 ^3/uL (1.6-8.6); Nucleated Red Blood Cells % 0.1 %; Platelet Count (auto) 156 10^3/uL (140-450); Red Blood Cells 4.96 10^6/uL (4.5-5.90); Red Cell Distribution Width 15.7 % (11.8-14.3); White Blood Cell 4.6 10^3/uL (4.4-10.8)
[2024-09-12 16:50] LABS: Chloride 102 mmol/L (98-107); Potassium 3.9 mmol/L (3.5-5.1); Sodium 140 mmol/L (136-145)
[2024-09-12 16:51] LABS: Anion Gap 9 (5-15); Carbon Dioxide 29 mmol/L (20-31)
[2024-09-12 16:52] LABS: Calcium 8.8 mg/dL (8.7-10.4)
[2024-09-12 16:56] LABS: BUN/Creatinine Ratio 8.4 (10.0-20.0)
--- NOTE | 2024-09-12 16:59 | DVH ---
CHEST RADIOGRAPH Indication: RO PNA Technique: Single frontal view of the chest was obtained Comparison: XY CHEST XRAY 1 VIEW on DOS: 06/27/24, XY CHEST PORTABLE on DOS: 03/17/24 FINDINGS: Lines and Tubes: None Lungs: No focal consolidation. Pleura: No effusion. No pneumothorax. Cardiomediastinal contours: Unremarkable Bones: No acute osseous abnormality. IMPRESSION: 1. No acute cardiopulmonary disease.
[2024-09-12] MEDS: DexAMETHasone SOD PHOS 10MG/1ML VIAL INJ IV ONE (17:01)
[2024-09-12 17:11] LABS: Blood Urea Nitrogen 8 mg/dL (9-23); Glucose 142 mg/dL (74-106)
[2024-09-12] MEDS ORDERED: ACETAMINOPHEN 325 MG TAB PO PRN (18:30)
[2024-09-12] MEDS ORDERED: HYDROcodone-ACET 5/325MG TAB PO PRN (18:30)
[2024-09-12] MEDS ORDERED: PROMETHAZINE HCL 6.25 MG/5 ML ORAL SYRUP PO PRN (18:30)
[2024-09-12] MEDS ORDERED: DOCUSATE SOD 100 MG CAP PO PRN (18:30)
[2024-09-12] MEDS ORDERED: clonazePAM 0.5 MG TAB PO PRN (18:30)
--- NOTE | 2024-09-12 19:23 | DVHHP2 ---
History of Present Illness Reason for Visit: Asthma exacerbation History of Present Illness The patient is a 43-year-old male morbidly obese with past medical history of seizure, thyroid disease, depression, COPD, and asthma who presented to [facility] ED for evaluation of asthma exacerbation. Patient reports he wok e up this morning with difficulty breathing and chills, self medicated with albuterol at home without any relief, getting worse that EMS were called. Patient was stabilized by EMS EN route to our facility ED. patient was seen and evaluated in the ED, laboratory data shows WBC 4.6, platelets 156, sodium 140, potassium 3.9, BUN eight, creatinine 0.95, glucose 142, blood pressure 126/83, heart rate 80, temperature 98.1 F, O2 saturation 92% on oxygen. Chest x-ray show no acute cardiopulmonary disease. Patient was started on IV Solu-Medrol, please see medication orders section in the computer. On my assessment, patient denied chest pain, no headache, no dizziness, no diaphoresis, currently on oxygen, no nausea, no vomiting, no fever, no chills. Patient was admitted for further evaluation and medical management. Past Medical History Asthma, COPD, Depression, High Lipids, HTN, Seizures, Thyroid Past Surgical History Denies all surgeries Family History Reviewed, noncontributory to the management of this case. Past Social History The patient lives at home, denies smoking, alcohol or illicit drugs abuse. Review of Systems Constitutional: Yes: Weakness; No: Fever, Chills, Sweats, Malaise, Other Eyes: No: Pain, Vision change, Conjunctivae inflammation, Eyelid inflammation, Other, Redness ENT: No: Ear pain, Ear discharge, Nose pain, Nose discharge, Nose congestion, Mouth pain, Mouth swelling, Throat pain, Throat swelling, Other Respiratory: Shortness of breath, SOB with excertion, Wheezing; No: Cough, Dry, Hemoptysis, Pleuritic Pain, Sputum, Wheezing, Other Cardiovascular: No: Chest Pain, Palpitations, Orthopnea, Paroxysmal Noc. Dyspnea, Edema, Lt Headedness, Other Gastrointestinal: No: Nausea, Vomiting, Abdominal Pain, Diarrhea, Constipation, Melena, Hematochezia, Other Genitourinary: No Dysuria, No Frequency, No Incontinence, No Hematuria, No Retention, No Other Musculoskeletal: No: other, neck pain, shoulder pain, arm pain, back pain, hand pain, leg pain, foot pain Skin: No: Rash, Lesions, Jaundice, Bruising, Other Neurological: No: Weakness, Numbness, Incoordination, Change in speech, Confusion, Seizures, Other Allergies: Coded Allergies: Brompheniramine (Verified Allergy, Severe, 06/21/24) Paliperidone (Verified Allergy, Severe, 12/11/16) Ondansetron (Unverified Allergy, Unknown, NAUSEA, 10/29/17) Risperidone (Verified Allergy, Unknown, 08/12/24) Sulfamethoxazole w/Trimethoprim (Verified Allergy, Unknown, 12/11/16) Medications Current Medications Medications Dose Ordered Sig/[place] Route Start Time Stop Time Status Last Admin Dose Admin Albuterol 2.5 mg Q4HPRN PRN NEB 09/12/24 18:30 Ipratropium [place] 0.5 mg Q4HPRN PRN NEB 09/12/24 18:30 Methylprednisolone Sodium Succinate 40 mg Q8HR IV 09/12/24 22:00 Famotidine 20 mg Q12HR IV 09/12/24 22:00 Clonazepam 0.5 mg Q12HP PRN PO 09/12/24 18:30 Divalproex Sodium 250 mg BID PO 09/12/24 22:00 Promethazine HCl 12.5 mg Q4HP PRN PO 09/12/24 18:30 Sodium Chloride 10 ml Q8HR IV 09/12/24 22:00 Acetaminophen/ Hydrocodone Bitart 1 tab Q4HP PRN PO 09/12/24 18:30 Docusate Sodium 100 mg BIDPRN PRN PO 09/12/24 18:30 Acetaminophen 650 mg Q6HP PRN PO 09/12/24 18:30 Exam Vital Signs Vital Signs Date Time Temp Pulse Resp B/P (MAP) Pulse Ox O2 Delivery O2 Flow Rate FiO2 09/12/24 19:14 98.1 81 20 126/83 92 2.0 28 98.1 09/12/24 19:02 Nasal Cannula* General Appearance: Alert, Oriented X3, Cooperative, No acute distress HEENT: Atraumatic, PERRLA, EOMI, Mucous membr. moist/pink Respiratory: Normal air movement, Other (Wheezing) Cardiovascular: Regular rate, Normal S1, Normal S2, No murmurs Abdominal: Normal bowel sounds, Soft, No tenderness, No hepatospenomegaly, No masses Extremities: No clubbing, No cyanosis, No edema, Normal pulses, No tenderness/swelling Skin: No rashes, No breakdown, No significant lesion Neuro: Normal speech, Normal tone, Sensation intact, Cranial nerves 3-12 NL, Reflexes 2+, Other (Generalized weakness) Psych/Mental Status: Mental status NL, Mood NL Labs/Xrays Labs Test 09/12/24 16:33 Range/Units White Blood Count 4.6 4.4-10.8 10^3/uL Red Blood Count 4.96 4.5-5.90 10^6/uL Hemoglobin 14.0 13.5-17.5 g/dL Hematocrit 41.7 41.0-53.0 % Mean Corpuscular Volume 84.1 80.0-100.0 fL Mean Corpuscular Hemoglobin 28.1 28.0-32.0 pg Mean Corpuscular Hemoglobin Concent 33.5 32.0-36.0 g/dL Red Cell Distribution Width 15.7 H 11.8-14.3 % Platelet Count 156 140-450 10^3/uL Mean Platelet Volume 7.0 6.9-10.8 fL Neutrophils (%) (Auto) 59.0 37.0-80.0 % Lymphocytes (%) (Auto) 26.8 10.0-50.0 % Monocytes (%) (Auto) 12.2 H 0.0-12.0 % Eosinophils (%) (Auto) 1.6 0.0-7.0 % Basophils (%) (Auto) 0.4 0.0-2.0 % Neutrophils # (Auto) 2.7 1.6-8.6 10 ^3/uL Lymphocytes # (Auto) 1.2 0.4-5.4 10 ^3/uL Monocytes # (Auto) 0.6 0-1.3 10 ^3/uL Eosinophils # (Auto) 0.1 0-0.8 10 ^3/uL Basophils # (Auto) 0 0-0.2 10 ^3/uL Nucleated Red Blood Cells 0.1 % Sodium Level 140 136-145 mmol/L Potassium Level 3.9 3.5-5.1 mmol/L Chloride Level 102 98-107 mmol/L Carbon Dioxide Level 29 20-31 mmol/L Anion Gap 9 5-15 Blood Urea Nitrogen 8 L 9-23 mg/dL Creatinine 0.95 0.700-1.30 mg/dL Glomerular Filtration Rate Calc 103 >90 mL/min BUN/Creatinine Ratio 8.4 L 10.0-20.0 Serum Glucose 142 H 74-106 mg/dL Calcium Level 8.8 8.7-10.4 mg/dL PATIENT: CRISTINA LA ACCT: [id number] UNIT: [id number] : 1980 LOC: ER ROOM / BED: / AGE / SEX: 43 / M ADM STATUS: REG ER SERVICE 1623 ORDERING PHYSICIAN: JAN SORIANO MD PROCEDURE(s): CXRP - CHEST PORTABLE REASON: RO PNA ORDER NUMBER(s): [id number], ACCESSION NUMBER(s): [id number] CHEST RADIOGRAPH Indication: RO PNA Technique: Single frontal view of the chest was obtained Comparison: XY CHEST XRAY 1 VIEW on DOS: 06/27/24, XY CHEST PORTABLE on DOS: 03/17/24 FINDINGS: Lines and Tubes: None Lungs: No focal consolidation. Pleura: No effusion. No pneumothorax. Cardiomediastinal contours: Unremarkable Bones: No acute osseous abnormality. IMPRESSION: 1. No acute cardiopulmonary disease. Assessment/Plan Assessment/Plan Asthma exacerbation Generalized weakness Morbid obesity COPD with acute exacerbation Unspecified asthma with (acute) exacerbation Plan 1. Admit to telemetry unit 2. Breathing treatment 3. Pain control management 4. Management of fluids and electrolytes 5. Consultation for hospitalist 6. Diagnostic tests chest x-ray 7. DVT prophylaxis-on SCDs 8. Repeat labs CBC, CMP in a.m. 9. Continue with current medical management 10. Treatment plan discussed with patient and RN. Patient verbalized understanding. Plan discussed with: Patient, Other (RN) My Orders Orders - DAYANNA JAMES DNP Procedure Category Date Status Time Albuterol Medneb PHA 09/12/24 In Process (Ventolin Medneb) 18:30 Ipratropium Medneb PHA 09/12/24 In Process (Atrovent Medneb) 18:30 Methylprednisolone PHA 09/12/24 In Process Sod Succ (Solu Medrol 22:00 Famotidine Injection PHA 09/12/24 In Process (Pepcid Injection) 22:00 Clonazepam Tablet PHA 09/12/24 In Process (Klonopin Tablet) 18:[address] Tablet PHA 09/12/24 In Process (Depakote "Dr" Tabl 22:00 Promethazine Plain PHA 09/12/24 In Process Syrup (Phenergan Plai 18:30 Allergies EDIS 09/12/24 In Process 18:21 Code Status CODE 09/12/24 Transmitted 18:21 Sodium Chloride Lock PHA 09/12/24 In Process (Saline Lock Ns) 22:00 Oxygen Per Hour RT 09/12/24 Transmitted 18:21 Hydrocodone-Acet PHA 09/12/24 In Process 5/325mg Tab ([place] 18:30 Docusate Sodium PHA 09/12/24 In Process Capsule (Colace 18:30 Complete Blood Count LAB 09/13/24 Verified 04:00 Comprehensive LAB 09/13/24 Verified Metabolic Panel 04:00 Cardiac DIET 09/12/24 Transmitted Diet-2gna,Lofat,Lochol Dinner Condition: Serious EDIS 09/12/24 In Process 18:21 Acetaminophen Tablet PHA 09/12/24 In Process (Tylenol Tablet) 18:30 Bedrest With Bathroom EDIS 09/12/24 In Process Privileg 18:21 Sequential EDIS 09/12/24 In Process Compression Device Admit ADMIT 09/12/24 Verified 19:22 Nitroglycerin PHA 09/12/24 Verified Sublingual (Ntrostat 19:30 Morphine Sulfate PHA 09/12/24 Verified Injection 19:30 Notify Md Of Changes [facility] 09/12/24 Verified From Base 19:22 Circus Supervisor For [facility] 09/12/24 Verified 24 Hours 19:22 Emergency Dysrhythmia [facility] 09/12/24 Verified Protocol 19:22 Rhythm Strips Once [facility] 09/12/24 Verified Every Shift 19:22 Oxygen By Nasal RT 09/12/24 Verified Cannula 19:22 Problem List: (1) Asthma exacerbation (2) Generalized weakness (3) Morbid obesity (4) COPD with acute exacerbation (5) Unspecified asthma with (acute) exacerbation Date of Service: September 12, 2024 Billing Provider: DAYANNA JAMES DNP Common Visit Codes: [id number] INP/OBS CARE (HIGH) DAYANNA JAMES DNP September 12, 2024 19:23
[2024-09-12] MEDS ORDERED: NITROGLYCERIN 0.4 MG SL TAB SL PRN (19:30)
[2024-09-12] MEDS ORDERED: MORPHINE SULFATE INJ 2 MG/ml SYRG IV PRN (19:30)
[2024-09-12] MEDS ORDERED: HALO10TA18 PO (21:34)
[2024-09-12] MEDS ORDERED: DIVA1TAB59 PO (21:34)
[2024-09-12] MEDS ORDERED: TRAZ-228 PO (21:34)
[2024-09-12] MEDS ORDERED: PROP1TAB51 PO (21:34)
[2024-09-12] MEDS ORDERED: LISI20TA56 PO (21:34)
[2024-09-12] MEDS ORDERED: HYDR-3682 PO (21:34)
[2024-09-12] MEDS: methylPREDNISolone SOD SUCC 40 MG/ML VL IV SCH (22:40)
[2024-09-12] MEDS: ALBUTEROL SULF 2.5 MG/0.5ML(0.5%) NEB SOLN NEB PRN (22:40)
[2024-09-12] MEDS: IPRATROPIUM BROM 0.5 MG/2.5ML INH SOL NEB PRN (22:40)
[2024-09-12] MEDS: FAMOTIDINE (10MG/ML) 2ML VL IV SCH (22:40)
[2024-09-12] MEDS: SODIUM CHLOR 0.9% PF (SALINE LOCK) 10ML VIAL/SYR IV SCH (22:41)
[2024-09-13] VITALS (13 sets, daily range): BP systolic 113–137; BP diastolic 64–84; PULSE 84–98; RESP 17–21; TEMP 97.9–99.1; O2SAT 87–99
[2024-09-13 08:06] LABS: Albumin 3.6 g/dL (3.2-4.8); Alkaline Phosphatase 75 U/L (46-116); Anion Gap 11 (5-15); BUN/Creatinine Ratio 11.1 (10.0-20.0); Bilirubin, Total 0.4 mg/dL (0.2-1.0); Blood Urea Nitrogen 9 mg/dL (9-23); Calcium 9.8 mg/dL (8.7-10.4); Chloride 104 mmol/L (98-107); Potassium 4.8 mmol/L (3.5-5.1); Total Protein 6.8 g/dL (5.7-8.2)
[2024-09-13 08:08] LABS: Alanine Aminotransferase 40 U/L (7-40); Aspartate Aminotransferase 45 U/L (13-40); Carbon Dioxide 19 mmol/L (20-31); Glucose 210 mg/dL (74-106); Sodium 134 mmol/L (136-145)
[2024-09-13 10:34] LABS: Basophils # (auto) 0 10 ^3/uL (0-0.2); Basophils % (auto) 0.6 % (0.0-2.0); Eosinophils # (auto) 0 10 ^3/uL (0-0.8); Eosinophils % (auto) 0.5 % (0.0-7.0); Hematocrit 43.8 % (41.0-53.0); Hemoglobin 14.6 g/dL (13.5-17.5); Lymphocytes # (auto) 0.5 10 ^3/uL (0.4-5.4); Lymphocytes % (auto) 8.9 % (10.0-50.0); Mean Corpuscular Hemoglobin 28.3 pg (28.0-32.0); Mean Corpuscular Hgb Conc. 33.2 g/dL (32.0-36.0); Mean Corpuscular Volume 85.1 fL (80.0-100.0); Monocytes # (auto) 0.3 10 ^3/uL (0-1.3); Monocytes % (auto) 4.2 % (0.0-12.0); Neutrophils # (auto) 5.2 10 ^3/uL (1.6-8.6); Neutrophils % (auto) 85.8 % (37.0-80.0); Nucleated Red Blood Cells % 0.3 %; Platelet Count (auto) 162 10^3/uL (140-450); Red Blood Cells 5.15 10^6/uL (4.5-5.90); Red Cell Distribution Width 15.2 % (11.8-14.3)
--- NOTE | 2024-09-13 14:36 | DVHPN2 ---
Subjective 09/13 patient feeling improved. Able to talk in full sentences. We will continue treatment to complete exacerbation treatment of asthma/COPD exacerbation. Patient is as low mental function and wants to go back home as soon as he is ready. Likely DC tomorrow. Reviewed: H&P Changes from previous H/P or p: No Changes General: Per HPI Eyes: No Pain, No Vision change, No Conjunctivae inflammation, No Eyelid inflammation, No Other, No Redness ENT: No Ear pain, No Ear discharge, No Nose pain, No Nose discharge, No Nose congestion, No Mouth pain, No Mouth swelling, No Throat pain, No Throat swelling, No Other Cardiovascular: No Chest Pain, No Palpitations, No Orthopnea, No Paroxysmal Noc. Dyspnea, No Edema, No Lt Headedness, No Other Respiratory: No Cough, No Dry; Shortness of breath, SOB with excertion, W heezing; No Hemoptysis, No Pleuritic Pain, No Sputum, No Other Gastrointestinal: No Nausea, No Vomiting, No Abdominal Pain, No Diarrhea, No Constipation, No Melena, No Hematochezia, No Other Genitourinary: No Dysuria, No Frequency, No Incontinence, No Hematuria, No Retention, No Other Musculoskeletal: No other, No neck pain, No shoulder pain, No arm pain, No back pain, No hand pain, No leg pain, No foot pain Skin: No Rash, No Lesions, No Jaundice, No Bruising, No Other Objective Vitals Vital Signs Date Time Temp Pulse Resp B/P (MAP) Pulse Ox O2 Delivery O2 Flow Rate FiO2 09/13/24 12:56 98.6 91 18 113/75 (88) 87 98.6 09/13/24 12:19 Room Air 09/13/24 12:19 0 21 Intake/Output Intake and Output 09/13/24 07:00 Intake Total 210 ml Output Total 100 ml Balance 110 ml Intake Oral 210 ml Output Urine Total 100 ml Exam GEN: Healthy appearing, well-developed, NAD. Morbid obesity, intellectual disability HEENT: NC/AT; MMM. CV: RRR, no m/r/g. LUNGS: Distant breath sounds in all lung mcgarry, ABD: Soft, NT/ND, NBS, no masses or organomegaly. EXT: skin Warm, well perfused. no rashes. No clubbing, cyanosis, or edema. NEURO: Ambulating with no limitations. No focal deficits. Medications Current Medications Medications Dose Ordered Sig/[place] Route Start Time Stop Time Status Last Admin Dose Admin Albuterol 2.5 mg Q4HPRN PRN NEB 09/12/24 18:30 09/12/24 22:40 2.5 MG Ipratropium [place] 0.5 mg Q4HPRN PRN NEB 09/12/24 18:30 09/12/24 22:40 0.5 MG Methylprednisolone Sodium Succinate 40 mg Q8HR IV 09/12/24 22:00 09/13/24 11:46 40 MG Famotidine 20 mg Q12HR IV 09/12/24 22:00 09/13/24 11:46 20 MG Clonazepam 0.5 mg Q12HP PRN PO 09/12/24 18:30 Divalproex Sodium 250 mg BID PO 09/12/24 22:00 09/13/24 11:47 250 MG Promethazine HCl 12.5 mg Q4HP PRN PO 09/12/24 18:30 Sodium Chloride 10 ml Q8HR IV 09/12/24 22:00 09/13/24 05:18 10 ML Acetaminophen/ Hydrocodone Bitart 1 tab Q4HP PRN PO 09/12/24 18:30 Docusate Sodium 100 mg BIDPRN PRN PO 09/12/24 18:30 Acetaminophen 650 mg Q6HP PRN PO 09/12/24 18:30 Nitroglycerin 0.4 mg Q5MINP PRN SL 09/12/24 19:30 Morphine Sulfate 2 mg Q30M PRN IV 09/12/24 19:30 Laboratory Results Laboratory Tests 09/13/24 07:17 09/13/24 10:25 Chemistry Test 09/12/24 16:33 09/13/24 07:17 Calcium Level 8.8 mg/dL (8.7-10.4) 9.8 mg/dL (8.7-10.4) Albumin 3.6 g/dL (3.2-4.8) Total Protein 6.8 g/dL (5.7-8.2) LFT Test 09/13/24 07:17 Alanine Aminotransferase (ALT) 40 U/L (7-40) Alkaline Phosphatase 75 U/L (46-116) Aspartate Amino Transferase (AST) 45 U/L (13-40) H Total Bilirubin 0.4 mg/dL (0.2-1.0) Labs and/or images reviewed: Labs reviewed by me, Image(s) reviewed by me Assessment/Plan Assessment/Plan 09/13 patient feeling improved. Able to talk in full sentences. We will continue treatment to complete exacerbation treatment of asthma/COPD exacerbation. Patient is as low mental function and wants to go back home as soon as he is ready. Likely DC tomorrow. Diagnosis: Acute asthma /COPD exacerbation, with pneumonitis likely Neutrophilia Tachypnea > 20 Tachycardia > 90 Acute Pneumonia possible, Gram-negative Gram-positive likely History COPD Morbid obesity Plan: Duo nebs q.6h, q.4h p.r.n. as well Famotidine injection 20 q.12h for GI prophylaxis Solu-Medrol 40 IV t.i.d. Phenergan 12.5 p.o. q.4h p.r.n. for nausea/vomiting Continue home Depakote IV ceftriaxone/azithromycin Continue diet GI prophylaxis because of steroids DVT prophylaxis due to decreased mobility Telemetry Full code Plan discussed with: Patient, Other Date of Service: September 13, 2024 Billing Provider: ADITI COTO MD Common Visit Codes: [id number] INP/OBS CARE(HIGH) ADITI COTO MD September 13, 2024 14:36
[2024-09-13] MEDS: cefTRIAXone 1GM/50ML D5W 50 ML IV ONE (18:41)
[2024-09-13] MEDS: AZITHROMYCIN 500MG/ 250ML 250 ML IV ONE (18:47)
[2024-09-13] MEDS: ALBUTEROL SULF 2.5 MG/0.5ML(0.5%) NEB SOLN NEB SCH (22:43)
[2024-09-13] MEDS: IPRATROPIUM BROM 0.5 MG/2.5ML INH SOL NEB SCH (22:44)
[2024-09-14 01:00] VITALS: BP 121/65; PULSE 75; RESP 20; TEMP 98.4; O2SAT 98
[2024-09-14 05:00] VITALS: BP 117/68; PULSE 70; RESP 18; TEMP 98.4; O2SAT 91
[2024-09-14 07:18] VITALS: O2SAT 95
[2024-09-14 08:00] VITALS: PULSE 79
[2024-09-14 09:00] VITALS: BP 125/83; PULSE 79; RESP 19; TEMP 98.8; O2SAT 94
[2024-09-14] MEDS: AZITHROMYCIN 500MG/ 250ML 250 ML IV SCH (10:02)
[2024-09-14] MEDS: methylPREDNISolone SOD SUCC 40 MG/ML VL IV SCH (10:02)
[2024-09-14] MEDS: cefTRIAXone 1GM/50ML D5W 50 ML IV SCH (10:02)
[2024-09-14] MEDS ORDERED: AZIT500T66 PO (11:54)
[2024-09-14] MEDS ORDERED: PRED20TA2 PO (11:54)
--- NOTE | 2024-09-14 11:55 | DVHDS2 ---
Discharge Summary Date of Admission September 12, 2024 at 19:22 Date of Discharge: September 14, 2024 Labs/Diagnostic Data: Laboratory Results Test 09/13/24 10:25 09/13/24 07:17 White Blood Count 6.0 10^3/uL (4.4-10.8) Red Blood Count 5.15 10^6/uL (4.5-5.90) Hemoglobin 14.6 g/dL (13.5-17.5) Hematocrit 43.8 % (41.0-53.0) Mean Corpuscular Volume 85.1 fL (80.0-100.0) Mean Corpuscular Hemoglobin 28.3 pg (28.0-32.0) Mean Corpuscular Hemoglobin Concent 33.2 g/dL (32.0-36.0) Red Cell Distribution Width 15.2 % (11.8-14.3) Platelet Count 162 10^3/uL (140-450) Mean Platelet Volume 7.0 fL (6.9-10.8) Neutrophils (%) (Auto) 85.8 % (37.0-80.0) Lymphocytes (%) (Auto) 8.9 % (10.0-50.0) Monocytes (%) (Auto) 4.2 % (0.0-12.0) Eosinophils (%) (Auto) 0.5 % (0.0-7.0) Basophils (%) (Auto) 0.6 % (0.0-2.0) Neutrophils # (Auto) 5.2 10 ^3/uL (1.6-8.6) Lymphocytes # (Auto) 0.5 10 ^3/uL (0.4-5.4) Monocytes # (Auto) 0.3 10 ^3/uL (0-1.3) Eosinophils # (Auto) 0 10 ^3/uL (0-0.8) Basophils # (Auto) 0 10 ^3/uL (0-0.2) Nucleated Red Blood Cells 0.3 % Sodium Level 134 mmol/L (136-145) Potassium Level 4.8 mmol/L (3.5-5.1) Chloride Level 104 mmol/L (98-107) Carbon Dioxide Level 19 mmol/L (20-31) Anion Gap 11 (5-15) Blood Urea Nitrogen 9 mg/dL (9-23) Creatinine 0.81 mg/dL (0.700-1.30) Glomerular Filtration Rate Calc 114 mL/min (>90) BUN/Creatinine Ratio 11.1 (10.0-20.0) Serum Glucose 210 mg/dL (74-106) Calcium Level 9.8 mg/dL (8.7-10.4) Total Bilirubin 0.4 mg/dL (0.2-1.0) Aspartate Amino Transferase (AST) 45 U/L (13-40) Alanine Aminotransferase (ALT) 40 U/L (7-40) Alkaline Phosphatase 75 U/L (46-116) Total Protein 6.8 g/dL (5.7-8.2) Albumin 3.6 g/dL (3.2-4.8) Other Laboratory Tests 09/13/24 10:25 09/13/24 07:17 Brief Hx & Hospital Course: HPI: 43-year-old male morbidly obese with past medical history of seizure, thyroid disease, depression, COPD, and asthma who presented to [facility] ED for evaluation of asthma exacerbation. Patient reports he woke up this morning with difficulty breathing and chills, self medicated with albuterol at home without any relief, getting worse that EMS were called. Patient was stabilized by EMS EN route to our facility ED. patient was seen and evaluated in the ED, laboratory data shows WBC 4.6, platelets 156, sodium 140, potassium 3.9, BUN eight, creatinine 0.95, glucose 142, blood pressure 126/83, heart rate 80, temperature 98.1 F, O2 saturation 92% on oxygen. Chest x-ray show no acute cardiopulmonary disease. Patient was started on IV Solu-Medrol, please see medication orders section in the computer. On my assessment, patient denied chest pain, no headache, no dizziness, no diaphoresis, currently on oxygen, no nausea, no vomiting, no fever, no chills. Patient was admitted for further evaluation and medical management. Summary: Shortness of breath resistant to home nebulizers. In ED patient received Solu-Medrol and nebulizer treatments, but continues to require further nebs and is admitted for acute asthma exacerbation. He continues to get nebulizer treatments and steroids which leads to improvement. Patient complains also include chills and has tachycardia tachypnea and neutrophilia raising concern for possible pneumonia. Patient is also treated for pneumonia with IV antibiotics. Patient improves and is breathing better, no wheezing or rhonchi on a.m. 09/14, no oxygen requirement, no labored breathing,. Patient is stable for discharge as per plan below. Diagnosis: Acute asthma exacerbation SIRS without end-organ damage Neutrophilia Tachypnea , resolved Tachycardia , resolved Acute Pneumonia possible, Gram-negative Gram-positive likely History COPD Morbid obesity Discharge plan: -azithromycin 500mg daily x 5 days --prednisone 40mg daily for x5 days - continue other home medications - routine follow-up with PCP Condition at Discharge: Fair Final Diagnosis/Problems List Acute asthma exacerbation SIRS without end-organ damage Neutrophilia Tachypnea , resolved Tachycardia , resolved Acute Pneumonia possible, Gram-negative Gram-positive likely History COPD Morbid obesity Discharge Disposition: Home Discharge Instruct/Medications Diet: Regular Activity: No Restrictions, As Tolerated Follow Up/Referral: below Medications: below Discharge Statement: "Patient was advised to return to the ER or call 911 if any headaches, dizziness, shortness of breath, chest pain, abdominal pain, bleeding, fevers, or worsening of medical condition. Patient was counseled about treatment plan, medications, possible side effects, patientverbalized understanding. All questions were answered to the best of my ability. This discharge took greater then 30 minutes in planning, reviewing documentation, counseling the patient, and discussing with other team members." Date of Service: September 14, 2024 Billing Provider: ADITI COTO MD Common Visit Codes: [id number]-[id number] DISCH DAY >30min ADITI COTO MD September 14, 2024 11:55
[2024-09-14 14:49] VITALS: O2SAT 99
== END 2024-09-14 15:06 | disposition home or self-care (01) | DRG 177 ==
LOC: EDBD 16:02 → ER 16:06 → OVERFLOW 19:22 → TELE-WESTW 22:03
PROVIDERS: ADMIT Student in an Organized Health Care Education/Training Program; ATTEND Student in an Organized Health Care Education/Training Program
DX: J15.69 Pneumonia due to other Gram-negative bacteria (principal); J96.00 Acute respiratory failure, unspecified whether with hypoxia or hypercapnia; J44.0 Chronic obstructive pulmonary disease with (acute) lower respiratory infection; J45.901 Unspecified asthma with (acute) exacerbation; R65.10 Systemic inflammatory response syndrome (SIRS) of non-infectious origin without acute organ dysfunction; Z68.43 Body mass index [BMI] 50.0-59.9, adult; J44.1 Chronic obstructive pulmonary disease with (acute) exacerbation; E66.01 Morbid (severe) obesity due to excess calories; J15.9 Unspecified bacterial pneumonia; I10 Essential (primary) hypertension; J98.4 Other disorders of lung; F32.A Depression, unspecified; Z88.3 Allergy status to other anti-infective agents; Z88.8 Allergy status to other drugs, medicaments and biological substances; Z79.899 Other long term (current) drug therapy
CPT/HCPCS: 36415; 71045; 80048; 80053; 85025; 87081; 94640; 96374; G0378; J1100; J3490